=== PATIENT | female | born 1930 | race Caucasian/White ===

== ENCOUNTER 2016-10-15 10:20 | Inpatient (IN) | payer MEDICARE, OTHER ==
[~2016-10-15] VITALS: Ht 160 cm; Wt 55.7 kg
[~2016-10-15 10:20] MED LIST: LEVO25TA4 PO
--- OUTSIDE RECORDS SUMMARY | 2016-10-15 10:25 | XMS REPORT | Referral Summary ---
Author Author [facility] Organization [facility] Address Unknown Phone Unavailable Care Team Providers Care Sponge Fisherman Name Role Phone Barry Reyes Primary Care Physician [phone] Encounter VC Date(s): 09/19/15 - 09/19/15 [facility] [address] [place] [address] Discharge Diagnosis: Dependent edema Discharge Diagnosis: Stasis dermatitis Discharge Diagnosis: Adult onset hypothyroidism Discharge Disposition: 01-Home or Self Care Attending Physician: Barry Reyes DO Admitting Physician: Barry Reyes DO Vital Signs Most recent to 1 oldest [Reference Range]: Temperature Tympanic 37 degC [36.6-38.1 degC] (09/19/15 11:08 AM) Peripheral Pulse 76 bpm Rate [60-100 bpm] (09/19/15 11:08 AM) Blood Pressure 120/90 mmHg [90-140/60-90 mmHg] (09/19/15 11:08 AM) SpO2 98 % (09/19/15 11:08 AM) Problem List No data available for this section Allergies, Adverse Reactions, Alerts Substance Reaction Severity Status morphine Active Medications Keflex 500 mg oral capsule 500 mg 1 caps, Oral, BID, X 7 days, # 14 caps, 0 Refill(s), Pharmacy: [id number], 1 caps Oral BID,x7 days Start Date: 09/16/15 Stop Date: 09/23/15 Status: Ordered Lasix 20 mg oral tablet 20 mg 1 tabs, Oral, Daily, # 30 tabs, 0 Refill(s), Pharmacy: [facility] [id number], 1 tabs Oral Daily Start Date: 09/14/15 Status: Ordered levothyroxine 25 mcg (0.025 mg) oral tablet 25 mcg 1 tabs, Oral, Daily, # 30 tabs, 2 Refill(s), Pharmacy: [id number], 1 tabs Oral Daily Start Date: 09/15/15 Status: Ordered potassium chloride 10 mEq oral tablet, extended release 10 mEq 1 tabs, Oral, Daily, # 30 tabs, 0 Refill(s), Pharmacy: [facility] [id number], 1 tabs Oral Daily,x30 days Start Date: 09/14/15 Stop Date: 10/14/15 Status: Ordered Results No data available for this section Immunizations No data available for this section Procedures Procedure Date Related Diagnosis Body Site Cataract extraction and insertion of intraocular lens Social History Social History Type Response Smoking Status Never smoker Assessment and Plan Extracted from: Title: Ambulatory Patient Education Author: Barry Reyes DO Date: 09/19/15 Allergy Edema Edema is an abnormal buildup of fluids in your bodytissues. Edema is somewhat dependent on gravity to pull the fluid to the lowest place in your body. That makes the condition more common in the legs and thighs (lower extremities). Painless swelling of the feet and ankles is common and becomes more likely as you get older. It is also common in looser tissues, like around your eyes. When the affected area is squeezed, the fluid may move out of that spot and leave a dent for a few moments. This dent is called pitting. CAUSES There are many possible causes of edema. Eating too much salt and being on your feet or sitting for a long time can cause edema in your legs and ankles. Hot weather may make edema worse. Common medical causes of edema include: Heart failure. Liver disease. Kidney disease. Weak blood vessels in your legs. Cancer. An injury. . Some medications. Obesity. SYMPTOMS Edema is usually painless.Your skin may look swollen or shiny. DIAGNOSIS Your health care provider may be able to diagnose edema by asking about your medical history and doing a physical exam. You may need to have tests such as X- rays, an electrocardiogram, or blood tests to check for medical conditions that may cause edema. TREATMENT Edema treatment depends on the cause. If you have heart, liver, or kidney disease, you need the treatment appropriate for these conditions. General treatment may include: Elevation of the affected body part above the level of your heart. Compression of the affected body part. Pressure from elastic bandages or support stockings squeezes the tissues and forces fluid back into the blood vessels. This keeps fluid from entering the tissues. Restriction of fluid and salt intake. Use of a water pill (diuretic). These medications are appropriate only for some types of edema. They pull fluid out of your body and make you urinate more often. This gets rid of fluid and reduces swelling, but diuretics can have side effects. Only use diuretics as directed by your health care provider. HOME CARE INSTRUCTIONS Keep the affected body part above the level of your heart when you are lying down. Do not sit still or stand for prolonged periods. Do not put anything directly under your knees when lying down. Do not wear constricting clothing or garters on your upper legs. Exercise your legs to work the fluid back into your blood vessels. This may help the swelling go down. Wear elastic bandages or support stockings to reduce ankle swelling as directed by your health care provider. Eat a low-salt diet to reduce fluid if your health care provider recommends it. Only take medicines as directed by your health care provider. SEEK MEDICAL CARE IF: Your edema is not responding to treatment. You have heart, liver, or kidney disease and notice symptoms of edema. You have edema in your legs that does not improve after elevating them. You have sudden and unexplained weight gain. SEEK IMMEDIATE MEDICAL CARE IF: You develop shortness of breath or chest pain. You cannot breathe when you lie down. You develop pain, redness, or warmth in the swollen areas. You have heart, liver, or kidney disease and suddenly get edema. You have a fever and your symptoms suddenly get worse. MAKE SURE YOU: Understand these instructions. Will watch your condition. Will get help right away if you are not doing well or get worse. This information is not intended to replace advice given to you by your health care provider. Make sure you discuss any questions you have with your health care provider. Document Released: 06/24/2006 Document Revised: 11/08/2014 Document Reviewed: [facility] Patient Information 2015 [employer]. Family Medicine Compression Stockings Compression stockings are elastic stockings that "compress" your legs. This helps to increase blood flow, decrease swelling, and reduces the chance of getting blood clots in your lower legs. Compression stockings are used: After surgery. If you have a history of poor circulation. If you are prone to blood clots. If you have varicose veins. If you sit or are bedridden for long periods of time. WEARING COMPRESSION STOCKINGS Your compression stockings should be worn as instructed by your caregiver. Wearing the correct stocking size is important. Your caregiver can help measure and fit you to the correct size. When wearing your stockings, do not allow the stockings to bunch up. This is especially important around your toes or behind your knees. Keep the stockings as smooth as possible. Do not roll the stockings downward and leave them rolled down. This can form a restrictive band around your legs and can decrease blood flow. The stockings should be removed once a day for 1 hour or as instructed by your caregiver. When the stockings are taken off, inspect your legs and feet. Look for: Open sores. Red spots. Puffy areas (swelling). Anything that does not seem normal. IMPORTANT INFORMATION ABOUT COMPRESSION STOCKINGS The compression stockings should be clean, dry, and in good condition before you put them on. Do not put lotion on your legs or feet. This makes it harder to put the stockings on. Change your stockings immediately if they become wet or soiled. Do not wear stockings that are ripped or torn. You may hand-wash or put your stockings in the washing machine. Use cold or warm water with mild detergent. Do not bleach your stockings. They may be air -dried or dried in the dryer on low heat. If you have pain or have a feeling of "pins and needles" in your feet or legs, you may be wearing stockings that are too tight. Call your caregiver right away. SEEK IMMEDIATE MEDICAL CARE IF: You have numbness or tingling in your lower legs that does not get better quickly after the stockings are removed. Your toes or feet become cold and blue. You develop open sores or have red spots on your legs that do not go away. MAKE SURE YOU: Understand these instructions. Will watch your condition. Will get help right away if you are not doing well or get worse. This information is not intended to replace advice given to you by your health care provider. Make sure you discuss any questions you have with your health care provider. Document Released: 04/21/2010 Document Revised: 09/15/2012 Document Reviewed: [facility] Patient Information 2015 [employer] [facility]. Hypothyroidism Hypothyroidism is a disorder of the thyroid. The thyroid is a large gland that is located in the lower front of the neck. The thyroid releases hormones that control how the body works. With hypothyroidism, the thyroid does not make enough of these hormones. CAUSES Causes of hypothyroidism may include: Viral infections. . Your own defense system (immune system) attacking your thyroid. Certain medicines. defects. Past radiation treatments to your head or neck. Past treatment with radioactive iodine. Past surgical removal of part or all of your thyroid. Problems with the gland that is located in the center of your brain ( pituitary). SIGNS AND SYMPTOMS Signs and symptoms of hypothyroidism may include: Feeling as though you have no energy (lethargy). Inability to tolerate cold. Weight gain that is not explained by a change in diet or exercise habits. Dry skin. Coarse hair. Menstrual irregularity. Slowing of thought processes. Constipation. Sadness or depression. DIAGNOSIS Your health care provider may diagnose hypothyroidism with blood tests and ultrasound tests. TREATMENT Hypothyroidism is treated with medicine that replaces the hormones that your body does not make. After you begin treatment, it may take several weeks for symptoms to go away. HOME CARE INSTRUCTIONS Take medicines only as directed by your health care provider. If you start taking any new medicines, tell your health care provider. Keep all follow-up visits as directed by your health care provider. This is important. As your condition improves, your dosage needs may change. You will need to have blood tests regularly so that your health care provider can watch your condition. SEEK MEDICAL CARE IF: Your symptoms do not get better with treatment. You are taking thyroid replacement medicine and: You sweat excessively. You have tremors. You feel anxious. You lose weight rapidly. You cannot tolerate heat. You have emotional swings. You have diarrhea. You feel weak. SEEK IMMEDIATE MEDICAL CARE IF: You develop chest pain. You develop an irregular heartbeat. You develop a rapid heartbeat. This information is not intended to replace advice given to you by your health care provider. Make sure you discuss any questions you have with your health care provider. Document Released: 06/24/2006 Document Revised: 04/12/2015 Document Reviewed: [employer] Patient Information 2015 [employer]. No follow up information was provided. Extracted from: Title: Dependent edema, stasis Author: Barry Reyes DO Date: 09/19/15 dermatitis, hypothyroidism Assessment/Plan Adult onset hypothyroidism, Other specified hypothyroidism 1. Review of her labs demonstrate her TSH being slightly elevated. 2. She was started on levothyroxine at 0.25 mg daily. 3. Recheck TSH in 6 weeks. Ordered: Office Visit Level 4 Est 64116 Dependent edema, Localized edema 1. Her edema does not seem to have improved compared to last week. 2. Increase Lasix to 40 mg daily. 3. Recent potassium 10 milliequivalents to 3 times a day. 4. Elevate legs when resting. 5. Low salt diet recommended. 6. Increase protein in her diet. Ordered: Office Visit Level 4 Est 48552 Stasis dermatitis, Varicose veins of right lower extremity with inflammation 1. I do not find any evidence of cellulitis. Findings are more consistent with stasis dermatitis. 2. I anticipate that once we get the fluid under control the redness and warmth sensation to her lower extremities should resolve. 3. Continue the antibiotics since we already started it. Ordered: Office Visit Level 4 Est 12050
--- OUTSIDE RECORDS SUMMARY | 2016-10-15 10:25 | XMS REPORT | Referral Summary ---
Author Author [facility] Organization [facility] Address Unknown Phone Unavailable Care Team Providers Care Fountain Server Name Role Phone Barry Reyes Primary Care Physician [phone] Encounter VC Date(s): 04/26/16 - 04/26/16 [facility], [address] [place] [address] Discharge Diagnosis: HTN (hypertension) Discharge Disposition: 01-Home or Self Care Attending Physician: Barry Reyes DO Admitting Physician: Barry Reyes DO Vital Signs Most recent to 1 oldest [Reference Range]: Temperature Tympanic 35.2 degC [36.6-38.1 degC] *LOW* (04/26/16 10:34 AM) Peripheral Pulse 65 bpm Rate [60-100 bpm] (04/26/16 10:34 AM) Blood Pressure 192/102 mmHg [90-140/60-90 mmHg] *HI* (04/26/16 10:34 AM) Problem List Condition Effective Dates Status Health Status Informant Wet senile macular Active degeneration(Confirm ed) Adult onset Active hypothyroidism(Confi rmed) Allergies, Adverse Reactions, Alerts Substance Reaction Severity Status morphine Active Medications amLODIPine 5 mg oral tablet 5 mg 1 tabs, Oral, Daily, # 30 tabs, 0 Refill(s), Pharmacy: [facility] [id number], 1 tabs Oral Daily Start Date: 04/26/16 Status: Ordered levothyroxine 25 mcg (0.025 mg) oral tablet See Instructions, TAKE 1 TABLET BY MOUTH DAILY, # 30 tabs, eRx: [facility] [id number], TAKE 1 TABLET BY MOUTH DAILY Start Date: 11/28/15 Status: Ordered levothyroxine 25 mcg (0.025 mg) oral tablet 25 mcg 1 tabs, Oral, Daily, # 90 tabs, 2 Refill(s), Pharmacy: [facility] [id number], 1 tabs Oral Daily Start Date: 01/03/16 Status: Ordered lutein Oral, Daily, 0 Refill(s) Start Date: 04/26/16 Status: Ordered Results No data available for this section Immunizations No data available for this section Procedures Procedure Date Related Diagnosis Body Site Cataract extraction and insertion of intraocular lens Social History Social History Type Response Smoking Status Never smoker Assessment and Plan Extracted from: Title: Office Visit Note Author: Barry Reyes DO Date: 04/26/16 Assessment/Plan HTN (hypertension) 1. Blood pressure is significantly elevated 2. Low salt diet recommended 3. Amlodipine 5 mg daily 4. Follow-up in 2 weeks for reevaluation Ordered: Office Visit Level 4 Est 36576 Continue levothyroxine as previous.
--- OUTSIDE RECORDS SUMMARY | 2016-10-15 10:25 | XMS REPORT | Referral Summary ---
Author Author [facility] Organization [facility] Address Unknown Phone Unavailable Care Team Providers Care Equipment Service Technician Name Role Phone Barry Reyes Primary Care Physician [phone] Encounter VC Date(s): 05/10/16 - 05/10/16 [facility], Family [address] [place] [address] Discharge Diagnosis: HTN (hypertension) Discharge Disposition: 01-Home or Self Care Attending Physician: Barry Reyes DO Admitting Physician: Barry Reyes DO Vital Signs Most recent to 1 oldest [Reference Range]: Temperature Tympanic 36.3 degC [36.6-38.1 degC] *LOW* (05/10/16 1:07 PM) Peripheral Pulse 68 bpm Rate [60-100 bpm] (05/10/16 1:07 PM) Blood Pressure 130/62 mmHg [90-140/60-90 mmHg] (05/10/16 1:07 PM) Problem List Condition Effective Dates Status Health Status Informant Wet senile macular Active degeneration(Confirm ed) Adult onset Active hypothyroidism(Confi rmed) Allergies, Adverse Reactions, Alerts Substance Reaction Severity Status morphine Active Medications amLODIPine 5 mg oral tablet 5 mg 1 tabs, Oral, Daily, # 90 tabs, 3 Refill(s), Pharmacy: [facility] [id number], 1 tabs Oral Daily Start Date: 05/10/16 Status: Ordered levothyroxine 25 mcg (0.025 mg) oral tablet See Instructions, TAKE 1 TABLET BY MOUTH DAILY, # 30 tabs, eRx: [facility] [id number], TAKE 1 TABLET BY MOUTH DAILY Start Date: 11/28/15 Status: Ordered levothyroxine 25 mcg (0.025 mg) oral tablet 25 mcg 1 tabs, Oral, Daily, # 90 tabs, 2 Refill(s), Pharmacy: [facility] [id number], 1 tabs Oral Daily Start Date: 01/03/16 [...] Visit Note Author: Barry Reyes DO Date: 05/10/16 Assessment/Plan 1.HTN (hypertension) 1. Blood pressure is controlled at this time. 2. Continue with low salt diet. 3. Continue with Amlodipine 5mg daily. 4. Followup in 6 months for reevaluation. Ordered: Office Visit Level 3 Est 75598
--- OUTSIDE RECORDS SUMMARY | 2016-10-15 10:26 | XMS REPORT | Referral Summary ---
Author Author [facility] Organization [facility] Address Unknown Phone Unavailable Care Team Providers Care Correctional Corporal Name Role Phone Barry Reyes Primary Care Physician [phone] Encounter VC Date(s): 10/06/15 - 10/06/15 [facility] [address] [place] [address] Discharge Diagnosis: Wet senile macular degeneration Discharge Diagnosis: Adult onset hypothyroidism Discharge Disposition: 01-Home or Self Care Attending Physician: Brary Reyes DO Admitting Physician: Barry Reyes DO Vital Signs Most recent to 1 oldest [Reference Range]: Temperature Tympanic 36.9 degC [36.6-38.1 degC] (10/06/15 9:48 AM) Peripheral Pulse 74 bpm Rate [60-100 bpm] (10/06/15 9:48 AM) Blood Pressure 120/65 mmHg [90-140/60-90 mmHg] (10/06/15 9:48 AM) Problem List Condition Effective Dates Status Health Status Informant Wet senile macular Active degeneration(Confirm ed) Adult onset Active hypothyroidism(Confi rmed) Allergies, Adverse Reactions, Alerts Substance Reaction Severity Status morphine Active Medications levothyroxine 25 mcg (0.025 mg) oral tablet 25 mcg 1 tabs, Oral, Daily, # 30 tabs, 2 Refill(s), Pharmacy: [facility] [address], 1 tabs Oral Daily Start Date: 09/15/15 Status: Ordered Results Chemistry Most recent to 1 oldest [Reference Range]: Sodium Venous 137 mmol/L [136-145 mmol/L] (10/06/15 10:25 AM) Potassium Venous 3.7 mmol/L 1 [3.5-5.1 mmol/L] (10/06/15 10:25 AM) Calcium Ionized 1.17 mmol/L Venous [1.10-1.30 (10/06/15 10:25 AM) mmol/L] Total CO2 Venous 20 mmol/L [24-29 mmol/L] *LOW* (10/06/15 10:25 AM) Glucose Venous 139 mg/dL [70-100 mg/dL] *HI* (10/06/15 10:25 AM) BUN Venous [8-26] 17 (10/06/15 10:25 AM) Creatinine Venous 1.0 mg/dL [0.6-1.2 mg/dL] (10/06/15 10:25 AM) Venous CL [98-109 100 mmol/L mmol/L] (10/06/15 10:25 AM) 1Result Comment: This test was performed on a whole blood specimen. The presence or absence of hemolysis cannot be assessed. Hemolysis can falsely elevate potassium levels. Normals are for venous specimens only. Immunizations No data available for this section Procedures Procedure Date Related Diagnosis Body Site Cataract extraction and insertion of intraocular lens Social History Social History Type Response Smoking Status Never smoker Assessment and Plan Extracted from: Title: Transition of care Author: Barry Reyes DO Date: 10/06/15 [place] [facility]/Plan Adult onset hypothyroidism Continue with levothyroxine at 25 g daily. CKD (chronic kidney disease) stage 3, GFR 30-59 ml/min 1. Labs repeated today for basic metabolic profile and magnesium. We will adjust electrolytes accordingly. 2. Duration recommended. 3. We will avoid using diuretic in the future secondary to increased risk for electrolyte imbalance and dehydration. Ordered: Basic Metabolic Panel Magnesium Level Office Visit Level 4 Est 61917 Electrolyte imbalance As above. Ordered: Basic Metabolic Panel Magnesium Level Office Visit Level 4 Est 44886 Wet senile macular degeneration Recommendations as per shadow graph weight operator.
--- OUTSIDE RECORDS SUMMARY | 2016-10-15 10:26 | XMS REPORT | Referral Summary ---
Author Author [facility] Organization [facility] Address Unknown Phone Unavailable Care Team Providers Care Rag Sorter And Cutter Name Role Phone No PCP, States Primary Care Physician [phone] Encounter VC Date(s): 08/30/15 - 08/30/15 [facility] [address] [place] [id number] Discharge Diagnosis: History of recent fall Discharge Disposition: 01-Home or Self Care Attending Physician: Greg Cody MD Admitting Physician: Greg Cody MD Vital Signs Most recent to 1 oldest [Reference Range]: Temperature Tympanic 37.7 degC [36.6-38.1 degC] (08/30/15 10:32 AM) Peripheral Pulse 83 bpm Rate [60-100 bpm] (08/30/15 10:32 AM) Blood Pressure 120/90 mmHg [90-140/60-90 mmHg] (08/30/15 10:32 AM) SpO2 98 % (08/30/15 10:32 AM) Problem List No data available for this section Allergies, Adverse Reactions, Alerts Substance Reaction Severity Status morphine Active Medications No Known Medications Results Hematology Most recent to 1 oldest [Reference Range]: WBC [5.0-10.0 7.2 10*3/uL 10*3/uL] (08/30/15 12:00 PM) RBC [3.70-5.20] 4.30 (08/30/15 12:00 PM) Hgb [12.0-16.0 12.7 gm/dL gm/dL] (08/30/15 12:00 PM) Hct [37.0-47.0 %] 38.5 % (08/30/15 12:00 PM) MCV [80.0-96.0 fL] 89.5 fL (08/30/15 12:00 PM) MCH [26.0-34.0 pg] 29.5 pg (08/30/15 12:00 PM) MCHC [32.0-36.0 33.0 gm/dL gm/dL] (08/30/15 12:00 PM) RDW [0.0-14.5 %] 13.1 % (08/30/15 12:00 PM) Platelet [150-400 275 10*3/uL 10*3/uL] (08/30/15 12:00 PM) MPV [8.8-14.8 fL] 10.3 fL (08/30/15 12:00 PM) Neutrophils [50-70 76 % %] *HI* (08/30/15:00 PM) Lymphocytes [20-40 11 % %] *LOW* (08/30/15:00 PM) Monocytes [4-8 %] 13 % *HI* (08/30/15 12:00 PM) Eosinophils [0-6 %] 1 % (08/30/15:00 PM) Basophils [0-2 %] 0 % (08/30/15 12:00 PM) Neutro Absolute 5.47 10*3 [2.50-7.00 10*3] (08/30/15 12:00 PM) Lymph Absolute 0.76 10*3 [1.00-4.00 10*3] *LOW* (08/30/15 12:00 PM) [place] Absolute 0.94 10*3 [0.20-0.80 10*3] *HI* (08/30/15 12:00 PM) Eos Absolute 0.04 10*3 [0.00-0.60 10*3] (08/30/15 12:00 PM) Baso Absolute 0.01 [0.00-0.30] (08/30/15 12:00 PM) Urinalysis Most recent to 1 oldest [Reference Range]: UA Color Dk Yellow (08/30/15 12:08 PM) UA Appear Clear (08/30/15 12:08 PM) UA pH [5.0-8.0] 5.5 (08/30/15 12:08 PM) UA Leuk Est Negative [Negative] (08/30/15 12:08 PM) UA Nitrite Negative [Negative] (08/30/15 12:08 PM) UA Protein Trace [Negative] *ABN* (08/30/15 12:08 PM) UA Glucose Negative [Negative] (08/30/15 12:08 PM) UA Ketones Trace [Negative] *ABN* (08/30/15 12:08 PM) UA Urobilinogen 1.0 mg/dL [<=1.0 mg/dL] (08/30/15 12:08 PM) UA Bili [Negative] Negative (08/30/15 12:08 PM) UA Blood [Negative] Pos 1+ *ABN* (08/30/15 12:08 PM) UA Spec Grav 1.025 [1.003-1.030] (08/30/15 12:08 PM) Type Clean Catch (08/30/15 12:08 PM) UA WBC [0-4] 0-2 (08/30/15 12:08 PM) UA RBC [0-2] 0-2 (08/30/15 12:08 PM) Epithelial Cells 10-20 (08/30/15 12:08 PM) UA Bacteria Occasional *ABN* (08/30/15 12:08 PM) Crystals Amorphous 1 (08/30/15 12:08 PM) UA Hyal Cast 4-6 (08/30/15 12:08 PM) UA Mucous Present (08/30/15 12:08 PM) 1Result Comment: Occasional Immunizations No data available for this section Procedures Procedure Date Related Diagnosis Body Site Cataract extraction and insertion of intraocular lens Social History Social History Type Response Smoking Status Never smoker Assessment and Plan Extracted from: Title: DOC, initial visit Author: Greg Cody MD Date: 08/30/15 Assessment/Plan History of recent fall Leg swelling Ordered: Message for Lab Weakness Evaluation included TSH,CMP, CBC, UA, and chest x-ray. Abnormal findings includedmild to moderate cardiomegalywith some possiblesmall right pleural effusion. There was a comment of a compression deformity although clinically this is probably old. Her urinalysis did include someminor proteinuriaand red blood cells. However no acute infection or acute processes identified contributing to her weakness and recent fall. We were joined by her other daughter and son-in-law afterthe labs came back. We discussed the social situation and she is certainly at increased riskof recurrent falls. I suggested that they may want to considerassisted living placement. We will also try to look into home health forphysical therapy/ strengthening. She needs to get established with a primary care physician for ongoing care. We discussed importance of fall prevention totry to prevent further injury. [place] for future follow-upwould include follow-up on theabnormalities on urinalysis, and possible evaluation for dementia. Paola Danielson wascontacted forcase management.
--- OUTSIDE RECORDS SUMMARY | 2016-10-15 10:26 | XMS REPORT | Continuity of Care Document ---
Author Author [facility] Organization [facility] Address Unknown Phone Unavailable Allergies Active Description Code Type Severity Reaction Onset Reported/Identified Relationship to Patient Clinical Status Yes morphine morphine Drug Allergy Moderate FAMILY STATES WILL KNOCK HER OUT 09/26/2016 Yes No Known Drug Allergies No Known Drug Allergies Drug Allergy Unknown NONE 09/26/2016 Medications Problems Date Dx Coded Attending Type Code Diagnosis Diagnosed By 09/10/2016 Kurtis Simpson MD E03.9 HYPOTHYROIDISM, UNSPECIFIED 09/10/2016 Kurtis Simpson MD E78.5 HYPERLIPIDEMIA, UNSPECIFIED 09/10/2016 Kurtis Simpson MD 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, UNSPECIFIED AFFECTING LEFT NONDOMINANT 09/10/2016 Kurtis Simpson MD H35.30 UNSPECIFIED MACULAR DEGENERATION 09/10/2016 Kurtis Simpson MD I10 ESSENTIAL (PRIMARY) HYPERTENSION 09/10/2016 Kurtis Simpson MD 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 09/10/2016 Kurtis Simpson MD I73.9 PERIPHERAL VASCULAR DISEASE, UNSPECIFIED 09/10/2016 Kurtis Simpson MD R13.10 DYSPHAGIA, UNSPECIFIED 09/10/2016 Kurtis Simpson MD R29.707 NIHSS SCORE 7 09/10/2016 Kurtis Simpson MD R29.810 FACIAL WEAKNESS 09/10/2016 Kurtis Simpson MD 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 09/10/2016 Kurtis Simpson MD R47.81 SLURRED SPEECH 09/10/2016 Kurtis Simpson MD R53.1 WEAKNESS 09/10/2016 Kurtis Simpson MD R59.0 LOCALIZED ENLARGED LYMPH NODES 09/10/2016 Kurtis Simpson MD S00.81XA ABRASION OF OTHER PART OF HEAD, INITIAL ENCOUNTER 09/28/2016 KEANU BARONE MD E03.9 HYPOTHYROIDISM, UNSPECIFIED 09/28/2016 KEANU BARONE MD E78.5 HYPERLIPIDEMIA, UNSPECIFIED 09/28/2016 KEANU BARONE MD H35.30 UNSPECIFIED MACULAR DEGENERATION 09/28/2016 KEANU BARONE MD I10 ESSENTIAL (PRIMARY) HYPERTENSION 09/28/2016 KEANU BARONE MD I48.0 PAROXYSMAL ATRIAL FIBRILLATION 09/28/2016 KEANU BARONE MD 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 09/28/2016 KEANU BARONE MD 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 09/28/2016 KEANU BARONE MD 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 ANTICOAGULANTS 09/28/2016 KEANU BARONE MD Z79.02 KEY BED INSTALLER (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 OF ANTITHROMBOTICS/ ANTIPLA 09/28/2016 KEANU BARONE MD Z79.82 KEY BED INSTALLER (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 OF ASPIRIN 09/28/2016 KEANU BARONE MD Z88.5 ALLERGY STATUS TO NARCOTIC AGENT STATUS Procedures Code Description Performed By Performed On 14EV3OM EXTIRPATION OF MATTER FROM R INT CAROTID, OPEN KARISHMA KEANU BARONE MD 09/28/2016 [id number] SUPPLEMENT R INT CAROTID WITH NONAUT SUB, OPEN KARISHMA KEANU BARONE MD 09/28/2016 Results Test Result Range CBC W/DIFF - 09/10/16 15:16 GRANULOCYTE # 2.6 k/cumm 2.0-9.0 GRANULOCYTE % 73 % 50-75 LYMPHOCYTE # 0.4 k/cumm 1.0-4.0 LYMPHOCYTE % 11 % 20-30 MEAN CELL HGB 30.4 pg 27.0-33.0 MEAN CELL HGB CONCENTRATION 33.2 g/dL 32.0-37.0 MEAN CELL VOLUME 91.6 fl 80.0-100.0 MONOCYTE # 0.5 k/cumm 0.1-1.0 MONOCYTE % 15 % 4-6 RED BLOOD CELL 4.77 m/cumm 4.00-6.00 RED CELL DISTRIBUTION WIDTH 14.0 % 11.0- 15.6 WHITE BLOOD CELL 3.9 k/cumm 5.0-10.0 HEMOGLOBIN 14.5 gm/dL 12.0-16.0 HEMATOCRIT 43.7 % 37.0-47.0 PLATELET COUNT 212 k/cumm 150-400 PROTHROMBIN TIME WITH INR - 09/10/16 15:16 INTERNATIONAL NORMAL RATIO 1.0 0.9-1.1 PROTHROMBIN TIME 11.0 sec 10.0-12.9 TROPONIN I - 09/10/16 15:16 TROPONIN I < 0.02 ng/mL < 0.07 CHEM/HEM PROFILE-BEDSIDE - 09/10/16 15:21 POTASSIUM 4.1 mmol/L 3.5-5.3 METHOD Bedside ANION GAP 19 mmol/L 10-20 METHOD Bedside GLUCOSE 123 mg/dL 70-99 BLOOD UREA NITROGEN 25 mg/dL 7-20 CREATININE 1.0 mg/dL 0.6-1.0 HEMOGLOBIN 15.0 gm/dL 12.0-16.0 HEMATOCRIT 44.0 % 37.0-47.0 SODIUM 143 mmol/L 135-148 CHLORIDE 108 mmol/L 98-110 CARBON DIOXIDE 21 mmol/L 21-32 CALCIUM IONIZED 4.6 mg/dL 4.5-5.3 URINALYSIS, ROUTINE - 09/10/16 16:11 UA LEUKOCYTE ESTERASE DIPSTICK NEGATIVE NEGATIVE UA NITRITE DIPSTICK NEGATIVE NEGATIVE UA PROTEIN DIPSTICK NEGATIVE NEGATIVE UA GLUCOSE DIPSTICK NEGATIVE NEGATIVE UA KETONE DIPSTICK 1+ NEGATIVE UA UROBILINOGEN DIPSTICK NORMAL NORMAL UA BILIRUBIN DIPSTICK NEGATIVE NEGATIVE UA BLOOD DIPSTICK NEGATIVE NEGATIVE UA SPECIFIC GRAVITY 1.025 1.015-1.025 UR PH 6.5 5.0-7.0 CBC W/DIFF - 09/11/16 05:37 GRANULOCYTE # 2.7 k/cumm 2.0-9.0 GRANULOCYTE % 66 % 50-75 LYMPHOCYTE # 0.7 k/cumm 1.0-4.0 LYMPHOCYTE % 18 % 20-30 MEAN CELL HGB 29.8 pg 27.0-33.0 MEAN CELL HGB CONCENTRATION 32.6 g/dL 32.0-37.0 MEAN CELL VOLUME 91.5 fl 80.0-100.0 MONOCYTE # 0.6 k/cumm 0.1-1.0 MONOCYTE % 15 % 4-6 RED BLOOD CELL 4.49 m/cumm 4.00-6.00 RED CELL DISTRIBUTION WIDTH 13.9 % 11.0- 15.6 WHITE BLOOD CELL 4.1 k/cumm 5.0-10.0 HEMOGLOBIN 13.4 gm/dL 12.0-16.0 HEMATOCRIT 41.1 % 37.0-47.0 PLATELET COUNT 205 k/cumm 150-400 METABOLIC PANEL, BASIC - 09/11/16 05:37 POTASSIUM 3.9 mmol/L 3.5-5.3 EST GFR (MDRD) 52 mL/min > 59 ANION GAP 9 mmol/L 5-15 EST CrCl (CG) 29 mL/min > 59 GLUCOSE 91 mg/dL 70-99 CALCIUM 8.3 mg/dL 8.5-10.1 BLOOD UREA NITROGEN 21 mg/dL 7-20 CREATININE 1.0 mg/dL 0.6-1.0 SODIUM 144 mmol/L 135-148 CHLORIDE 113 mmol/L 98-110 CARBON DIOXIDE 22 mmol/L 21-32 LIPID PANEL - 09/11/16 05:37 CHOLESTEROL/HDL RATIO 3.6 < 5.0 LDL CHOLESTEROL 145 mg/dL < 100 VLDL CHOLESTEROL 18 mg/dL < 30 TRIGLYCERIDES 89 mg/dL < 150 CHOLESTEROL 225 mg/dL < 200 HDL CHOLESTEROL 62 mg/dL > 39 CREATINE KINASE (CK/CPK) - 09/11/16 05:37 CREATINE KINASE (CK/CPK) 133 Units/L < 193 MAGNESIUM - 09/11/16 05:37 MAGNESIUM 2.4 mg/dL 1.8-2.4 GLUCOSE (POC) - 09/11/16 10:29 GLUCOSE (POC) 114 mg/dL 70-99 GLUCOSE (POC) - 09/11/16 14:05 GLUCOSE (POC) 110 mg/dL 70-99 GLUCOSE (POC) - 09/11/16 20:57 GLUCOSE (POC) 99 mg/dL 70-99 GLUCOSE (POC) - 09/12/16 05:26 GLUCOSE (POC) 103 mg/dL 70-99 GLUCOSE (POC) - 09/12/16 10:13 GLUCOSE (POC) 111 mg/dL 70-99 GLUCOSE (POC) - 09/12/16 16:26 GLUCOSE (POC) 136 mg/dL 70-99 CBC - 09/13/16 06:00 MEAN CELL HGB 30.2 pg 27.0-33.0 MEAN CELL HGB CONCENTRATION 33.2 g/dL 32.0-37.0 MEAN CELL VOLUME 90.9 fl 80.0-100.0 RED BLOOD CELL 4.94 m/cumm 4.00-6.00 RED CELL DISTRIBUTION WIDTH 14.0 % 11.0- 15.6 WHITE BLOOD CELL 3.8 k/cumm 5.0-10.0 HEMOGLOBIN 14.9 gm/dL 12.0-16.0 HEMATOCRIT 44.9 % 37.0-47.0 PLATELET COUNT 235 k/cumm 150-400 [facility] - 09/[facility]/16 06:00 POTASSIUM 3.5 mmol/L 3.5-5.3 EST GFR (MDRD) 30 mL/min > 59 ANION GAP 9 mmol/L 5-15 GLUCOSE 112 mg/dL 70-99 CALCIUM 9.0 mg/dL 8.5-10.1 BLOOD UREA NITROGEN 33 mg/dL 7-20 CREATININE 1.6 mg/dL 0.6-1.0 SODIUM 141 mmol/L 135-148 CHLORIDE 110 mmol/L 98-110 AST/SGOT 37 Units/L 10-37 ALT/SGPT 27 Units/L < 66 CARBON DIOXIDE 22 mmol/L 21-32 TOTAL PROTEIN 7.7 gm/dL 6.4-8.2 ALBUMIN 3.6 gm/dL 3.4-5.0 BILI TOTAL 0.7 mg/dL 0.0-1.0 ALKALINE PHOSPHATASE TOTAL 101 IU/L 45- 117 MAGNESIUM - 09/13/16 06:00 MAGNESIUM 2.5 mg/dL 1.8-2.4 CBC - 09/17/16 06:00 MEAN CELL HGB 30.1 pg 27.0-33.0 MEAN CELL HGB CONCENTRATION 32.9 g/dL 32.0-37.0 MEAN CELL VOLUME 91.4 fl 80.0-100.0 RED BLOOD CELL 4.79 m/cumm 4.00-6.00 RED CELL DISTRIBUTION WIDTH 13.8 % 11.0- 15.6 WHITE BLOOD CELL 3.4 k/cumm 5.0-10.0 HEMOGLOBIN 14.4 gm/dL 12.0-16.0 HEMATOCRIT 43.8 % 37.0-47.0 PLATELET COUNT 211 k/cumm 150-400 METABOLIC PANEL, [facility] - 09/17/16 06:00 POTASSIUM 4.1 mmol/L 3.5-5.3 EST GFR (MDRD) 47 mL/min > 59 ANION GAP 8 mmol/L 5-15 GLUCOSE 91 mg/dL 70-99 CALCIUM 8.5 mg/dL 8.5-10.1 BLOOD UREA NITROGEN 27 mg/dL 7-20 CREATININE 1.1 mg/dL 0.6-1.0 SODIUM 144 mmol/L 135-148 CHLORIDE 115 mmol/L 98-110 AST/SGOT 36 Units/L 10-37 ALT/SGPT 31 Units/L < 66 CARBON DIOXIDE 21 mmol/L 21-32 TOTAL PROTEIN 7.2 gm/dL 6.4-8.2 ALBUMIN 3.4 gm/dL 3.4-5.0 BILI TOTAL 0.6 mg/dL 0.0-1.0 ALKALINE PHOSPHATASE TOTAL 99 IU/L 45- 117 MAGNESIUM - 09/17/16 06:00 MAGNESIUM 2.4 mg/dL 1.8-2.4 CBC - 09/20/16 06:00 MEAN CELL HGB 29.9 pg 27.0-33.0 MEAN CELL HGB CONCENTRATION 33.0 g/dL 32.0-37.0 MEAN CELL VOLUME 90.8 fl 80.0-100.0 RED BLOOD CELL 4.11 m/cumm 4.00-6.00 RED CELL DISTRIBUTION WIDTH 13.5 % 11.0- 15.6 WHITE BLOOD CELL 4.3 k/cumm 5.0-10.0 HEMOGLOBIN 12.3 gm/dL 12.0-16.0 HEMATOCRIT 37.3 % 37.0-47.0 PLATELET COUNT 204 k/cumm 150-400 METABOLIC PANEL, [facility] - 09/20/16 06:00 POTASSIUM 3.7 mmol/L 3.5-5.3 EST GFR (MDRD) 52 mL/min > 59 ANION GAP 8 mmol/L 5-15 GLUCOSE 93 mg/dL 70-99 CALCIUM 8.6 mg/dL 8.5-10.1 BLOOD UREA NITROGEN 26 mg/dL 7-20 CREATININE 1.0 mg/dL 0.6-1.0 SODIUM 145 mmol/L 135-148 CHLORIDE 114 mmol/L 98-110 AST/SGOT 24 Units/L 10-37 ALT/SGPT 27 Units/L < 66 CARBON DIOXIDE 23 mmol/L 21-32 TOTAL PROTEIN 6.5 gm/dL 6.4-8.2 ALBUMIN 3.0 gm/dL 3.4-5.0 BILI TOTAL 0.6 mg/dL 0.0-1.0 ALKALINE PHOSPHATASE TOTAL 90 IU/L 45- 117 MAGNESIUM - 09/20/16 06:00 MAGNESIUM 2.3 mg/dL 1.8-2.4 CBC - 09/24/16 06:00 MEAN CELL HGB 30.3 pg 27.0-33.0 MEAN CELL HGB CONCENTRATION 33.6 g/dL 32.0-37.0 MEAN CELL VOLUME 90.1 fl 80.0-100.0 RED BLOOD CELL 4.26 m/cumm 4.00-6.00 RED CELL DISTRIBUTION WIDTH 13.2 % 11.0- 15.6 WHITE BLOOD CELL 4.7 k/cumm 5.0-10.0 HEMOGLOBIN 12.9 gm/dL 12.0-16.0 HEMATOCRIT 38.4 % 37.0-47.0 PLATELET COUNT 236 k/cumm 150-400 [facility] - 09/[facility] 06:00 POTASSIUM 4.0 mmol/L 3.5-5.3 EST GFR (MDRD) 59 mL/min > 59 ANION GAP 10 mmol/L 5-15 GLUCOSE 99 mg/dL 70-99 CALCIUM 9.0 mg/dL 8.5-10.1 BLOOD UREA NITROGEN 22 mg/dL 7-20 CREATININE 0.9 mg/dL 0.6-1.0 SODIUM 143 mmol/L 135-148 CHLORIDE 111 mmol/L 98-110 AST/SGOT 29 Units/L 10-37 ALT/SGPT 32 Units/L < 66 CARBON DIOXIDE 22 mmol/L 21-32 TOTAL PROTEIN 7.2 gm/dL 6.4-8.2 ALBUMIN 3.1 gm/dL 3.4-5.0 BILI TOTAL 0.8 mg/dL 0.0-1.0 ALKALINE PHOSPHATASE TOTAL 130 IU/L 45- 117 MAGNESIUM - 09/24/16 06:00 MAGNESIUM 2.4 mg/dL 1.8-2.4 [facility] - 09/27/16 06:00 POTASSIUM 3.9 mmol/L 3.5-5.3 EST GFR (MDRD) 59 mL/min > 59 ANION GAP 9 mmol/L 5-15 GLUCOSE 87 mg/dL 70-99 CALCIUM 8.7 mg/dL 8.5-10.1 BLOOD UREA NITROGEN 24 mg/dL 7-20 CREATININE 0.9 mg/dL 0.6-1.0 SODIUM 146 mmol/L 135-148 CHLORIDE 114 mmol/L 98-110 AST/SGOT 23 Units/L 10-37 ALT/SGPT 30 Units/L < 66 CARBON DIOXIDE 23 mmol/L 21-32 TOTAL PROTEIN 6.5 gm/dL 6.4-8.2 ALBUMIN 2.9 gm/dL 3.4-5.0 BILI TOTAL 0.5 mg/dL 0.0-1.0 ALKALINE PHOSPHATASE TOTAL 115 IU/L 45- 117 MAGNESIUM - 09/27/16 06:00 MAGNESIUM 2.4 mg/dL 1.8-2.4 CBC - 09/27/16 06:00 MEAN CELL HGB 29.9 pg 27.0-33.0 MEAN CELL HGB CONCENTRATION 32.8 g/dL 32.0-37.0 MEAN CELL VOLUME 91.3 fl 80.0-100.0 RED BLOOD CELL 3.91 m/cumm 4.00-6.00 RED CELL DISTRIBUTION WIDTH 13.3 % 11.0- 15.6 WHITE BLOOD CELL 4.1 k/cumm 5.0-10.0 HEMOGLOBIN 11.7 gm/dL 12.0-16.0 HEMATOCRIT 35.7 % 37.0-47.0 PLATELET COUNT 229 k/cumm 150-400 ACTIVATED CLOTTING TIME - 09/28/16 11:07 ACTIVATED CLOTTING TIME 235 secs ACTIVATED CLOTTING TIME - 09/28/16 11:26 ACTIVATED CLOTTING TIME 212 secs ACTIVATED CLOTTING TIME - 09/28/16 11:45 ACTIVATED CLOTTING TIME 217 secs CBC - 09/29/16 04:54 MEAN CELL HGB 30.4 pg 27.0-33.0 MEAN CELL HGB CONCENTRATION 32.6 g/dL 32.0-37.0 MEAN CELL VOLUME 93.4 fl 80.0-100.0 RED BLOOD CELL 3.32 m/cumm 4.00-6.00 RED CELL DISTRIBUTION WIDTH 13.0 % 11.0- 15.6 WHITE BLOOD CELL 6.2 k/cumm 5.0-10.0 HEMOGLOBIN 10.1 gm/dL 12.0-16.0 HEMATOCRIT 31.0 % 37.0-47.0 PLATELET COUNT 194 k/cumm 150-400 RENAL FUNCTION PANEL - 09/29/16 04:54 POTASSIUM 4.3 mmol/L 3.5-5.3 EST GFR (MDRD) 52 mL/min > 59 ANION GAP 7 mmol/L 5-15 EST CrCl (CG) 29 mL/min > 59 GLUCOSE 121 mg/dL 70-99 CALCIUM 8.4 mg/dL 8.5-10.1 BLOOD UREA NITROGEN 21 mg/dL 7-20 CREATININE 1.0 mg/dL 0.6-1.0 SODIUM 142 mmol/L 135-148 CHLORIDE 111 mmol/L 98-110 CARBON DIOXIDE 24 mmol/L 21-32 ALBUMIN 2.5 gm/dL 3.4-5.0 PHOSPHORUS 3.8 mg/dL 2.5-4.9 GLUCOSE (POC) - 09/29/16 17:11 GLUCOSE (POC) 105 mg/dL 70-99 GLUCOSE (POC) - 09/29/16 20:19 GLUCOSE (POC) 116 mg/dL 70-99 [facility]16 21:48 POTASSIUM 4.0 mmol/L 3.5-5.3 EST GFR (MDRD) 47 mL/min > 59 ANION GAP 6 mmol/L 5-15 EST CrCl (CG) 27 mL/min > 59 GLUCOSE 132 mg/dL 70-99 CALCIUM 8.3 mg/dL 8.5-10.1 BLOOD UREA NITROGEN 22 mg/dL 7-20 CREATININE 1.1 mg/dL 0.6-1.0 SODIUM 145 mmol/L 135-148 CHLORIDE 113 mmol/L 98-110 AST/SGOT 35 Units/L 10-37 ALT/SGPT 24 Units/L < 66 CARBON DIOXIDE 26 mmol/L 21-32 TOTAL PROTEIN 5.9 gm/dL 6.4-8.2 ALBUMIN 2.9 gm/dL 3.4-5.0 BILI TOTAL 0.4 mg/dL 0.0-1.0 ALKALINE PHOSPHATASE TOTAL 112 IU/L 45- 117 CBC W/DIFF - 09/30/16 09:41 EOSINOPHIL # 0.1 k/cumm 0.1-0.5 EOSINOPHIL % 1 % 2-4 GRANULOCYTE # 4.0 k/cumm 2.0-9.0 GRANULOCYTE % 77 % 50-75 LYMPHOCYTE # 0.6 k/cumm 1.0-4.0 LYMPHOCYTE % 11 % 20-30 MEAN CELL HGB 30.4 pg 27.0-33.0 MEAN CELL HGB CONCENTRATION 32.9 g/dL 32.0-37.0 MEAN CELL VOLUME 92.5 fl 80.0-100.0 MONOCYTE # 0.5 k/cumm 0.1-1.0 MONOCYTE % 10 % 4-6 RED BLOOD CELL 3.35 m/cumm 4.00-6.00 RED CELL DISTRIBUTION WIDTH 13.4 % 11.0- 15.6 WHITE BLOOD CELL 5.3 k/cumm 5.0-10.0 HEMOGLOBIN 10.2 gm/dL 12.0-16.0 HEMATOCRIT 31.0 % 37.0-47.0 PLATELET COUNT 193 k/cumm 150-400 RENAL FUNCTION PANEL - 09/30/16 09:41 POTASSIUM 4.0 mmol/L 3.5-5.3 EST GFR (MDRD) 52 mL/min > 59 ANION GAP 7 mmol/L 5-15 EST CrCl (CG) 29 mL/min > 59 GLUCOSE 140 mg/dL 70-99 CALCIUM 8.3 mg/dL 8.5-10.1 BLOOD UREA NITROGEN 21 mg/dL 7-20 CREATININE 1.0 mg/dL 0.6-1.0 SODIUM 143 mmol/L 135-148 CHLORIDE 113 mmol/L 98-110 CARBON DIOXIDE 23 mmol/L 21-32 ALBUMIN 2.5 gm/dL 3.4-5.0 PHOSPHORUS 2.4 mg/dL 2.5-4.9 GLUCOSE (POC) - 09/30/16 11:48 GLUCOSE (POC) 113 mg/dL 70-99 GLUCOSE (POC) - 09/30/16 17:06 GLUCOSE (POC) 110 mg/dL 70-99 GLUCOSE (POC) - 09/30/16 20:23 GLUCOSE (POC) 147 mg/dL 70-99 GLUCOSE (POC) - 10/01/16 06:12 GLUCOSE (POC) 116 mg/dL 70-99 GLUCOSE (POC) - 10/01/16 11:51 GLUCOSE (POC) 116 mg/dL 70-99 GLUCOSE (POC) - 10/01/16 17:15 GLUCOSE (POC) 97 mg/dL 70-99 CBC - 10/03/16 06:00 MEAN CELL HGB 29.9 pg 27.0-33.0 MEAN CELL HGB CONCENTRATION 33.4 g/dL 32.0-37.0 MEAN CELL VOLUME 89.5 fl 80.0-100.0 RED BLOOD CELL 3.51 m/cumm 4.00-6.00 RED CELL DISTRIBUTION WIDTH 13.0 % 11.0- 15.6 WHITE BLOOD CELL 4.5 k/cumm 5.0-10.0 HEMOGLOBIN 10.5 gm/dL 12.0-16.0 HEMATOCRIT 31.4 % 37.0-47.0 PLATELET COUNT 200 k/cumm 150-400 METABOLIC PANEL, COMPREHN - 10/03/16 06:00 POTASSIUM 3.9 mmol/L 3.5-5.3 EST GFR (MDRD) < 10 mL/min > 59 ANION GAP 9 mmol/L 5-15 GLUCOSE 86 mg/dL 70-99 CALCIUM 9.6 mg/dL 8.5-10.1 BLOOD UREA NITROGEN 56 mg/dL 7-20 CREATININE 5.3 mg/dL 0.6-1.0 SODIUM 147 mmol/L 135-148 CHLORIDE 111 mmol/L 98-110 AST/SGOT 17 Units/L 10-37 ALT/SGPT 16 Units/L < 66 CARBON DIOXIDE 27 mmol/L 21-32 TOTAL PROTEIN 6.0 gm/dL 6.4-8.2 ALBUMIN 2.2 gm/dL 3.4-5.0 BILI TOTAL 0.4 mg/dL 0.0-1.0 ALKALINE PHOSPHATASE TOTAL 55 IU/L 45- 117 MAGNESIUM - 10/03/16 06:00 MAGNESIUM 1.8 mg/dL 1.8-2.4 B-TYPE NATRIURETIC PEPTIDE - 10/03/16 15:20 B-TYPE NATRIURETIC PEPTIDE 1171 pg/mL < 100 RENAL FUNCTION PANEL - 10/03/16 15:20 POTASSIUM 3.7 mmol/L 3.5-5.3 EST GFR (MDRD) 42 mL/min > 59 ANION GAP 8 mmol/L 5-15 GLUCOSE 109 mg/dL 70-99 CALCIUM 8.6 mg/dL 8.5-10.1 BLOOD UREA NITROGEN 18 mg/dL 7-20 CREATININE 1.2 mg/dL 0.6-1.0 SODIUM 138 mmol/L 135-148 CHLORIDE 106 mmol/L 98-110 CARBON DIOXIDE 24 mmol/L 21-32 ALBUMIN 3.0 gm/dL 3.4-5.0 PHOSPHORUS 3.0 mg/dL 2.5-4.9 URIC ACID - 10/03/16 15:20 URIC ACID 4.1 mg/dL 2.6-6.0 CREATINE KINASE (CK/CPK) - 10/03/16 15:20 CREATINE KINASE (CK/CPK) 121 Units/L < 193 URINALYSIS, ROUTINE - 10/03/16 18:12 UA LEUKOCYTE ESTERASE DIPSTICK NEGATIVE NEGATIVE UA NITRITE DIPSTICK NEGATIVE NEGATIVE UA PROTEIN DIPSTICK NEGATIVE NEGATIVE UA GLUCOSE DIPSTICK NEGATIVE NEGATIVE UA KETONE DIPSTICK TRACE NEGATIVE UA UROBILINOGEN DIPSTICK 3+ NORMAL UA BILIRUBIN DIPSTICK POSITIVE NEGATIVE UA BLOOD DIPSTICK NEGATIVE NEGATIVE UA SPECIFIC GRAVITY 1.021 1.015-1.025 UR PH 7.0 5.0-7.0 UR SODIUM - 10/03/16 18:12 UR SODIUM COMMENT RANDOM UR SODIUM LEVEL 103 mmol/L 20-40 UR CREATININE - 10/03/16 18:12 UR CREATININE COMMENT RANDOM UR CREATININE LEVEL 193.0 mg/dL 44-467 CBC - 10/04/16 06:00 MEAN CELL HGB 29.7 pg 27.0-33.0 MEAN CELL HGB CONCENTRATION 33.0 g/dL 32.0-37.0 MEAN CELL VOLUME 89.8 fl 80.0-100.0 RED BLOOD CELL 3.44 m/cumm 4.00-6.00 RED CELL DISTRIBUTION WIDTH 13.3 % 11.0- 15.6 WHITE BLOOD CELL 4.1 k/cumm 5.0-10.0 HEMOGLOBIN 10.2 gm/dL 12.0-16.0 HEMATOCRIT 30.9 % 37.0-47.0 PLATELET COUNT 222 k/cumm 150-400 METABOLIC PANEL, BASIC - 10/04/16 06:00 POTASSIUM 3.7 mmol/L 3.5-5.3 EST GFR (MDRD) 59 mL/min > 59 ANION GAP 9 mmol/L 5-15 GLUCOSE 105 mg/dL 70-99 CALCIUM 8.5 mg/dL 8.5-10.1 BLOOD UREA NITROGEN 18 mg/dL 7-20 CREATININE 0.9 mg/dL 0.6-1.0 SODIUM 145 mmol/L 135-148 CHLORIDE 112 mmol/L 98-110 CARBON DIOXIDE 24 mmol/L 21-32 MAGNESIUM - 10/04/16 06:00 MAGNESIUM 2.0 mg/dL 1.8-2.4 TOTAL T3 - 10/04/16 06:00 TOTAL T3 90 ng/dL 60-181 T4 (THYROXINE) - 10/04/16 06:00 T4 (THYROXINE) 21.4 mcg/dL 4.7-13.3 THYROID STIM HORMONE (TSH) - 10/04/16 06:00 THYROID STIM HORMONE (TSH) 0.01 uIU/mL 0.34-4.82 CBC - 10/08/16 06:00 MEAN CELL HGB 30.4 pg 27.0-33.0 MEAN CELL HGB CONCENTRATION 32.6 g/dL 32.0-37.0 MEAN CELL VOLUME 93.3 fl 80.0-100.0 RED BLOOD CELL 3.42 m/cumm 4.00-6.00 RED CELL DISTRIBUTION WIDTH 13.6 % 11.0- 15.6 WHITE BLOOD CELL 5.4 k/cumm 5.0-10.0 HEMOGLOBIN 10.4 gm/dL 12.0-16.0 HEMATOCRIT 31.9 % 37.0-47.0 PLATELET COUNT 238 k/cumm 150-400 METABOLIC PANEL, BASIC - 10/08/16 06:00 POTASSIUM 3.7 mmol/L 3.5-5.3 EST GFR (MDRD) 59 mL/min > 59 ANION GAP 9 mmol/L 5-15 GLUCOSE 102 mg/dL 70-99 CALCIUM 8.2 mg/dL 8.5-10.1 BLOOD UREA NITROGEN 24 mg/dL 7-20 CREATININE 0.9 mg/dL 0.6-1.0 SODIUM 146 mmol/L 135-148 CHLORIDE 114 mmol/L 98-110 CARBON DIOXIDE 23 mmol/L 21-32 MAGNESIUM - 10/08/16 06:00 MAGNESIUM 2.2 mg/dL 1.8-2.4 CBC - 10/11/16 06:00 MEAN CELL HGB 29.6 pg 27.0-33.0 MEAN CELL HGB CONCENTRATION 32.2 g/dL 32.0-37.0 MEAN CELL VOLUME 92.0 fl 80.0-100.0 RED BLOOD CELL 3.48 m/cumm 4.00-6.00 RED CELL DISTRIBUTION WIDTH 13.9 % 11.0- 15.6 WHITE BLOOD CELL 4.7 k/cumm 5.0-10.0 HEMOGLOBIN 10.3 gm/dL 12.0-16.0 HEMATOCRIT 32.0 % 37.0-47.0 PLATELET COUNT 241 k/cumm 150-400 METABOLIC PANEL, BASIC - 10/11/16 06:00 POTASSIUM 3.9 mmol/L 3.5-5.3 EST GFR (MDRD) 59 mL/min > 59 ANION GAP 8 mmol/L 5-15 GLUCOSE 100 mg/dL 70-99 CALCIUM 8.7 mg/dL 8.5-10.1 BLOOD UREA NITROGEN 22 mg/dL 7-20 CREATININE 0.9 mg/dL 0.6-1.0 SODIUM 145 mmol/L 135-148 CHLORIDE 115 mmol/L 98-110 CARBON DIOXIDE 22 mmol/L 21-32 MAGNESIUM - 10/11/16 06:00 MAGNESIUM 2.2 mg/dL 1.8-2.4 Encounters ACCT No. Visit Date/Time Discharge Status Pt. Type Provider Facility Loc./Unit Complaint [id number] 09/28/2016 08:39:00 2016 10:00:00 DIS Inpatient ABISAI PAYNE, KEANU [facility] W.3TS [id number] 09/10/2016 19:22:00 2016 17:28:00 DIS Inpatient Tatiana PAYNE, Kurtis [facility] W.10TN [id number] 10/03/2016 08:08:00 ACT Outpatient Mirlande JENKINS [facility] [id number] 09/12/2016 15:24:00 ACT Outpatient Tab PAYNE, Ziyad [facility]
--- OUTSIDE RECORDS SUMMARY | 2016-10-15 10:26 | XMS REPORT | Referral Summary ---
Author Author [facility] Organization [facility] Address Unknown Phone Unavailable Care Team Providers Care Intake Counselor Name Role Phone Barry Reyes Primary Care Physician [phone] Encounter VC Date(s): 09/14/15 - 09/14/15 [facility] [address] [place] [id number] Discharge Diagnosis: Impaired mobility and ADLs Discharge Diagnosis: Premature contractions, supraventricular Discharge Disposition: 01-Home or Self Care Attending Physician: Barry Reyes DO Admitting Physician: Barry Reyes DO Vital Signs Most recent to 1 oldest [Reference Range]: Temperature Tympanic 38 degC [36.6-38.1 degC] (09/14/15 2:31 PM) Peripheral Pulse 76 bpm Rate [60-100 bpm] (09/14/15 2:31 PM) Blood Pressure 148/82 mmHg [90-140/60-90 mmHg] *HI* (09/14/15 2:31 PM) Problem List No data available for this section Allergies, Adverse Reactions, Alerts Substance Reaction Severity Status morphine Active Medications Lasix 20 mg oral tablet 20 mg 1 tabs, Oral, Daily, # 30 tabs, 0 Refill(s), Pharmacy: [facility] [id number], 1 tabs Oral Daily Start Date: 09/14/15 Status: Ordered potassium chloride 10 mEq oral tablet, extended release 10 mEq 1 tabs, Oral, Daily, # 30 tabs, 0 Refill(s), Pharmacy: [facility] [id number], 1 tabs Oral Daily,x30 days Start Date: 09/14/15 Stop Date: 10/14/15 Status: Ordered Results Chemistry Most recent to 1 oldest [Reference Range]: Sodium Lvl [135-144 133 mEq/L mEq/L] *LOW* (09/14/15 3:52 PM) Potassium Lvl 4.1 mEq/L [3.5-5.2 mEq/L] (09/14/15 3:52 PM) Chloride [99-111 100 mEq/L mEq/L] (09/14/15 3:52 PM) CO2 [22-31 mEq/L] 24 mEq/L (09/14/15 3:52 PM) AGAP [3-20] 9 (09/14/15 3:52 PM) BUN [10-20 mg/dL] 17 mg/dL (09/14/15 3:52 PM) Glucose Lvl [70-99 106 mg/dL mg/dL] *HI* (09/14/15 3:52 PM) Creatinine Lvl 0.86 mg/dL [0.57-1.11 mg/dL] (09/14/15 3:52 PM) eGFR [>60 mL/min] >60 mL/min 1 (09/14/15 3:52 PM) Calcium Lvl 8.7 mg/dL [8.9-10.5 mg/dL] *LOW* (09/14/15 3:52 PM) Albumin Lvl [3.4-4.8 3.7 gm/dL gm/dL] (09/14/15 3:52 PM) Total Protein 7.0 gm/dL [6.2-8.1 gm/dL] (09/14/15 3:52 PM) Globulin [1.8-4.0 3.3 gm/dL gm/dL] (09/14/15 3:52 PM) ALT [0-55 U/L] 18 U/L (09/14/15 3:52 PM) AST [5-34 U/L] 21 U/L (09/14/15 3:52 PM) Alk Phos [40-150 95 U/L U/L] (09/14/15 3:52 PM) Bili Total [0.2-1.2 0.7 mg/dL mg/dL] (09/14/15 3:52 PM) BNP [0-99 pg/mL] 198 pg/mL *HI* (09/14/15 3:52 PM) T4 Free [0.7-1.5 1.0 ng/dL ng/dL] (3/9/16 3:52 PM) TSH with Reflex Free 5.43 T4 [0.35-4.94] *HI* (09/14/15 3:52 PM) 1Result Comment: Multiply eGFR results by 1.21 for race. Immunizations No data available for this section Procedures Procedure Date Related Diagnosis Body Site Cataract extraction and insertion of intraocular lens Social History Social History Type Response Smoking Status Never smoker Assessment and Plan Extracted from: Title: New patient, dependent Author: Barry Reyes DO Date: 09/14/15 edema, decreased ADLs Assessment/Plan Dependent edema 1. Recommended low-salt diet. 2. Was ordered today to assess her renal function as well as to rule out CHF. 3. Was started on Lasix 20 mg daily in addition to potassium 10 mEq daily. 4. Follow-up in one week for reevaluation, sooner if worsening symptoms. Ordered: B-Type Natriuretic Peptide Comprehensive Metabolic Panel Office Visit Level 5 Est 06813 TSH with Reflex Free T4 Impaired mobility and ADLs 1. Recommended home health evaluation. 2. I had a long discussion with the family members, given that she is disheveled and it appears that her is not able to help her with her ADLs , it may be time to look into whether she qualifies to be in an assisted living or long-term facility. The daughters will discuss this with the son who is the DPOA. 3. Over 50 minutes were spent [id number] with this patient and her family. Greater than 50 percent of the time was spent with counseling regarding the patient's care. Ordered: Office Visit Level 5 Est 42608 Premature contractions, supraventricular 1. EKG consistent with normal sinus rhythm with occasional supraventricular premature contraction. No signs of ischemia or recent cardiac consult. Ordered: Office Visit Level 5 Est 73387 Orders: furosemide, 20 mg 1 tabs, Oral, Daily, # 30 tabs, 0 Refill(s), Pharmacy: [facility] [id number], 1 tabs Oral Daily potassium chloride, 10 mEq 1 tabs, Oral, Daily, # 30 tabs, 0 Refill(s), Pharmacy: [facility] [id number], 1 tabs Oral Daily,x30 days
--- NOTE | 2016-10-15 10:45 | NUR ---
HANDOFF COMMUNICATION Report to Dr Becker and iMchelle who assume care. Reviewed history of present illness, recent past medical hx, injury symptoms today, pain and hypertension per assessment.
[2016-10-15] MEDS ORDERED: LEVO125T11 PO (10:54)
[2016-10-15] MEDS ORDERED: LUTE20TA PO (10:56)
[2016-10-15] MEDS ORDERED: AMIO200T2 PO (10:56)
[2016-10-15] MEDS ORDERED: DOCU-175 PO (10:56)
[2016-10-15] MEDS ORDERED: CLOP75TA33 PO (10:56)
--- NOTE | 2016-10-15 10:57 | ERPDOC ---
Departure Disposition Decision Date: Oct 15, 2016 Disposition Decision Time: 15:11 Disposition: 60 TO [facility] RE[facility] Impression Impression Impression: Primary Impression: Closed fracture of T11 vertebra Encounter type: initial encounter Fracture morphology: wedge compression Qualified Codes: S22.080A - Wedge compression fracture of t11-T12 vertebra, initial encounter for closed fracture Severity: Moderate Condition: Stable Seen By: Physician only Referrals: NIMISHA FLOREZ DO (Family) Problems/Meds/Labs Reviewed?: Yes Medications reviewed and manag: Yes Follow up care ordered?: Yes Mental Status: Alert, Oriented HPI - Fall/Injury General Chief Complaint: Fall Stated Complaint: FALL,BACK PAIN Time Seen by Provider: 10:55 HPI - Fall/Injury Allergies: Coded Allergies: morphine (Verified Adverse Reaction, Mild, VOMITS, 09/26/15) Past History Patient Surgical History Cataract repair Breast biopsybenign ("years ago") Past Medical History Metabolic: hypertension, hypothyroidism Vaccines Hx Influenza Vaccination: No (Refused 09/26/2015) Hx Pneumococcal Vaccination: No (Refused 09/26/2015) Social History Sexuality: male partner Physical Exam General Vitals and Pain First Documented Vital Signs Date Time Temp Pulse Resp B/P Pulse Ox O2 Delivery O2 Flow Rate FiO2 10/15/16 10:35 97.6 70 20 218/103 97 Room Air Weight: Kilograms: 56.900 Height (feet): 5 Height (inches): 3.00 Triage Pain Scale: Progress Results/Orders Orders Procedure Category Date Status Time Ct Head W/O Contrast CT 10/15/16 Resulted 10:55 Ct Lumbar Spine W/O CT 10/15/16 Resulted Contrast 10:55 Ct Thoracic Spine W/O CT 10/15/16 Resulted Contrast 10:55 Ketorolac (Toradol) PHA 10/15/16 Complete 12:00 Inpatient Rehab CONS 10/15/16 Transmitted Screening 12:47 Medications Current ED Medications Ketorolac Tromethamine (Toradol) 30 mg O ONCE IM Last administered on t 12:01; Start 10/15/16 at 12:00; Stop 10/15/16 at 12:01; Status DC DANIELLE BALLESTEROS MD Oct 15, 2016 10:57
[2016-10-15] MEDS ORDERED: METO-275 PO (10:59)
[2016-10-15] MEDS ORDERED: LISI-621 PO (10:59)
--- NOTE | 2016-10-15 11:06 | NUR ---
TO CT VIA CART
--- NOTE | 2016-10-15 11:25 | NUR ---
RETURNED FROM CT
--- OUTSIDE RECORDS SUMMARY | 2016-10-15 11:25 | XMS REPORT | Continuity of Care Document ---
Author Author [facility] Organization [facility] Address Unknown Phone Unavailable Allergies Active Description [...] LEFT N 09/28/2016 KEANU BARONE MD Z79.01 TEACHER DRAMATICS (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 OF ANTICOAGULANTS 09/28/2016 KEANU BARONE MD Z79.02 TEACHER DRAMATICS (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 OF ANTITHROMBOTICS/ ANTIPLA 09/28/2016 KEANU BARONE MD Z79.82 TEACHER DRAMATICS (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 OF ASPIRIN 09/28/2016 KEANU BARONE MD Z88.5 ALLERGY STATUS TO NARCOTIC AGENT STATUS Procedures Code Description Performed By Performed On [id number] EXTIRPATION OF MATTER FROM R INT CAROTID, OPEN KARISHMA KEANU BARONE MD 09/28/2016 [id number] SUPPLEMENT R INT CAROTID WITH NONAUT SUB, OPEN KARISHMA KEANU ABRONE MD 09/28/2016 Results Test Result Range CBC [...] PLATELET COUNT 235 k/cumm 150-400 [facility] - 09/13/16 06:00 POTASSIUM 3.5 mmol/L 3.5-5.3 [...] PLATELET COUNT 211 k/cumm 150-400 METABOLIC PANEL, [facility] - 09/17/16 06:00 POTASSIUM 4.1 mmol/L [...] PLATELET COUNT 236 k/cumm 150-400 [facility]OLIC PANEL, [facility] - 09/24/16 06:00 POTASSIUM 4.0 mmol/L 3.5-5.3 [...] 06:00 MAGNESIUM 2.4 mg/dL 1.8-2.4 METABOLIC PANEL, [facility] - 09/27/16 06:00 POTASSIUM 3.9 mmol/L 3.5-5.3 [...] GLUCOSE (POC) 116 mg/dL 70-99 METABOLIC PANEL, [facility] - 09/29/16 21:48 POTASSIUM 4.0 mmol/L 3.5-5.3 [...] Status Pt. Type Provider Facility Loc./Unit Complaint [id number] 09/28/2016 08:39:00 2016 10:00:00 DIS Inpatient ABISAI PAYNE, KEANU Palacio [facility] W.3TS [id number] 09/10/2016 19:22:00 2016 17:28:00 DIS Inpatient Tatiana PAYNE, Kurtis [facility] W.10TN [id number] 10/03/2016 08:08:00 ACT Outpatient Mirlande JENKINS [facility] [id number] 09/12/2016 15:24:00 ACT Outpatient Tab PAYNE, Ziyad Nina [facility]
--- NOTE | 2016-10-15 11:43 | DI ---
Indication: ITS.REASON: fall, question hit head PROCEDURE: CT HEAD W/O CONTRAST: Encounter: Initial Comparison: September 26, 2015 Technique: Axial CT images through the head were performed without contrast. Iterative Reconstruction dose reducing technique was utilized. FINDINGS: Mild generalized atrophy. The ventricles are unchanged. There is no evidence of acute intracranial hemorrhage, midline displacement, or mass effect. There are numerous areas of low attenuation in the white matter which most likely represent changes of chronic microvascular ischemia. Interval development of a chronic appearing infarct in the right frontal lobe with encephalomalacia. The CT attenuation of the brain parenchyma is otherwise normal within the cerebellum, brain stem, and cerebral hemispheres. The tympanic cavities and mastoid air cells are free of appreciable disease. There are no definite fractures of the skull base, calvarium, or visualized portion of the midface. IMPRESSION: No CT evidence of acute traumatic intracranial injury. .
--- NOTE | 2016-10-15 11:50 | DI ---
Indication: ITS.REASON: fall thoracic spine pain PROCEDURE: CT THORACIC SPINE W/O CONTRAST: Encounter: Initial Comparison: None: Technique: Axial noncontrast CT imaging of the thoracic spine was performed with coronal and sagittal two-dimensional reformats. Automated Exposure Control and Iterative Reconstruction dose reducing techniques were utilized. FINDINGS: Alignment of the thoracic spine is normal for the patient's age. There is chronic appearing mild biconcave wedging of the T9 vertebra with Schmorl's nodes. Additional smaller nodes are seen extending from T6 through T12 and into the lumbar spine. There is subtle irregularity of the superior endplate of T11. There is also some slight bulging of the anterior cortex best seen on sagittal image #30. No additional area concerning for acute fracture. There are age appropriate, degenerative changes within the intervertebral disk and facet joints in the thoracic spine. The vertebral bodies and facet joints are normally aligned. Small pleural effusions. IMPRESSION: Subtle changes at the T11 vertebra superior endplate suspicious for a nondisplaced acute fracture. Nuclear medicine bone scan or MRI could be performed for further evaluation. .
--- NOTE | 2016-10-15 11:52 | DI ---
Indication: ITS.REASON: fall lumbar spine pain PROCEDURE: CT LUMBAR SPINE W/O CONTRAST: Encounter: Initial Comparison: None Technique: Axial noncontrast CT imaging of the lumbar spine was performed with coronal and sagittal two-dimensional reformats. Automated Exposure Control and Iterative Reconstruction dose reducing techniques were utilized. FINDINGS: Bony demineralization. The alignment of the lumbar spine is normal for the patient's age. No fractures or traumatic subluxation of the lumbar spine is evident. The facet joints are well aligned with preservation of the intervertebral disk and facet joints. There are age appropriate degenerative changes within the intervertebral disks and facet joints in the lower lumbar region. There is no evidence of significant spinal stenosis, foraminal compromise, disk herniation, or epidural hematoma. Large calcified right uterine fibroid. IMPRESSION: No evidence for acute traumatic injury of the lumbar spine. .
[2016-10-15] MEDS ORDERED: KETOROLAC 30mg/ml INJECTION IM ONE (12:00)
--- NOTE | 2016-10-15 12:00 | NUR ---
BATHROOM ASSISTED PATIENT TO BEDSIDE COMMODE AT THIS TIME PATIENT TOLERATED WELL. SLIGHT PAIN GETTING OUT OF BED
--- NOTE | 2016-10-15 12:40 | NUR ---
AMBULATION PATIENT AMBULATES IN HALLWAY USING WALKER AND STANDBY ASSIST. TOLERATED WELL. REPORTS SLIGHT BACK PAIN WHEN GETTING OUT OF BED, BUT DENIES PAIN WITH AMBULATION. PATIENT REQUESTED TO SIT IN CHAIR AFTER ACTIVITY. FAMILY IN ROOM.
--- NOTE | 2016-10-15 13:05 | NUR ---
STATUS PATIENT CONTINUES TO SIT IN CHAIR. GIVEN CRACKER AND SPRITE.
--- NOTE | 2016-10-15 14:10 | NUR ---
REHAB NALLELY MICHEL IN ROOM TO SCREEN PATIENT FOR REHAB
--- OUTSIDE RECORDS SUMMARY | 2016-10-15 15:49 | XMS REPORT | Continuity of Care Document ---
Author Author [facility] Organization [facility] Address Unknown Phone Unavailable Allergies Active Description [...] LEFT N 09/28/2016 KEANU BARONE MD Z79.01 SPOOLER OPERATOR AUTOMATIC (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 OF ANTICOAGULANTS 09/28/2016 KEANU BARONE MD Z79.02 SPOOLER OPERATOR AUTOMATIC (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 OF ANTITHROMBOTICS/ ANTIPLA 09/28/2016 KEANU BARONE MD Z79.82 SPOOLER OPERATOR AUTOMATIC (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 OF ASPIRIN 09/28/2016 KEANU BARONE MD Z88.5 ALLERGY STATUS TO NARCOTIC AGENT STATUS Procedures Code Description Performed By Performed On [id number] EXTIRPATION OF MATTER FROM R INT CAROTID, OPEN KARISHMA KEANU BARONE MD 09/28/2016 [id number] SUPPLEMENT R INT CAROTID WITH NONAUT SUB, [...] PLATELET COUNT 235 k/cumm 150-400 [facility] - 09/13/16 06:00 POTASSIUM 3.5 mmol/L 3.5-5.3 [...] PLATELET COUNT 211 k/cumm 150-400 METABOLIC PANEL, [facility] - 09/17/16 06:00 POTASSIUM 4.1 mmol/L [...] PLATELET COUNT 236 k/cumm 150-400 [facility] PANEL, [facility] - 09/24/16 06:00 POTASSIUM 4.0 mmol/L 3.5-5.3 [...] 06:00 MAGNESIUM 2.4 mg/dL 1.8-2.4 [facility]OLIC PANEL, [facility] - 09/27/16 06:00 POTASSIUM 3.9 mmol/L 3.5-5.3 [...] GLUCOSE (POC) 116 mg/dL 70-99 [facility]OLIC PANEL, [facility] - 09/29/16 21:48 POTASSIUM 4.0 mmol/L 3.5-5.3 [...] Status Pt. Type Provider Facility Loc./Unit Complaint [id number] 09/28/2016 08:39:00 2016 10:00:00 DIS Inpatient ABISAI PAYNE, KEANU Palacio [facility] W.3TS [id number] 09/10/2016 19:22:00 2016 17:28:00 DIS Inpatient Tatiana PAYNE, Kurtis [facility] W.10TN [id number] 10/03/2016 08:08:00 ACT Outpatient Mirlande JENKINS [facility] [id number] 09/12/2016 15:24:00 ACT Outpatient Tab PAYNE, Ziyad Nina [facility]
[2016-10-15 16:55] VITALS: BP 157/71; PULSE 60; RESP 18; TEMP 97.6; O2SAT 95; Ht 160 cm; Wt 55.7 kg
--- NOTE | 2016-10-15 16:55 | NUR ---
DISMISS PATIENT TAKEN TO REHAB VIA WHEELCHAIR BY NALLELY NIEVES
--- NOTE | 2016-10-15 16:55 | NUR ---
ADMISSION NOTE PATIENT ALERT, ORIENTED X1, ARRIVED TO IRU FROM ER VIA WHEELCHAIR WITH DISTRICT MANAGER IN TRAINING AND FAMILY. TRANSFERRED TO BED FROM WHEELCHAIR WITH ONE ASSIST. WEIGHT TAKEN, PATIENT BELONGINGS- L HEARING AID, DENTURES, FULL UPPER, PARTIAL LOWER, HAIR BABIN. VITALS TAKEN STABLE, PATIENT DENIES PAIN.
--- NOTE | 2016-10-15 19:15 | NUR ---
DR CARDONA NOTIFIED OF PATIENT MED REC FORM AND ADMISSION.
[2016-10-15] MEDS ORDERED: PRN ORDERS MC (20:00)
[2016-10-15] MEDS ORDERED: ONDANSETRON 4 MG TABLET PO PRN (20:00)
[2016-10-15 20:43] VITALS: PULSE 62; RESP 16; O2SAT 97
[2016-10-15] MEDS: AMIODARONE 200 MG TABLET PO SCH (21:20)
[2016-10-15] MEDS: DOCUSATE SODIUM 100 MG CAPSULE PO SCH (21:20)
[2016-10-15 21:30] VITALS: BP 190/83; PULSE 64; RESP 14; TEMP 98.5; O2SAT 95
[2016-10-15 21:55] VITALS: BP 190/83; PULSE 64; RESP 14; TEMP 98.5; O2SAT 95
[2016-10-15 22:15] VITALS: BP 203/93; PULSE 68
[2016-10-15] MEDS: HYDROCODONE/APAP 5 mg/325 mg TABLET PO PRN (22:49)
--- NOTE | 2016-10-15 22:58 | NUR ---
BLOOD PRESSURE 2130 Pts bp was 190/83 pulse 64. 2215 Pts bp was 203/93 pulse 68. 2228 Current status reported via tiger text to Dr Atkinson. 2244 Dr Atkinson called and gave an order for her to be given one of the prn pain pills that were already ordered. 2248 Pt was given 1 [place] 5/325mg. Will continue to monitor.
[2016-10-15 23:45] VITALS: BP 136/72; PULSE 69
--- NOTE | 2016-10-15 23:45 | NUR ---
BP Blood pressure 136/72 pulse 69. Pt sleeping restfully.
[2016-10-16] MEDS: LEVOTHYROXINE 125 MCG TABLET PO SCH (02:42)
[2016-10-16] MEDS: HYDROCODONE/APAP 5 mg/325 mg TABLET PO PRN ×2 (02:43→20:31)
[2016-10-16 03:35] VITALS: PULSE 69; RESP 16
[2016-10-16 05:28] LABS: BASOPHILS % (AUTO) 0.2 % (0-2); EOSINOPHILS # (AUTO) 0.1 T/MM3 (0-0.5); EOSINOPHILS % (AUTO) 2.2 % (0-4); HCT - HEMATOCRIT 33.8 % (36-46); HGB - HEMOGLOBIN 10.8 GM/DL (12-16); IMMATURE GRANULOCYTE # (AUTO) 0.01 T/MM3 (0.00-0.03); IMMATURE GRANULOCYTE % (AUTO) 0.2 % (0.0-0.5); LYMPHOCYTES # (AUTO) 0.7 T/MM3 (1-4.8); LYMPHOCYTES % (AUTO) 15.9 % (23-45); MEAN CORPUSCULAR VOLUME 93.9 UM3 (80-100); MEAN PLATELET VOLUME 11.5 UM3 (9.4-12.4); MONOCYTES # (AUTO) 0.4 T/MM3 (0-0.8); MONOCYTES % (AUTO) 9.6 % (0-9.0); NEUTROPHILS #(AUTO)-ABSOLUTE 3.3 T/MM3 (1.8-7.7); NEUTROPHILS % (AUTO) 71.9 % (33-66); WBC - WHITE BLOOD COUNT 4.6 T/MM3 (4.5-11.0)
[2016-10-16 05:44] LABS: ANION GAP 8 MEQ/L (5-15); BUN/CREATININE RATIO 17 RATIO (6-26); CALCIUM 8.9 MG/DL (8.4-10.2); CHLORIDE 110 MEQ/L (98-107); CO2 - CARBON DIOXIDE 26 MEQ/L (22-30); CREATININE 1.1 MG/DL (0.7-1.2); GLOMERULAR FILTRATION RATE 47; GLUCOSE 100 MG/DL (65-110); POTASSIUM 3.7 MEQ/L (3.6-5); SODIUM 144 MEQ/L (134-144)
--- NOTE | 2016-10-16 05:50 | NUR ---
Summary Ramona is a pleasant and cooperative patient.She is alert and oriented to self.She has denied pain. She was medicated with norco again to keep pain manageable . Bilateral SCD's to lower extremities.She was incontinent of bladder with moderate assist for hygiene matter. Min assist with clothing management.
[2016-10-16 08:00] VITALS: BP 171/90; PULSE 63; RESP 14; TEMP 98.2; O2SAT 93
[2016-10-16] MEDS: LUTEIN 20 MG PO SCH (08:28)
[2016-10-16] MEDS: DOCUSATE SODIUM 100 MG CAPSULE PO SCH ×2 (08:28→20:30)
[2016-10-16] MEDS: AMIODARONE 200 MG TABLET PO SCH ×2 (08:29→20:30)
[2016-10-16] MEDS ORDERED: CLOPIDOGREL 75 MG TABLET PO SCH (09:00)
[2016-10-16] MEDS ORDERED: METOPROLOL XL 25 MG TABLET PO SCH (09:00)
[2016-10-16] MEDS ORDERED: DOCUSATE SODIUM 100 MG CAPSULE PO SCH (09:00)
[2016-10-16] MEDS ORDERED: LISINOPRIL 20 MG TABLET PO SCH (09:00)
--- NOTE | 2016-10-16 10:04 | NUR ---
Request for records. DIRECTOR OF CONSERVATION requested records from [facility]. Called and faxed request for records to both facilities.
--- NOTE | 2016-10-16 11:50 | CONSPD ---
DWAINE JULIEN V JOB ANALYSIS MANAGER 10/16/16 1132: Consultation Info Date DATE: 10/16/16 TIME: 11:11 Date of Consultation: Oct 16, 2016 Attending Physician: Yunior Reason for Consultation: Recent CVA, Fall with T-spine fracture HPI - Adult Date DATE: 10/16/16 TIME: 11:11 General Chief Complaint: Fall with T11 fracture History of Present Illness Ramona is a 86-year-old female who unfortunately suffered an ischemic stroke on . She was found to have significant carotid stenosis. At that time. From 09/12 until 09/28. She was at [facility] for ongoing strengthening and rehabilitation. 09/28/16 she underwent a scheduled right carotid endarterectomy under the care of Dr. Kendrick Elizabeth. Unfortunately following this procedure, she went into atrial fibrillation. Once stabilized. She returns to [facility] from 10/03 until October 13. She was discharged home with her on October 13 and had adult children residing with them. Morning she got up and fell and complained of significant back pain. She was then brought to [facility] emergency room for further evaluation and treatment. CT scan of the head was obtained showing no acute intracranial abnormalities or hemorrhage. CT of the lumbar spine did not reveal any acute fractures or trauma. CT of the thoracic spine did reveal a T11 vertebral superior endplate fracture. Given her significant pain and need for further therapy. She was accepted to the inpatient habilitation unit for ongoing pain management and improve strength. Ramona is seen this morning while eating breakfast. She is extremely hard of hearing and difficult to with. History is obtained from both and daughter. Documented follow up apt with Dr Reyes- on 11/12/16 [id number] 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 Carotid stenosis Dyslipidemia Hypertension Hypothyroidism Atrial fibrillation Macular degeneration During deficit Surgical History Patient's Surgical History: Right carotid endarterectomy- 09/28/16 (Dr Kendrick Elizabeth) Cataract repair Breast biopsybenign ("years ago") Current Medications Home Meds Reported Medications Metoprolol Succinate (Metoprolol Succinate) 25 Mg Tab.er.24h, 25 MG PO DAILY 10/15/16 Lisinopril (Lisinopril) 20 Mg Tablet, 20 MG PO DAILY 10/15/16 Clopidogrel Bisulfate (Clopidogrel) 75 Mg Tablet, 75 MG PO DAILY 10/15/16 Docusate Sodium (Docusate Sodium) 100 Mg Capsule, 100 MG PO DAILY 10/15/16 Lutein (Lutein) 20 Mg Tablet, 20 MG PO DAILY 10/15/16 Amiodarone HCl (Amiodarone HCl) 200 Mg Tablet, 200 MG PO BID 10/15/16 Levothyroxine Sodium (Levothyroxine Sodium) 125 Mcg Tablet, 125 MCG PO ACB 10/15/16 Allergies: Coded Allergies: morphine (Verified Adverse Reaction, Mild, VOMITS, 09/26/15) Family History Family History: Father- at age 92 of old age. Mother-enlarged heart Siblings with diabetes, pancreatic cancer, breast cancer, Alzheimer's Daughter with diabetes Social History Smoking Status: Never smoker Sexuality: male partner Advance Directives: Yes DPOA for Healthcare Only (copy on chart), Yes Full Code Social History Comments PCP Dr Reyes- Reported apt made for 11/12/16 [id number] Physical Exam General General Nourishment: well nourished, well developed Vital Signs Vital Signs Date Time Temp Pulse Resp B/P Pulse Ox O2 Delivery O2 Flow Rate FiO2 10/16/16 08:00 63 14 10/16/16 08:00 98.2 171/90 93 Room Air Height (Feet): 5 Height (Inches): 3.00 Eyes Brief: FOUND: EOMI, PERRL Respiratory Brief: FOUND: clear all guzman, equal bilaterally, NOT FOUND: wheezes Cardiovascular (brief) Cardiac Brief: FOUND: regular rate, regular rhythm, NOT FOUND: murmur, pedal edema Abdomen (brief) Abdominal Brief: FOUND: BS normo active x4, soft, NOT FOUND: distended, tender Integumentary (brief) Integumentary Brief: FOUND: dry, pink, warm Neurologic (brief) Neurological Brief: FOUND: cranial 2-12 intact Neurologic RN Documented GCS Eye Opening: Verbal: Motor: Total: Psychiatric (brief) FOUND: alert, attentive, normal affect, oriented Laboratory Laboratory Tests Test 10/16/16 04:26 White Blood Count 4.6T/MM3 Red Blood Count 3.60M/MM3 Hemoglobin 10.8GM/DL Hematocrit 33.8% Mean Corpuscular Volume 93.9UM3 Mean Corpuscular Hemoglobin 30.0UUG Mean Corpuscular Hemoglobin Concent 32.0GM/DL RDW Standard Deviation 45.2FL Platelet Count 219T/MM3 Mean Platelet Volume 11.5UM3 Immature Granulocyte % (Auto) 0.2% Neutrophils (%) (Auto) 71.9% Lymphocytes (%) (Auto) 15.9% Monocytes (%) (Auto) 9.6% Eosinophils (%) (Auto) 2.2% Basophils (%) (Auto) 0.2% Absolute Immature Granulocyte (auto 0.01T/MM3 Absolute Neutrophils (auto) 3.3T/MM3 Absolute Lymphocytes (auto) 0.7T/MM3 Absolute Monocytes (auto) 0.4T/MM3 Absolute Eosinophils (auto) 0.1T/MM3 Absolute Basophils (auto) 0.0T/MM3 Turbidity < 20 Sodium Level 144MEQ/L Potassium Level 3.7MEQ/L Chloride Level 110MEQ/L Carbon Dioxide Level 26MEQ/L Anion Gap 8MEQ/L Blood Urea Nitrogen 19.0MG/DL Creatinine 1.1MG/DL Glomerular Filtration Rate Calc 47 BUN/Creatinine Ratio 17RATIO Glucose Level 100MG/DL Calculated Osmolality 279MOSM/KG Calcium Level 8.9MG/DL Icterus Index < 2 Chemistry Specimen Hemolysis < 15 Impression/Recommendation Problems: (1) Closed fracture of T11 vertebra Status: Acute Qualifiers: Encounter type: initial encounter Fracture morphology: wedge compression Qualified Codes: S22.080A - Wedge compression fracture of t11-T12 vertebra, initial encounter for closed fracture (2) History of CVA (cerebrovascular accident) Status: Chronic Assessment & Plan: On 09/10/16 (3) Status post carotid endarterectomy Status: Chronic Assessment & Plan: 09/28/16- Dr Elizabeth (4) Dyslipidemia Status: Chronic (5) HTN (hypertension) Status: Chronic (6) Hypothyroidism Status: Chronic (7) Macular degeneration Status: Chronic (8) History of cataract Status: Resolved Recommendation Agree with admission to IRU for ongoing therapy and back pain control. Requested medical records from [place] of acute stay including endarterectomy and follow-up care. Will contact 's office today to verify that patient should be on Plavix and aspirin. Current med list only shows Plavix. Also supposed to be on Zocor for dyslipidemia. In regards to recent CVA. Will continue this at 20 milligrams daily. Did a kary switched to Toprol tartrate 25 milligrams twice a day and lisinopril 20 milligrams daily. Blood pressures mildly elevated today. Will continue to monitor carefully. Continue amiodarone 200 milligrams twice a day. Did review advanced directives and patient started does verify that patient would like to be a full code, orders written Hospital services will continue to follow patient medically manage assisting comorbidities Patient is scheduled to follow-up with Dr. Reyes her primary care provider on November 12 at 1330. JOSÉ MIGUEL HINES MD 10/16/16 1846: Past Medical History Current Medications Home Meds Reported Medications Metoprolol Succinate (Metoprolol Succinate) 25 Mg Tab.er.24h, 25 MG PO DAILY 10/15/16 Lisinopril (Lisinopril) 20 Mg Tablet, 20 MG PO DAILY 10/15/16 Clopidogrel Bisulfate (Clopidogrel) 75 Mg Tablet, 75 MG PO DAILY 10/15/16 Docusate Sodium (Docusate Sodium) 100 Mg Capsule, 100 MG PO DAILY 10/15/16 Lutein (Lutein) 20 Mg Tablet, 20 MG PO DAILY 10/15/16 Amiodarone HCl (Amiodarone HCl) 200 Mg Tablet, 200 MG PO BID 10/15/16 Levothyroxine Sodium (Levothyroxine Sodium) 125 Mcg Tablet, 125 MCG PO ACB 10/15/16 Allergies: Coded Allergies: morphine (Verified Adverse Reaction, Mild, VOMITS, 09/26/15) Impression/Recommendation Problems: (1) Closed fracture of T11 vertebra Status: Acute Qualifiers: Encounter type: initial encounter Fracture morphology: wedge compression Qualified Codes: S22.080A - Wedge compression fracture of t11-T12 vertebra, initial encounter for closed fracture (2) History of CVA (cerebrovascular accident) Status: Chronic Assessment & Plan: On 09/10/16 (3) Status post carotid endarterectomy Status: Chronic Assessment & Plan: 09/28/16- Dr Elizabeth (4) Dyslipidemia Status: Chronic (5) HTN (hypertension) Status: Chronic (6) Hypothyroidism Status: Chronic (7) Macular degeneration Status: Chronic (8) History of cataract Status: Resolved Recommendation Have independently interviewed and examined pt. Chart reviewed. Case discussed with my JOB ANALYSIS MANAGER. Above care plan developed with my supervision; agree with above. Doing okay today. Back pain varies. Breathing well. Not feeling SOA or congestion. No chest pressure or pain. No nausea or ab discomfort. Lungs: clear CV: regular AB: soft nt/nd MSE: awake alert Plan: Agree with admission to IRU to maximize functional status. Will add Miacalcin and Ca with Vit D to help fracture pain. Monitor for confusion and constipation with [place]. Encourage therapy. Medically stable for IRU floor activities. DWAINE JULIEN APRN Oct 16, 2016 11:32 JOSÉ MIGUEL HINES MD Oct 16, 2016 18:46
--- NOTE | 2016-10-16 14:10 | HPPDOC ---
HPI Date DATE: 10/16/16 TIME: 14:04 General Chief Complaint: Fall with T11 fracture History of Present Illness 86 yo female with new onset T11 vertebral fracture after a fall at home. Pt has had a month of sig health issues starting in early september with CVA. She was hospitalized from 09/10 to 09/28 in Rehab from the stroke. Then had CEA performed for right carotid occlusion. She then was readmitted with new onset Afib post op and was not discharged until 10/13. She was home less than 48 hours prior to breaking T11 in fall. She is unable to manage pain and cannot provide her own ADL's due to pain. 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 Carotid stenosis Dyslipidemia Hypertension Hypothyroidism Atrial fibrillation Macular degeneration During deficit Surgical History Patient's Surgical History: Right carotid endarterectomy- 09/28/16 (Dr Kendrick Elizabeth) Cataract repair Breast biopsybenign ("years ago") Current Medications Home Meds Reported Medications Metoprolol Succinate (Metoprolol Succinate) 25 Mg Tab.er.24h, 25 MG PO DAILY 10/15/16 Lisinopril (Lisinopril) 20 Mg Tablet, 20 MG PO DAILY 10/15/16 Clopidogrel Bisulfate (Clopidogrel) 75 Mg Tablet, 75 MG PO DAILY 10/15/16 Docusate Sodium (Docusate Sodium) 100 Mg Capsule, 100 MG PO DAILY 10/15/16 Lutein (Lutein) 20 Mg Tablet, 20 MG PO DAILY 10/15/16 Amiodarone HCl (Amiodarone HCl) 200 Mg Tablet, 200 MG PO BID 10/15/16 Levothyroxine Sodium (Levothyroxine Sodium) 125 Mcg Tablet, 125 MCG PO ACB 10/15/16 Allergies: Coded Allergies: morphine (Verified Adverse Reaction, Mild, VOMITS, 09/26/15) Family History Family History: Father- at age 92 of old age. Mother-enlarged heart Siblings with diabetes, pancreatic cancer, breast cancer, Alzheimer's Daughter with diabetes Social History Smoking Status: Never smoker Sexuality: male partner Advance Directives: Yes DPOA for Healthcare Only (copy on chart), Yes Full Code Review of Systems Cardiovascular see HPI Rhythm/Rate: see HPI Musculoskeletal General: atrophy of muscles, cramps, pain, weakness Lumbar: see HPI Neurological General: see HPI All Other Systems All Other Systems: Reviewed Physical Exam General General Nourishment: thin General Body Habitus: well groomed Vital Signs Vital Signs Date Time Temp Pulse Resp B/P Pulse Ox O2 Delivery O2 Flow Rate FiO2 10/16/16 08:00 63 14 10/16/16 08:00 98.2 171/90 93 Room Air Height (Feet): 5 Height (Inches): 3.00 Eyes Brief: FOUND: EOMI, PERRL ENMT Brief: FOUND: TM clear, TM good light reflex, ear canals clear Respiratory Brief: FOUND: clear all guzman, equal bilaterally, NOT FOUND: rales , wheezes Cardiovascular (brief) Cardiac Brief: FOUND: regular rate, regular rhythm Abdomen (brief) Abdominal Brief: FOUND: BS normo active x4, soft, tender Musculoskeletal (brief) Musculoskeletal Brief: FOUND: spasm, tenderness Comments Lower thoracic tender spinal palp. Neurologic (brief) Neurological Brief: FOUND: cranial 2-12 intact Neurologic RN Documented GCS Eye Opening: Verbal: Motor: Total: Laboratory Laboratory Tests Test 10/16/16 04:26 White Blood Count 4.6T/MM3 Red Blood Count 3.60M/MM3 Hemoglobin 10.8GM/DL Hematocrit 33.8% Mean Corpuscular Volume 93.9UM3 Mean Corpuscular Hemoglobin 30.0UUG Mean Corpuscular Hemoglobin Concent 32.0GM/DL RDW Standard Deviation 45.2FL Platelet Count 219T/MM3 Mean Platelet Volume 11.5UM3 Immature Granulocyte % (Auto) 0.2% Neutrophils (%) (Auto) 71.9% Lymphocytes (%) (Auto) 15.9% Monocytes (%) (Auto) 9.6% Eosinophils (%) (Auto) 2.2% Basophils (%) (Auto) 0.2% Absolute Immature Granulocyte (auto 0.01T/MM3 Absolute Neutrophils (auto) 3.3T/MM3 Absolute Lymphocytes (auto) 0.7T/MM3 Absolute Monocytes (auto) 0.4T/MM3 Absolute Eosinophils (auto) 0.1T/MM3 Absolute Basophils (auto) 0.0T/MM3 Turbidity < 20 Sodium Level 144MEQ/L Potassium Level 3.7MEQ/L Chloride Level 110MEQ/L Carbon Dioxide Level 26MEQ/L Anion Gap 8MEQ/L Blood Urea Nitrogen 19.0MG/DL Creatinine 1.1MG/DL Glomerular Filtration Rate Calc 47 BUN/Creatinine Ratio 17RATIO Glucose Level 100MG/DL Calculated Osmolality 279MOSM/KG Calcium Level 8.9MG/DL Icterus Index < 2 Chemistry Specimen Hemolysis < 15 Assessment & Plan Problems: (1) Closed fracture of T11 vertebra Status: Acute Qualifiers: Encounter type: initial encounter Fracture morphology: wedge compression Qualified Codes: S22.080A - Wedge compression fracture of t11-T12 vertebra, initial encounter for closed fracture Assessment & Plan: Physical therapy and occupational therapy to evaluate patient to develop plan of care. 3 hour daily minimum of exercise. Will work with patient on pain management as needed. (2) Falls Status: Acute Assessment & Plan: Physical therapy and occupational therapy to work with patient on safety issues. (3) Self-care deficit for hygiene Status: Acute Assessment & Plan: Occupational therapy to work with patient. (4) Orthostatic hypotension Status: Resolved Assessment & Plan: Medical to manage Code Status Full Code Interventions to Obtain Goals PT Treatment Plan: Therapeutic Exercise, Gait Training, Functional Activities , Patient/Family Education, Balance/Proprioception OT Treatment Plan: ADL's (basic care), Ther. Exercise for ADL's, Balance Training, Pt./Family Education, IADL's Hospital Course Summary Disclaimer The hospital course summary below is not to be considered part of the above Progress Note. EKTA CARDONA MD Oct 16, 2016 14:08
--- NOTE | 2016-10-16 14:25 | IRU24PDOC ---
24 Hour Post Admission Eval Relevant Changes Relevant Changes: No I have reviewed the patient's information and concur with the finding and results of the pre-admission screen. Certification I certify the patient for rehabilitation. Patient Condition Prior Medical Conditions: (1) Closed fracture of T11 vertebra Status: Acute Additional Information: Physical therapy and occupational therapy to evaluate patient to develop plan of care. 3 hour daily minimum of exercise. Will work with patient on pain management as needed. (2) Falls Status: Acute Additional Information: Physical therapy and occupational therapy to work with patient on safety issues. (3) Self-care deficit for hygiene Status: Acute Additional Information: Occupational therapy to work with patient. (4) Orthostatic hypotension Status: Resolved Additional Information: Medical to manage Current Medical Conditions: (1) Closed fracture of T11 vertebra Status: Acute Additional Information: Physical therapy and occupational therapy to evaluate patient to develop plan of care. 3 hour daily minimum of exercise. Will work with patient on pain management as needed. (2) Falls Status: Acute Additional Information: Physical therapy and occupational therapy to work with patient on safety issues. (3) Self-care deficit for hygiene Status: Acute Additional Information: Occupational therapy to work with patient. (4) Orthostatic hypotension Status: Resolved Additional Information: Medical to manage Prior Functional Condition Lives With: Spouse Residence Type: Private home/apartment Assistive Devices: Front Wheeled Walker Prior Functional Status: Indep. at home or school Current Functional Status Failed Alternative Therapy Tri: Arrived from acute care Patient Requirements * Patient has been determined to have significant functional limitations requiring at least two therapy disciplines. * Rehabilitation medical practitioner will provide admission approval, assessment and oversight and program coordination at least daily. * Intensive rehabilitative nursing services on site and available 24 hours a day. * The treatment plan will be developed within 24 hours of admission. * Interdisciplinary and goal oriented treatment by professional nursing, school social worker, and rehabilitation therapist. * Interdisciplinary team meeting weekly inclusive of ongoing comprehensive discharge planning. First team meeting by day seven. Weekly meetings to follow. * Rehab Physician is the team meeting leader. * Pharmacy and diagnostic services will be available. * Ongoing comprehensive rehab program with at least 2 disciplines and greater than or equal to 3 hours a day, 5 days a week. Limitations require: limited mobility, ADL impairment Physical Therapy Minutes: 90 Occupational Therapy Minutes: 90 Therapy The patient is to receive therapy at least 5 days a week. Current Functional Status: Using assistive device PT Treatment Plan: Therapeutic Exercise, Gait Training, Functional Activities , Patient/Family Education, Balance/Proprioception Treatment Plan Frequency: five times per week Treatment Plan Duration: two weeks Plan of Care Comment: 6x/week x 1 week, then 5x/week x 2 weeks OT Treatment Plan: ADL's (basic care), Ther. Exercise for ADL's, Balance Training, Pt./Family Education, IADL's OT Treatment Plan Frequency: five times per week OT Treatment Plan Duration: three weeks ROM Comment: B/L LE WNL See OT for UEs. Muscle Weakness Location: Left Lower Extremity, Right Lower Extremity Complication/Comorbidities Patient Complication Risk: (1) Closed fracture of T11 vertebra Status: Acute Comments: Physical therapy and occupational therapy to evaluate patient to develop plan of care. 3 hour daily minimum of exercise. Will work with patient on pain management as needed. (2) Falls Status: Acute Comments: Physical therapy and occupational therapy to work with patient on safety issues. (3) Self-care deficit for hygiene Status: Acute Comments: Occupational therapy to work with patient. (4) Orthostatic hypotension Status: Resolved Comments: Medical to manage Impact on Functional Outcomes [facility] recovery is possible, will require chronic effort due to number of medical insults sufferred recently. Barriers to Discharge: weakness, endurance, pain control Plan to Avoid Complications Plan to Avoid Complications The patient cannot receive this care in a lesser intensive setting such as Residential or Outpatient Therapy due to the patient requiring the following []. The patient requires oversight by a rehabilitation physician to manage their rehabilitation treatment plan and the multidisciplinary approach to care that can only be provided in an IRF and requires a multidisciplinary approach to care , provided by professional PTs, OTs, STs, dieticians, RTs, rehabilitation nurses and is not available in lesser levels of care. The frequency and duration for therapy, as recommended by the professional Rehabilitation therapists, meet the patient's initial rehabilitation treatment plan needs and will be further evaluated on a weekly basis for progress and/or changes needed. Problem Qualifiers (1) Closed fracture of T11 vertebra: Encounter type: initial encounter Fracture morphology: wedge compression Qualified Codes: S22.080A - Wedge compression fracture of t11-T12 vertebra, initial encounter for closed fracture EKTA CARDONA MD Oct 16, 2016 14:25
[2016-10-16 16:22] VITALS: BP 162/80; PULSE 57; RESP 16; TEMP 97.9; O2SAT 98
--- NOTE | 2016-10-16 16:33 | NUR ---
CM THIS WORKER VISITED PT IN ROOM, SPOKE WITH -JOSSY. JOSSY STATED D/C PLAN IS FOR PT TO RETURN HOME IN [place]. JOSSY STATED FAMILY WAS LOOKING AT HOME HEALTH AND TO SPEAK WITH DAUGHTER-AMANDA. JOSSY GAVE PERMISSION FOR THIS WORKER TO CONTACT AMANDA. JOSSY STATED PT HAS A WALKER, WHEELCHAIR, AND SHOWER CHAIR AT HOME. FAMILY WAS GIVEN THIS WORKER'S CONTACT INFORMATION AND ENCOURAGED TO CALL WITH ANY QUESTIONS/NEEDS. Addendum: 10/16/16 at 1641 by VANIA MELÉNDEZ Amended: Links added.
--- NOTE | 2016-10-16 16:43 | NUR ---
LASHANDA MASTERS SCORE IS 8. Addendum: 10/16/16 at 1644 by VANIA MELÉNDEZ Amended: Links added.
--- NOTE | 2016-10-16 16:48 | NUR ---
Call placed to Dr. Elizabeth's office [phone] at 1153 today. Requesting clarification of anticoagulation recommendation for Hospitalist. Call returned recommendation received via [place] with Dr. Elizabeth's office to discontinue Plavix and continue Aspirin 325mg indefinitely. Recommendation relayed to Nayana Gasca APRN. Verbal order given to dc Plavix and start Aspirin 325mg po daily.
--- NOTE | 2016-10-16 18:37 | NUR ---
Shift Summary Patient alert to herself. Unsure of place or date. Patient in room this shift. Patient denies pain. Nauseated at noon with some emesis, but refused Zofran. Ate supper tonight, no further complaints of nausea. Patient continent of bladder. Wears pull ups. Hard of hearing, wears hearing aid. Transfers with min assist. Ambulating with FWW, gait belt, min assist. Patient wanting to go home with before supper, redirected.
[2016-10-16] MEDS: CALCITONIN NASAL SPRAY 200 UNITS NAS SCH (19:22)
[2016-10-16 19:30] VITALS: BP 201/96; PULSE 60
[2016-10-16 20:25] VITALS: BP 201/96; PULSE 60; RESP 20; TEMP 97.8; O2SAT 99
[2016-10-16] MEDS: CALCIUM 600mg + VIT D 400 TABLET PO SCH (20:30)
[2016-10-16] MEDS: SIMVASTATIN 20 MG TABLET PO SCH (20:30)
[2016-10-16 21:25] VITALS: BP 175/98; PULSE 58
[2016-10-17 02:21] VITALS: PULSE 60; RESP 20
[2016-10-17] MEDS: LEVOTHYROXINE 125 MCG TABLET PO SCH (05:05)
--- NOTE | 2016-10-17 06:47 | NUR ---
Summary Ramona is pleasant and cooperative with cares.She is alert and oriented to self.Her spent the night with her in her room.When in her bed side rails are up x two and bedalarms are intact.She was medicated with [place] 5 once due to an elevated blood pressure.See Emar.She denies pain but will grimace if she moves just "right."She has slept well.She ambulates with fww gb and contact guard.Gait is steady.She is continent of bladder and able to do her hygiene and clothing management
[2016-10-17 08:00] VITALS: BP 190/85; PULSE 53; RESP 16; TEMP 98.1; O2SAT 97
[2016-10-17] MEDS: AMIODARONE 200 MG TABLET PO SCH ×2 (08:29→20:16)
[2016-10-17] MEDS: CALCITONIN NASAL SPRAY 200 UNITS NAS SCH (08:29)
[2016-10-17] MEDS: LUTEIN 20 MG PO SCH (08:29)
[2016-10-17] MEDS: ASPIRIN 325 MG TABLET PO SCH (08:29)
[2016-10-17] MEDS: DOCUSATE SODIUM 100 MG CAPSULE PO SCH ×2 (08:29→20:15)
[2016-10-17] MEDS: LISINOPRIL 40 MG TABLET PO SCH (08:29)
[2016-10-17] MEDS: CALCIUM 600mg + VIT D 400 TABLET PO SCH ×2 (08:29→20:15)
--- NOTE | 2016-10-17 10:00 | NUR ---
Status Pt. is present at breakfast and is sitting with pt. Upon administering pt.'s morning meds, reports and asks if pt. is having surgery today. Notified that this RN did not receive any report about any upcoming surgery for the pt. He is resistant to allowing this RN to given pt. morning meds and appears agitated. He reports he wants this RN speaks with the charge nurse and finds out some more information. Notified charge nurse, Jaqui Boone. This RN notified that pt. has already had surgery and is here at the hospital to participate in therapy. Jaqui, RN, also spoke with in attempts to orient him and calm him down. was informed about unit routine and ended up having to be asked to wait in pt.'s room. He did calm down shortly after. Lamont (case monitor) and Elizabet (nurse sales manager [place]) also notified of situation. Lamotn informed this RN that she did talk to pt.'s daughter, Yareli as well. Will continue to monitor.
--- NOTE | 2016-10-17 11:00 | NUR ---
BM It was reported that pt.'s last BM is unknown. Upon assessment, pt. reports she believes her last BM was yesterday. BS are noted to be active x4 and abdomen is noted to be soft and non-tender. Pt. reports she has no trouble with her bowels. Scheduled stool softeners given this morning. Please see eMAR. Pt. denies the need for anything else. Will continue to monitor.
[2016-10-17 11:18] VITALS: PULSE 53; RESP 16
[2016-10-17 11:29] VITALS: BP 145/84
--- NOTE | 2016-10-17 14:27 | NUR ---
CM RECEIVED CALL FROM THE UNIT, WITH THE FOLLOWING CONCERNS RELAYED: PT'S APPEARS TO BE INTERFERING WITH PT'S REHAB TREATMENT (I.E. ENCOURAGING PT TO GET UP ON HER OWN INSTEAD OF WAITING FOR STAFF) AND HE IS SAYING UNKIND STATEMENTS TO STAFF. THIS WORKER STOPPED BY PT'S ROOM, AND HER DAUGHTER IN LAW, ARACELIS, WAS PRESENT, ALONG WITH . THIS WORKER THEN STEPPED OUT OF THE ROOM AND SPOKE AT LENGTH WITH ARACELIS. RELAYED THE UNIT'S CONCERNS OF SPOUSE INTERFERING WITH PT'S TREATMENT AND EXPLAINED HE SHOULD PROBABLY NOT BE HERE ALONE ANYMORE. SHE SAID SHE UNDERSTOOD AND THAT HER WILL TAKE HIM HOME. DISCUSSED DC PLANNING ALSO. SHE SAID PT (AND POSSIBLY SPOUSE) MIGHT NEED PLACEMENT OF SOME SORT. SHE SAID THEY WERE TRYING TO GET IN HOME HELP THROUGH [facility], BUT WERE NOT ABLE TO FOLLOW UP WITH THIS BECAUSE PT WAS HOSPITALIZED. SHE SAID FINANCIALLY, THOUGH, THEY PROBABLY COULD NOT AFFORD THIS OPTION. DISCUSSED OTHER OPTIONS SUCH SNU, ASSISTED LIVING, OR PENITENTIARY CARE. PT DOES NOT HAVE MEDICAID AND DOES NOT HAVE A PENITENTIARY CARE INSURANCE POLICY. SHE AND SPOUSE EARN ABOUT $700 PER MONTH. THEY HAVE ASSETS (LAND, RENTAL HOMES). THIS WORKER DISCUSSED POSSIBILITY OF FINDING PLACEMENT AT A FACILITY THAT ACCEPTS MEDICAID PENDING, AND THEN PT WOULD NEED TO BE APPLIED FOR MEDICAID. THIS WORKER ENCOURAGED HER TO DISCUSS ALL OF THIS WITH THE FAMILY (SHE SAID THERE ARE 2 OTHER CHILDREN, AMANDA AND PEG, WHO NEED TO BE INVOLVED), AND THEN WE CAN HAVE A MEETING (TELECONFERENCE, SINCE PEG IS OUT OF STATE) TO DISCUSS THINGS FURTHER. SHE SAID OK. THIS WORKER PROVIDED HER WITH THIS WORKER'S CONTACT INFO. LATER, THIS WORKER SPOKE WITH FOSTER WITH [facility], WHO WAS IN BUILDING. ARACELIS WAS AGREEABLE TO SPEAKING TO HIM ABOUT POSSIBLE PLACEMENT THERE. THIS WORKER WILL FOLLOW UP WITH DC PLANNING.
[2016-10-17 16:28] VITALS: BP 169/77; PULSE 52; RESP 16; TEMP 96.5; O2SAT 96
--- NOTE | 2016-10-17 16:43 | NUR ---
CM CONFERENCE CALL WITH RODRIGUEZ, HER , AND WITH GOPI VIA SPEAKER PHONE. DISCUSSED DC PLANNING, AND FAMILY AGREED THAT PT WILL PROBABLY NEED [facility] CARE. THEY ASKED THAT THIS WORKER CHECK WITH: REGEANTS IN [place], [facility], AND [facility]. THIS WORKER DISCUSSED THAT MEDICAID WILL BE NEEDED, AND THEY WERE AGREEABLE TO FOLLOWING UP WITH THIS. THIS WORKER ALSO REVIEWED THAT A CARE ASSESSMENT WILL BE REQUESTED, AND THEY WERE AGREEABLE. THIS WORKER ANSWERED THEIR QUESTIONS. THEY THANKED THIS WORKER AND HAD NO FURTHER QUESTIONS/NEEDS. THIS WORKER ALSO REVIEWED WITH THEM THAT THE TEAM PREFERS THAT THE DOES NOT VISIT ALONE SINCE HE HAD BEEN DISRUPTIVE EARLIER, AND THEY STATED THEY UNDERSTOOD AND WILL TRY AND PREVENT THIS FROM HAPPENING AGAIN. CALLED [facility]; SPOKE WITH ZACHERY, REQUESTED CARE ASSESSMENT.
--- NOTE | 2016-10-17 17:54 | NUR ---
Summary Pt. is A/O to person and place. She is GAKONA. VS's stable. Pt. does run hypertensive at times. Pt. is on RA. She has denied pain and nausea. Pt. is a minimal assist x1 with FWW and gait belt. Pt. is noted to have left sided weakness. She takes meds whole w/o difficulty. Pt.'s daughter Yareli is present. Will pass on report to maintenance mechanic 2nd shift.
[2016-10-17 19:49] VITALS: BP 140/73; PULSE 50; RESP 18; TEMP 98; O2SAT 96
[2016-10-17] MEDS: SIMVASTATIN 20 MG TABLET PO SCH (20:16)
[2016-10-17] MEDS: HYDROCODONE/APAP 5 mg/325 mg TABLET PO PRN (23:40)
--- NOTE | 2016-10-18 02:58 | NUR ---
Chart Check 24 hour chart check completed
[2016-10-18 03:41] VITALS: PULSE 50; RESP 18
[2016-10-18] MEDS: LEVOTHYROXINE 125 MCG TABLET PO SCH (06:35)
--- NOTE | 2016-10-18 06:45 | NUR ---
Summary Ramona is a quiet and pleasant patient.She is alert to self only.VSS.Was medicated for back pain x one per request,asleep upon reeval.When in bed her side rails are up x two and bedalarms intact.She has slept well this shift.She is continent of urine ,pericare per pt and min assist with clothing management. She ambulates and transfers with fww gaitbelt and contact guard of one staff.
[2016-10-18 08:00] VITALS: BP 166/80; PULSE 40; RESP 16; TEMP 98.3; O2SAT 94
[2016-10-18] MEDS: AMIODARONE 200 MG TABLET PO SCH ×2 (09:00→20:31)
[2016-10-18] MEDS: LISINOPRIL 40 MG TABLET PO SCH (09:00)
[2016-10-18] MEDS: DOCUSATE SODIUM 100 MG CAPSULE PO SCH ×2 (09:15→20:31)
[2016-10-18] MEDS: LUTEIN 20 MG PO SCH (09:15)
[2016-10-18] MEDS: CALCIUM 600mg + VIT D 400 TABLET PO SCH ×2 (09:15→20:31)
[2016-10-18] MEDS: CALCITONIN NASAL SPRAY 200 UNITS NAS SCH (09:16)
[2016-10-18] MEDS: ASPIRIN 325 MG TABLET PO SCH (09:17)
[2016-10-18] MEDS: HYDROCODONE/APAP 5 mg/325 mg TABLET PO PRN ×2 (10:21→20:33)
--- NOTE | 2016-10-18 15:32 | NUR ---
CM CARE ASSESSMENT COMPLETED.
--- NOTE | 2016-10-18 15:35 | NUR ---
Nutrition Risk R/T poor po intake for 3rd day while in the hospital Diet Order: Regular SHRIMP PEELER notified RD of pt's poor po intake. Pt offered mighty shake which pt consumed. Pt states she is not particular, but is not a big eater. Pt offered mighty shakes with each meal and 1/2 pbj sandwich at 2 pm snack and pbutter and crackers at HS snack. FANS notified to send mighty shakes TID and snacks RD available at ext [phone]
[2016-10-18 16:06] VITALS: BP 146/73; PULSE 52; RESP 18; TEMP 98.3; O2SAT 97
--- NOTE | 2016-10-18 19:32 | PNPDOC ---
IRU Subjective Date DATE: 10/17/16 TIME: 2039 Pt seen 10/17/16 at approx 2040, note entered tonight IRU Objective Vital Signs Vital signs Vital Signs Date Time Temp Pulse Resp B/P Pulse Ox O2 Delivery O2 Flow Rate FiO2 10/18/16 16:06 98.3 52 18 146/73 97 Room Air Height (Feet): 5 Height (Inches): 3.00 Weight (Kilograms): 55.200 General General Appearance: Alert, Orientated x 2 Respiratory (Brief) Respiratory: FOUND: clear all guzman, equal bilaterally, NOT FOUND: rales Cardiovascular (Brief) Cardiac: FOUND: regular rate, regular rhythm, NOT FOUND: pedal edema Capillary Refill: <2 sec Assessment & Plan Problems: (1) Closed fracture of T11 vertebra Status: Acute Qualifiers: Encounter type: initial encounter Fracture morphology: wedge compression Qualified Codes: S22.080A - Wedge compression fracture of t11-T12 vertebra, initial encounter for closed fracture Assessment & Plan: Stable, PT and OT working to strengthen patient and improved stability. Continue with current plan. (2) Falls Status: Acute Assessment & Plan: Nutrition will be discussed with patient, patient continues to work with physical therapy and occupational therapy. Speech is consulted. (3) Self-care deficit for hygiene Status: Acute Assessment & Plan: OT working with patient to increase ability to manage ADL. Continue with current plan. (4) Orthostatic hypotension Status: Resolved Assessment & Plan: Managed by medical Code Status Full Code Interventions to Obtain Goals PT Treatment Plan: Therapeutic Exercise, Gait Training, Functional Activities , Patient/Family Education, Balance/Proprioception OT Treatment Plan: ADL's (basic care), Ther. Exercise for ADL's, Balance Training, Pt./Family Education, IADL's Hospital Course Summary Disclaimer The hospital course summary below is not to be considered part of the above Progress Note. EKTA CARDONA MD Oct 18, 2016 19:32
--- NOTE | 2016-10-18 19:35 | PDIRUOPC ---
Overall Plan of Care Date DATE: 10/18/16 TIME: 19:32 Relevant Changes Relevant Changes: No I have reviewed the patient's information and concur with the finding and results of the pre-admission screen. Certification I certify the patient for rehabilitation. Patient Impairments Prior Medical Conditions: (1) Closed fracture of T11 vertebra Status: Acute Additional Information: Stable, PT and OT working to strengthen patient and improved stability. Continue with current plan. (2) Falls Status: Acute Additional Information: Nutrition will be discussed with patient, patient continues to work with physical therapy and occupational therapy. Speech is consulted. (3) Self-care deficit for hygiene Status: Acute Additional Information: OT working with patient to increase ability to manage ADL. Continue with current plan. (4) Orthostatic hypotension Status: Resolved Additional Information: Managed by medical Current Medical Conditions: (1) Closed fracture of T11 vertebra Status: Acute Additional Information: Stable, PT and OT working to strengthen patient and improved stability. Continue with current plan. (2) Falls Status: Acute Additional Information: Nutrition will be discussed with patient, patient continues to work with physical therapy and occupational therapy. Speech is consulted. (3) Self-care deficit for hygiene Status: Acute Additional Information: OT working with patient to increase ability to manage ADL. Continue with current plan. (4) Orthostatic hypotension Status: Resolved Additional Information: Managed by medical Medical Prognosis Fair IRF Tx That Should Address Dx: (1) Myopathy (2) Falls (3) Self-care deficit for hygiene Dx Requiring Medical FU: (1) Encephalopathy acute (2) Orthostatic hypotension (3) Closed fracture of T11 vertebra Vital Signs Vital Signs Date Time Temp Pulse Resp B/P Pulse Ox O2 Delivery O2 Flow Rate FiO2 10/18/16 16:06 98.3 52 18 146/73 97 Room Air Anticipated Interventions The patient requires inpatient IRF care for PT, OT, and/or ST for residuals remaining from myopathy, falls, self-care deficit for hygiene. Resulting in muscular weakness and strength deficits. ROM Deficit: Left Lower Extremity, Right Lower Extremity Strength Deficits: Left Lower Extremity, Right Lower Extremity FIM Scores Ambulation Distance: 846 Ambulation Ability: 5 Supervision/Setup Ambulation Assistance Needed: 1 Person Walk FIM Score Reason: VC required for safety Stairs: 2 Maximum Assistance Number of Stairs: 4 Reason for Stair FIM: # of stairs. 5/7 household exception FIM Eating Ability-FIM: 5 Supervision/Setup Grooming Ability: 5 Supervision/Setup Bathing Ability: 4 Minimal Assistance Upper Body Dressing Ability: 4 Minimal Assistance Lower Body Dressing Ability: 3 Moderate Assistance Lower Body Dressing Assistance: 1 Person Toileting Ability: 4 Minimal Assistance Toileting Assistance Needed: 1 Person Bed Transfer Ability: 4 Minimal Assistance Bed Transfer Assistance Needed: 1 Person Chair Transfer Ability: 5 Supervision/Setup Chair Transfer Assistance Need: 1 Person Overall Toilet / Commode Trans: 4 Minimal Assistance Toilet / Commode Transfer Assi: 1 Person Tub / Shower Transfer Ability: 4 Minimal Assistance Tub / Shower Transfer Assistan: 1 Person Comprehension Ability: 4 Minimal Assistance Social Interaction: 5 Supervision/Setup Problem Solvin Minimal Assistance Expression Ability: 5 Supervision/Setup Memory: 4 Minimal Assistance Current Functional Status Failed Alternative Therapy: Arrived from acute care Patient Requires * Patient has been determined to have significant functional limitations requiring at least two therapy disciplines. * Rehabilitation medical practitioner will provide admission approval, assessment and oversight and program coordination at least daily. * Intensive rehabilitative nursing services on site and available 24 hours a day. * The treatment plan will be developed within 24 hours of admission. * Interdisciplinary and goal oriented treatment by professional nursing, social service manager, and rehabilitation therapist. * Interdisciplinary team meeting weekly inclusive of ongoing comprehensive discharge planning. First team meeting by day seven. Weekly meetings to follow. * Rehab Physician is the team meeting leader. * Pharmacy and diagnostic services will be available. * Ongoing comprehensive rehab program with at least 2 disciplines and greater than or equal to 3 hours a day, 5 days a week. Limitations require: limited mobility, ADL impairment Physical Therapy Minutes: 90 Occupational Therapy Minutes: 90 Therapy The patient is to receive therapy at least 5 days a week. PT Treatment Plan: Therapeutic Exercise, Gait Training, Functional Activities , Patient/Family Education, Balance/Proprioception Treatment Plan Frequency: five times per week Treatment Plan Duration: two weeks Plan of Care Comment: 6x/week x 1 week, then 5x/week x 2 weeks OT Treatment Plan: ADL's (basic care), Ther. Exercise for ADL's, Balance Training, Pt./Family Education, IADL's OT Treatment Plan Frequency: five times per week OT Treatment Plan Duration: three weeks Anticapted LOS/Outcomes Anticipated Functional Outcome Patient should return to pre-fall/T11 fracture strength and stability. Anticipated DC Destination: Home Health Service Home Safety Plan The patient will be provided with the development of a Home Safety Plan for return to a home or home-like environment and to ensure safety post discharge. Complicating Conditions Complications since IRF admit: (1) Closed fracture of T11 vertebra Status: Acute Comments: Stable, PT and OT working to strengthen patient and improved stability. Continue with current plan. (2) Falls Status: Acute Comments: Nutrition will be discussed with patient, patient continues to work with physical therapy and occupational therapy. Speech is consulted. (3) Self-care deficit for hygiene Status: Acute Comments: OT working with patient to increase ability to manage ADL. Continue with current plan. (4) Orthostatic hypotension Status: Resolved Comments: Managed by medical Other Contributing Factors: Plan to Avoid Complications Barriers to Attaining Goals: weakness, balance, endurance, pain control Plan to Avoid Complications The patient cannot receive this care in a lesser intensive setting such as Senior Living or Outpatient Therapy due to the patient requiring the following orthostatic hypotension, risk of fall. The patient requires oversight by a rehabilitation physician to manage their rehabilitation treatment plan and the multidisciplinary approach to care that can only be provided in an IRF and requires a multidisciplinary approach to care , provided by professional PTs, OTs, STs, dieticians, RTs, rehabilitation nurses and is not available in lesser levels of care. The frequency and duration for therapy, as recommended by the professional Rehabilitation therapists, meet the patient's initial rehabilitation treatment plan needs and will be further evaluated on a weekly basis for progress and/or changes needed. Problem Qualifiers (1) Closed fracture of T11 vertebra: Encounter type: initial encounter Fracture morphology: wedge compression Qualified Codes: S22.080A - Wedge compression fracture of t11-T12 vertebra, initial encounter for closed fracture EKTA CARDONA MD Oct 18, 2016 19:35
[2016-10-18 20:00] VITALS: BP 139/71; PULSE 56; RESP 16; TEMP 97.9; O2SAT 99
[2016-10-18] MEDS: SIMVASTATIN 20 MG TABLET PO SCH (20:32)
--- NOTE | 2016-10-18 20:35 | NUR ---
Shift summary Patient alert to self only. Ambulating with min assist, FWW, gait belt. Transfers with min assist. Continent of bladder this shift, wears pull ups. Patient heart rate in 40's. Hospitalist notified with orders for parameters on medications. Patient has had poor appetite. Dietitcian has visited with patient for snacks between meals. Wears hearing aid in left ear. Working withe PT, OT, ST this shift.
[2016-10-18 23:20] VITALS: PULSE 56; RESP 16
--- NOTE | 2016-10-19 01:14 | NUR ---
Chart Check 24 hour chart check completed
[2016-10-19] MEDS: LEVOTHYROXINE 125 MCG TABLET PO SCH (05:22)
--- NOTE | 2016-10-19 05:30 | NUR ---
SUMMARY. PT HAS BEEN PLEASANT AND COOPERATIVE. PT IS VERY BAD R[place] BAND. VISION IN POOR WITH HX OF MAC DEGENERATION, SOME LEFT SIDE NEGLECT NOTED. PT USING CALL LIGHT WITH COTTON BALL TO HELP PT FIND CALL LIGHT. ASSIST TO BR USING FWW AND GAITBELT WITH 1 MOD ASSIST WITH CUEING. PT GIVEN NORCO 5 1 TAB AT HS FOR BACK DISCOMFORT. PT TAKES MEDS CRUSHED WITH APPLESAUCE. PT HAS SOME INCONT OF BLADDER. ASSIST WITH PULLUP CHANGE.
[2016-10-19 07:22] VITALS: BP 150/82; PULSE 59; RESP 18; TEMP 98.3; O2SAT 96
[2016-10-19 08:00] VITALS: PULSE 59; RESP 18
[2016-10-19] MEDS: AMIODARONE 200 MG TABLET PO SCH ×2 (08:49→20:56)
[2016-10-19] MEDS: DOCUSATE SODIUM 100 MG CAPSULE PO SCH ×2 (08:49→20:56)
[2016-10-19] MEDS: LUTEIN 20 MG PO SCH (08:49)
[2016-10-19] MEDS: CALCITONIN NASAL SPRAY 200 UNITS NAS SCH (08:49)
[2016-10-19] MEDS: LISINOPRIL 40 MG TABLET PO SCH (08:49)
[2016-10-19] MEDS: CALCIUM 600mg + VIT D 400 TABLET PO SCH ×2 (08:49→20:56)
[2016-10-19] MEDS: MILK OF MAGNESIA 30 ML SUSP PO PRN (08:50)
[2016-10-19] MEDS: ASPIRIN 325 MG TABLET PO SCH (08:52)
--- NOTE | 2016-10-19 09:00 | NUR ---
BM No BM is noted to be documented for pt. Spoke with pt. and she reports she does not have trouble with having a BM and believes she had a BM yesterday, but is unsure. Notified pt. that no BM has been documented. Scheduled Colace and PRN MOM given at breakfast. Will continue to monitor.
--- NOTE | 2016-10-19 14:04 | PNPDOC ---
Subjective Date DATE: 10/19/16 TIME: 13:57 Subjective Ramona is seen today sitting in her chair. She reports that she is doing well, she is eating and drinking well. She denies chest pain, shortness of air or discomfort. Pulse continues to be mildly bradycardic high 50s. Blood pressure 136/67. Objective Vital Signs Vital signs Vital Signs Date Time Temp Pulse Resp B/P Pulse Ox O2 Delivery O2 Flow Rate FiO2 10/19/16 08:00 59 18 10/19/16 07:22 98.3 150/82 96 Room Air Height (Feet): 5 Height (Inches): 3.00 Weight (Kilograms): 55.200 General General Appearance: Alert, Orientated x 3, Cooperative, No Acute Distress Respiratory (Brief) Respiratory: FOUND: clear all guzman, equal bilaterally Cardiovascular (Brief) Cardiac: FOUND: regular rate, regular rhythm Abdomen (Brief) Abdominal: FOUND: BS normo active x4, soft Integumentary (Brief) Integumentary: FOUND: dry, pink, warm Neurologic (Brief) Neurological: FOUND: cranial 2-12 intact Psychiatric (Brief) Psychiatric: FOUND: alert, normal affect, oriented Assessment & Plan Problems: (1) Closed fracture of T11 vertebra Status: Acute Qualifiers: Encounter type: initial encounter Fracture morphology: wedge compression Qualified Codes: S22.080A - Wedge compression fracture of t11-T12 vertebra, initial encounter for closed fracture (2) History of CVA (cerebrovascular accident) Status: Chronic Assessment & Plan: On 09/10/16 (3) Status post carotid endarterectomy Status: Chronic Assessment & Plan: 09/28/16- Dr Elizabeth (4) Dyslipidemia Status: Chronic (5) HTN (hypertension) Status: Chronic (6) Hypothyroidism Status: Chronic (7) Macular degeneration Status: Chronic (8) History of cataract Status: Resolved Plan/Intensity of Service 10/19/16 Decrease dose of beta kary to Metoprolol 12.5mg BID to avoid further bradycardia. Given that heart rate was in the 40s consistently. Heart rate this afternoon was 59. Continue to monitor blood pressure closely, continue on Lisinopril Otherwise, medically, patient is doing well. Continue with PT/OT for ongoing strengthening and improve function. . Code Status Full Code Hospital Course Summary Disclaimer The hospital course summary below is not to be considered part of the above Progress Note. Hospital Course Summary 10/19/16 Decrease dose of beta kary to Metoprolol 12.5mg BID to avoid further bradycardia. Given that heart rate was in the 40s consistently. Heart rate this afternoon was 59. Continue to monitor blood pressure closely, continue on Lisinopril Otherwise, medically, patient is doing well. Continue with PT/OT for ongoing strengthening and improve function. . DWAINE JULIEN APRN Oct 19, 2016 14:03
[2016-10-19 16:39] VITALS: BP 136/67; PULSE 58; RESP 16; TEMP 97.8; O2SAT 98
--- NOTE | 2016-10-19 17:40 | NUR ---
Summary VS's stable. Pt. is pleasant and ANDREAFSKI. She is an assist x1 with FWW and gait belt. She does have left sided weakness that is noted. Pt. takes meds whole w/o difficulty. She has denied pain and nausea this shift. Will pass on report to shiftman.
--- NOTE | 2016-10-19 19:55 | PNPDOC ---
IRU Subjective Date DATE: 10/19/16 TIME: 19:54 Subjective Patient cooperating working well with physical therapy and occupational therapy. Eating meals and common area. IRU Objective Vital Signs Vital signs Vital Signs Date Time Temp Pulse Resp B/P Pulse Ox O2 Delivery O2 Flow Rate FiO2 10/19/16 16:39 97.8 58 16 136/67 98 Room Air Telemetry Rhythm: Sinus Rhythm, Bundle Branch Block Height (Feet): 5 Height (Inches): 3.00 Weight (Kilograms): 55.200 General General Appearance: Alert, Orientated x 2 Respiratory (Brief) Respiratory: FOUND: clear all guzman, equal bilaterally Cardiovascular (Brief) Cardiac: FOUND: regular rate, regular rhythm Musculoskeletal (Brief) Comments Continue tenderness over thoracic spine Assessment & Plan Problems: (1) Closed fracture of T11 vertebra Status: Acute Qualifiers: Encounter type: initial encounter Fracture morphology: wedge compression Qualified Codes: S22.080A - Wedge compression fracture of t11-T12 vertebra, initial encounter for closed fracture Assessment & Plan: Mobility increasing, patient working with physical therapy and occupational therapy. Reevaluate Saturday in team meeting. (2) Falls Status: Acute Assessment & Plan: Patient increasing stability working with PT and OT. (3) Self-care deficit for hygiene Status: Acute (4) Orthostatic hypotension Status: Resolved Assessment & Plan: Managed by medical Code Status Full Code Interventions to Obtain Goals PT Treatment Plan: Therapeutic Exercise, Gait Training, Functional Activities , Patient/Family Education, Balance/Proprioception OT Treatment Plan: ADL's (basic care), Ther. Exercise for ADL's, Balance Training, Pt./Family Education, IADL's Hospital Course Summary Disclaimer The hospital course summary below is not to be considered part of the above Progress Note. Hospital Course Summary 10/19/16 Decrease dose of beta kary to Metoprolol 12.5mg BID to avoid further bradycardia. Given that heart rate was in the 40s consistently. Heart rate this afternoon was 59. Continue to monitor blood pressure closely, continue on Lisinopril Otherwise, medically, patient is doing well. Continue with PT/OT for ongoing strengthening and improve function. . EKTA CARDONA MD Oct 19, 2016 19:55
[2016-10-19] MEDS: SIMVASTATIN 20 MG TABLET PO SCH (20:55)
[2016-10-19 22:22] VITALS: BP 154/90; PULSE 57; RESP 18; TEMP 98.2; O2SAT 96
[2016-10-20 00:32] VITALS: PULSE 57; RESP 18
--- NOTE | 2016-10-20 00:51 | NUR ---
Chart Check 24 hour chart check completed
--- NOTE | 2016-10-20 05:34 | NUR ---
Summary Patient in bed with bed alarm on and call light within reach. She has been up a couple of times to the restroom, both times asking for help verbally rather than using the call light. At about 3am she thought it was time to get up. Patient is very hard of hearing without her hearing aids. Hearing aids are in her Mod for protection per request of family. She is able to get in and out of bed with supervision/set up and ambulate to the restroom with FWW and gait belt. She performed her own hygiene, however did need minimal assist with depends. She has been incontinent of urine times one.
[2016-10-20] MEDS: LEVOTHYROXINE 125 MCG TABLET PO SCH (06:25)
[2016-10-20] MEDS: HYDROCODONE/APAP 5 mg/325 mg TABLET PO PRN (07:45)
[2016-10-20 08:00] VITALS: BP 143/73; PULSE 48; RESP 16; TEMP 98.1; O2SAT 97
[2016-10-20] MEDS: LUTEIN 20 MG PO SCH (08:57)
[2016-10-20] MEDS: DOCUSATE SODIUM 100 MG CAPSULE PO SCH ×2 (08:58→20:17)
[2016-10-20] MEDS: AMIODARONE 200 MG TABLET PO SCH ×2 (08:58→20:18)
[2016-10-20] MEDS: CALCITONIN NASAL SPRAY 200 UNITS NAS SCH (08:58)
[2016-10-20] MEDS: LISINOPRIL 40 MG TABLET PO SCH (08:58)
[2016-10-20] MEDS: ASPIRIN 325 MG TABLET PO SCH (09:00)
[2016-10-20] MEDS: CALCIUM 600mg + VIT D 400 TABLET PO SCH ×2 (09:00→20:17)
[2016-10-20 16:00] VITALS: BP 163/80; PULSE 48; RESP 20; TEMP 97.8; O2SAT 97
--- NOTE | 2016-10-20 19:06 | NUR ---
Shift summary Patient alert and oriented to self and family. Wears hearing aids. Poor vision. Patient ambulating with FWW, gait belt, min assist, verbal cues to not abandon walker when transferring. Transfers with min assist, gait belt, FWW. Patient had norco for discomfort this a.m. while working with OT. Patient refused bath or shower this shift. Continent of Bowel and bladder this shift. Wears pull ups.
[2016-10-20] MEDS: SIMVASTATIN 20 MG TABLET PO SCH (20:17)
[2016-10-20 23:08] VITALS: PULSE 58; RESP 20
[2016-10-21 00:57] VITALS: BP 156/71; PULSE 57; RESP 16; TEMP 97.6; O2SAT 97
--- NOTE | 2016-10-21 02:25 | NUR ---
Chart Check 24 hour chart check completed
--- NOTE | 2016-10-21 05:40 | NUR ---
Summary Ramona has been pleasant and cooperative. She is oriented to person and place. She is very [place] and has poor eye site. She has used her call light appropriately tonight, and has required minimal assist sitting up in bed, standing and ambulating to the restroom. She has needed assist getting her depends up and down. She gets herself in and out of bed independently. She has taken her medication without any problem. She has not had a bowel movement while here. I asked her about using a suppository or MOM but she refused, saying she never has any problems with bowels. I am hoping she will be easier to talk into it when she has her hearing aids in. She is in bed now with SCDs on, bed alarm on, side rails up times two and call light within reach.
[2016-10-21] MEDS: LEVOTHYROXINE 125 MCG TABLET PO SCH (06:30)
[2016-10-21 07:17] VITALS: BP 172/78; PULSE 47; RESP 16; TEMP 98.2; O2SAT 93
[2016-10-21 08:00] VITALS: PULSE 47
[2016-10-21] MEDS: DOCUSATE SODIUM 100 MG CAPSULE PO SCH ×2 (08:22→21:55)
[2016-10-21] MEDS: AMIODARONE 200 MG TABLET PO SCH ×2 (08:23→21:55)
[2016-10-21] MEDS: ASPIRIN 325 MG TABLET PO SCH (08:23)
[2016-10-21] MEDS: CALCIUM 600mg + VIT D 400 TABLET PO SCH ×2 (08:23→21:54)
[2016-10-21] MEDS: LISINOPRIL 40 MG TABLET PO SCH (08:23)
[2016-10-21] MEDS: LUTEIN 20 MG PO SCH (08:24)
[2016-10-21] MEDS: CALCITONIN NASAL SPRAY 200 UNITS NAS SCH (08:24)
[2016-10-21] MEDS: MILK OF MAGNESIA 30 ML SUSP PO PRN (12:32)
[2016-10-21 16:00] VITALS: BP 135/71; PULSE 52; RESP 20; TEMP 98.1; O2SAT 97
--- NOTE | 2016-10-21 19:06 | NUR ---
SHIFT SUMMARY PATIENT ALERT, ORIENTED X 1. C/O MILD PAIN IN BACK, REFUSES PAIN MEDS. NO BM REPORTED SINCE 10/16. MOM GIVEN, NO BM YET TODAY. WILL CONT TO MONITOR. PATIENT UP WITH ONE WITH GAIT BELT AND WALKER. DIET ADEQUATE TODAY. WILL CONT TO MONITOR.
[2016-10-21 19:50] VITALS: BP 130/78; PULSE 57; TEMP 98.4; O2SAT 98
--- NOTE | 2016-10-21 21:08 | PNPDOC ---
IRU Subjective Date DATE: 10/21/16 TIME: 21:06 Subjective Tolerating exercises despite pain, working with PT and OT. IRU Objective Vital Signs Vital signs Vital Signs Date Time Temp Pulse Resp B/P Pulse Ox O2 Delivery O2 Flow Rate FiO2 10/21/16 16:00 98.1 52 20 135/71 97 Room Air Telemetry Rhythm: Sinus Rhythm, Bundle Branch Block Height (Feet): 5 Height (Inches): 3.00 Weight (Kilograms): 55.200 Respiratory (Brief) Respiratory: FOUND: clear all guzman, equal bilaterally Cardiovascular (Brief) Cardiac: FOUND: regular rate, regular rhythm Capillary Refill: <2 sec Assessment & Plan Problems: (1) Closed fracture of T11 vertebra Status: Acute Qualifiers: Encounter type: initial encounter Fracture morphology: wedge compression Qualified Codes: S22.080A - Wedge compression fracture of t11-T12 vertebra, initial encounter for closed fracture Assessment & Plan: PT and OT working to increase strength and stamina. Reeval plan of care in team meeting in am. (2) Falls Status: Acute Assessment & Plan: improving stability with PT and OT (3) Self-care deficit for hygiene Status: Acute Assessment & Plan: OT working to increase abilities. (4) Orthostatic hypotension Status: Resolved Assessment & Plan: medical to manage DVT Prophylaxis: SCD'S Code Status Full Code Interventions to Obtain Goals PT Treatment Plan: Therapeutic Exercise, Gait Training, Functional Activities , Patient/Family Education, Balance/Proprioception OT Treatment Plan: ADL's (basic care), Cognitive Skills Develop., Ther. Exercise for ADL's, UE Functional Training, Balance Training, Pt./Family Education, IADL's Hospital Course Summary Disclaimer The hospital course summary below is not to be considered part of the above Progress Note. Hospital Course Summary 10/19/16 Decrease dose of beta kary to Metoprolol 12.5mg BID to avoid further bradycardia. Given that heart rate was in the 40s consistently. Heart rate this afternoon was 59. Continue to monitor blood pressure closely, continue on Lisinopril Otherwise, medically, patient is doing well. Continue with PT/OT for ongoing strengthening and improve function. . EKTA CARDONA MD Oct 21, 2016 21:08
[2016-10-21] MEDS: SIMVASTATIN 20 MG TABLET PO SCH (21:55)
[2016-10-21 22:49] VITALS: PULSE 57; RESP 20
--- NOTE | 2016-10-22 04:08 | NUR ---
Chart Check 24 hour chart check completed
[2016-10-22] MEDS: LEVOTHYROXINE 125 MCG TABLET PO SCH (05:01)
--- NOTE | 2016-10-22 06:10 | NUR ---
Summary Pt is alert to self, pleasant and cooperative. She uses her call light appropriately. When up to restroom she requires minimal assist sitting up in bed and managing her own clothing. She ambulates and gets back in bed independently with gait belt, FWW and supervision. She became unsteady in the restroom once during the night and staff had to steady her to prevent her from falling. She is currently in bed with SCDs on, bed alarm on, side rails up times two and call light within reach.
[2016-10-22 08:00] VITALS: BP 171/92; PULSE 64; RESP 18; TEMP 98.3; O2SAT 97
[2016-10-22] MEDS: DOCUSATE SODIUM 100 MG CAPSULE PO SCH ×2 (08:59→21:11)
[2016-10-22] MEDS: LUTEIN 20 MG PO SCH (08:59)
[2016-10-22] MEDS: LISINOPRIL 40 MG TABLET PO SCH (08:59)
[2016-10-22] MEDS: CALCIUM 600mg + VIT D 400 TABLET PO SCH ×2 (08:59→21:11)
[2016-10-22] MEDS: MILK OF MAGNESIA 30 ML SUSP PO PRN (09:00)
[2016-10-22] MEDS: AMIODARONE 200 MG TABLET PO SCH ×2 (09:00→21:12)
[2016-10-22] MEDS: ASPIRIN 325 MG TABLET PO SCH (09:02)
[2016-10-22] MEDS: CALCITONIN NASAL SPRAY 200 UNITS NAS SCH (09:02)
--- NOTE | 2016-10-22 12:59 | PDIRUTEAM ---
Multidisciplinary Team Meeting Nursing Hx Incontinence: Yes (at times) Bladder Goal: 6 Modified Petroleum Self Y/N: No Bladder Continent or Incontine: Continent Incontinent Product Used: Pull-up Number of Times Incontinent of: 0 Cleaning Ability-Bladder: 5 Supervision/Setup Bladder Incontinence Managemen: 3 Moderate Assistance Bowel Goal: 6 Modified Petroleum Colostomy Y/N: No Bowel Incontinent/Continent: Continent Bowel Number of Accidents: 0 Number of times Incontinent of: 0 Toileting Ability: 5 Supervision/Setup Vital Signs Vital Signs Date Time Temp Pulse Resp B/P Pulse Ox O2 Delivery O2 Flow Rate FiO2 10/22/16 08:00 98.3 64 18 171/92 97 Room Air Current Medications Current Medications Medications (Trade) Dose Ordered Sig/Cara Route PRN Reason Start Time Stop Time Status Last Admin Dose Admin Docusate Sodium (Colace) 100 mg BID PO 10/15/16 21:00 10/22/16 08:59 Amiodarone HCl (Pacerone) 200 mg BID PO 10/15/16 21:00 10/22/16 09:00 Clopidogrel Bisulfate (Plavix) 75 mg DAILY PO 10/16/16 09:00 10/16/16 16:59 DC 10/16/16 08:29 Levothyroxine Sodium (Synthroid) 125 mcg ACB PO 10/16/16 06:30 10/22/16 05:01 Lisinopril (Prinivil) 20 mg DAILY PO 10/16/16 09:00 10/17/16 08:03 DC 10/16/16 08:29 Lutein (Lutein) 20 mg DAILY PO 10/16/16 09:00 10/22/16 08:59 Metoprolol Succinate (Toprol Xl) 25 mg DAILY PO 10/16/16 09:00 10/16/16 11:32 DC 10/16/16 08:29 Acetaminophen/ Hydrocodone Bitart (Osage 5/325) 1-2 Q4H PRN PO PAIN 10/15/16 20:00 10/20/16 07:45 Simvastatin (Zocor) 20 mg HS PO 10/16/16 22:00 10/21/16 21:55 Metoprolol Tartrate (Lopressor) 25 mg BIDWM PO 10/16/16 17:30 10/19/16 07:52 DC 10/17/16 17:35 Aspirin (ASA) 325 mg DAILY PO 10/17/16 09:00 10/22/16 09:02 Calcitonin (Miacalcin) 1 spray DAILY BENJAMIN 10/16/16 18:45 10/22/16 09:02 Calcium/Vitamin D (Caltrate + D) 1 tab BID PO 10/16/16 21:00 10/22/16 08:59 Lisinopril (Prinivil) 40 mg DAILY PO 10/17/16 09:00 10/22/16 08:59 Metoprolol Tartrate (Lopressor) 12.5 mg BIDWM PO 10/19/16 08:00 10/22/16 08:59 Magnesium Hydroxide (Mom) 30 ml DAILY PRN PO CONSTIPATION 10/19/16 08:45 10/22/16 09:00 Comments Issues with elevated blood pressure. Incontinence of urine. Physical Therapy Bed Transfer Ability: 5 Supervision/Setup Bed Transfer Assistance Needed: 1 Person Bed FIM Score Reason: Needs steadying assist for Side lying to Sit d/t back pain. Chair Transfer Ability: 5 Supervision/Setup Chair Transfer Assistance Need: 1 Person Chair FIM Score Reason: Needs set up for FWW Overall Toilet / Commode Trans: 5 Supervision/Setup Ambulation Ability: 5 Supervision/Setup Ambulation Assistance Needed: 1 Person Walk FIM Score Reason: poor safety awareness Ambulation Distance: 260 Comments FIMS fives.Needs supervision for safety as does not remember to follow safety protocol. Occupational Therapy Grooming Ability: 4 Minimal Assistance Grooming FIM Score Reason: Standing at the sink w/ FWW,pt completed cleaning dentures and putting them in, combed hair but needed assist w/ completing combing hair in the middle/back Bathing Ability: 4 Minimal Assistance Upper Body Dressing Ability: 5 Supervision/Setup Dressing-Upper FIM Score Reaso: OT gathered clothes and pt needed cuing to find L UE sleeve, as well as cuing to pull L sleeve all the way up to the shld before pulling shirt over head Lower Body Dressing Ability: 4 Minimal Assistance Lower Body Dressing Assistance: 1 Person Dressing-Lower FIM Score Reaso: Needed assist to don L LE pant leg on Toileting Assistance Needed: 1 Person Comments FIMS 4-5. Decreased vision and left side neglect cause issues. Care Plan Condition at time of discharge: Fair IRU Discharge Disposition: Home Health Service Interventions/Goals D/C plan is for placement to assisted living. Intake is improving. ?Dementia. CARMELA ordered. EKTA CARDONA MD Oct 22, 2016 12:57
--- NOTE | 2016-10-22 13:03 | PNPDOC ---
Subjective Date DATE: 10/22/16 TIME: 12:53 Subjective Ramona is seen today in follow up while eating breakfast. She is alert and pleasant and without any complains. She denies having any pain or shortness of breath. Appetite fair. Bp this mornign was elevated at171/92. Beta kary was held last night due to bradycardia. Objective Vital Signs Vital signs Vital Signs Date Time Temp Pulse Resp B/P Pulse Ox O2 Delivery O2 Flow Rate FiO2 10/22/16 08:00 98.3 64 18 171/92 97 Room Air Telemetry Rhythm: Sinus Rhythm, Bundle Branch Block Height (Feet): 5 Height (Inches): 3.00 Weight (Kilograms): 55.200 General General Appearance: Alert, Orientated x 2, Cooperative, No Acute Distress Eyes (Brief) Eyes: FOUND: EOMI ENMT (Brief) ENMT: FOUND: mucosa moist, normal dentition, NOT FOUND: pharnyx erythema Neck (Brief) Neck: FOUND: midline, NOT FOUND: adenopathy, carotid bruits, tracheal deviation Respiratory (Brief) Respiratory: FOUND: clear all guzman, equal bilaterally, NOT FOUND: wheezes Cardiovascular (Brief) Cardiac: FOUND: regular rate, regular rhythm, NOT FOUND: murmur, pedal edema Capillary Refill: <2 sec Abdomen (Brief) Abdominal: FOUND: BS normo active x4, soft, NOT FOUND: distended, tender Lymphatic (Brief) Lymphatic: NOT FOUND: adenopathy Musculoskeletal (Brief) Musculoskeletal: NOT FOUND: tenderness Integumentary (Brief) Integumentary: FOUND: dry, pink, warm Neurologic (Brief) Neurological: FOUND: cranial 2-12 intact Psychiatric (Brief) Psychiatric: FOUND: alert, attentive, normal affect, oriented Assessment & Plan Problems: (1) Closed fracture of T11 vertebra Status: Acute Qualifiers: Encounter type: initial encounter Fracture morphology: wedge compression Qualified Codes: S22.080A - Wedge compression fracture of t11-T12 vertebra, initial encounter for closed fracture (2) History of CVA (cerebrovascular accident) Status: Chronic Assessment & Plan: On 09/10/16 (3) Status post carotid endarterectomy Status: Chronic Assessment & Plan: 09/28/16- Dr Elizabeth (4) Dyslipidemia Status: Chronic (5) HTN (hypertension) Status: Chronic (6) Hypothyroidism Status: Chronic (7) Macular degeneration Status: Chronic (8) History of cataract Status: Resolved Plan/Intensity of Service 10/22/16 BP continues to be elevated. Will keep Metoprolol at 12.5 BID due to intermittent bradycardia. Will add Norvasc 5 mg daily. Continue to monitor in light of recent CVA. Otherwise, medically, patient is doing well. Questionable ?dementia. CARMELA diaz ordered Continue with PT/OT for ongoing strengthening and improve function. Code Status Full Code Hospital Course Summary Disclaimer The hospital course summary below is not to be considered part of the above Progress Note. Hospital Course Summary 10/19/16 Decrease dose of beta kary to Metoprolol 12.5mg BID to avoid further bradycardia. Given that heart rate was in the 40s consistently. Heart rate this afternoon was 59. Continue to monitor blood pressure closely, continue on Lisinopril Otherwise, medically, patient is doing well. Continue with PT/OT for ongoing strengthening and improve function. . 10/22/16 BP continues to be elevated. Will keep Metoprolol at 12.5 BID due to intermittent bradycardia. Will add Norvasc 5 mg daily. Continue to monitor in light of recent CVA. Otherwise, medically, patient is doing well. Questionable ?dementia. CARMELA diaz ordered Continue with PT/OT for ongoing strengthening and improve function. DWAINE JULIEN APRN Oct 22, 2016 12:56
[2016-10-22] MEDS: AMLODIPINE 5 MG TABLET PO SCH (15:53)
--- NOTE | 2016-10-22 16:23 | NUR ---
Nutrition Risk R/T poor po intake >3 days while in the hospital Pt states she likes the mighty shakes and would like to continue getting them. Pt recalls getting the pbj sandwich for afternoon snack 1x but doesn't remember any other times. Pt does not recall getting the pbutter and crackers at HS. RD notified [facility] to continue sending mighty shakes and snacks. Nursing notified to pass snacks to pt. RD available at ext [phone]
[2016-10-22 16:25] VITALS: BP 142/73; PULSE 62; RESP 16; TEMP 97.8; O2SAT 97
--- NOTE | 2016-10-22 19:19 | NUR ---
Shift summary Patient alert to self. Ambulating with FWW, gait belt, min assist. Alarms used. Abandons walker and needs verbal cues. Refused bath this shift. Min assist with upper and lower body dressing. Contnent of bowel and bladder. Wears pull ups. Wears dentures, can put in by self. Poor vision, wears hearing aids.
[2016-10-22 19:59] VITALS: BP 142/65; PULSE 45; RESP 16; TEMP 98.1; O2SAT 94
[2016-10-22] MEDS: SIMVASTATIN 20 MG TABLET PO SCH (21:13)
[2016-10-22 23:40] VITALS: PULSE 64; RESP 16
--- NOTE | 2016-10-22 23:49 | NUR ---
STATUS. PT SITS IN RECLINER UNTIL 2099. 1 ASSIST USING FWW AND GAITBELT TO BR. MIN ASSIST WITH CLOTHING. PT MANAGING HYGIENE. PT PLACING DENTURES IN CUP. HEARINGS IN BOXES AND LOCKED IN MOD. PT GIVEN SCHEDULED MEDS CRUSHED WITH APPLESAUCE.PT DENIED NEED FOR PAIN MED FOR BACK PAIN. PT HAS CALLED FOR BR ASSIST. SCDS ON WHILE IN BED.
--- NOTE | 2016-10-22 23:57 | NUR ---
Chart Check 24 hour chart check completed
[2016-10-23 01:47] VITALS: RESP 16
[2016-10-23] MEDS: LEVOTHYROXINE 125 MCG TABLET PO SCH (06:19)
[2016-10-23 07:27] VITALS: BP 142/76; PULSE 52; RESP 16; TEMP 98.1; O2SAT 95
--- NOTE | 2016-10-23 07:32 | NUR ---
Summary VSS. No new orders. Continent of bladder and bowel. She has reported some pain but has denied need for pain meds.She has slept well.She ambulates with fww gb and contact guard.Her gait is unsteady and becomes worse when she stands still. Left facial drop noted along with weakness on her left side.
[2016-10-23 08:00] VITALS: PULSE 52; RESP 16
[2016-10-23] MEDS: CALCITONIN NASAL SPRAY 200 UNITS NAS SCH (08:35)
[2016-10-23] MEDS: AMIODARONE 200 MG TABLET PO SCH ×2 (08:36→20:08)
[2016-10-23] MEDS: CALCIUM 600mg + VIT D 400 TABLET PO SCH ×2 (08:36→20:07)
[2016-10-23] MEDS: LUTEIN 20 MG PO SCH (08:36)
[2016-10-23] MEDS: DOCUSATE SODIUM 100 MG CAPSULE PO SCH ×2 (08:36→20:06)
[2016-10-23] MEDS: LISINOPRIL 40 MG TABLET PO SCH (08:36)
[2016-10-23] MEDS: AMLODIPINE 5 MG TABLET PO SCH (08:37)
[2016-10-23] MEDS: ASPIRIN 325 MG TABLET PO SCH (08:39)
[2016-10-23 16:00] VITALS: BP 141/70; PULSE 46; RESP 16; TEMP 97.7; O2SAT 98
--- NOTE | 2016-10-23 17:05 | NUR ---
CM SPOKE WITH PT AND SPOUSE. REVIEWED IRU POC; PT'S SIGNED AT PT'S REQUEST. DISCUSSED POSSIBLE SNU WITH THEM. LEFT MESSAGES WITH PT'S CHILDREN; RODRIGUEZ, AMANDA, AND LORNA. LORNA (QUETA) RETURNED CALL. DISCUSSED THAT PT IS READY TO TRANSFER AND NEEDS SUPERVISION STILL. UPDATED HIM THAT THE CHOICES THEY HAD CHOSEN ALL REQUIRE MONEY UPFRONT AND DO NOT WORK WITH MEDICAID PENDING STATUS. DISCUSSED OPTION OF RETURN HOME WITH INHOME SERVICES WHILE THE FAMILY LOOKS FOR [facility] AND FOLLOWS UP WITH MEDICAID. THIS WORKER ENCOURAGED HIM TO TALK WITH THE SISTERS AND THIS WORKER WILL FOLLOW UP WITH ONE OF THEM TOMORROW.
[2016-10-23 20:00] VITALS: PULSE 52; RESP 20
--- NOTE | 2016-10-23 20:00 | NUR ---
Shift summary Patient ambulating with FWW, gait belt, min assist. Weakness to left upper and lower extremities. Hearing aids to both ears, poor vision, wears dentures. Chair and bed alarm used. Patient impulsive, poor safety awareness. Worked with PT and OT. Toileting with min to stand by assist. Deborah care with stand by assist. Feeds self. Poor appetite.
[2016-10-23 20:05] VITALS: BP 152/69; PULSE 52; RESP 20; TEMP 98.2; O2SAT 97
[2016-10-23] MEDS: SIMVASTATIN 20 MG TABLET PO SCH (20:06)
--- NOTE | 2016-10-24 00:17 | NUR ---
Chart Check 24 hour chart check completed
--- NOTE | 2016-10-24 07:00 | NUR ---
SUMMARY NIMESH IS PLEASANT AND COOPERATIVE WITH ALL CARES. SHE DENIES SOB.SHE IS ON ROOM AIR.VS STABLE . PULSE IS 52 BPM.SHE AMBULATES AND TRANSFERS WITH FWW AND CONTACT GUARD OF ONE STAFF. HER GAIT IS NOT STEADY.SHE HAS BEEN CONTINENT OF BLADDER WITH HERSELF PREFORMING GA CARES AND CLOTHING MANAGEMENT. SHE REPORTS MILD DISCOMFORT BUT DENIES NEED FOR PAIN MEDS.
[2016-10-24 07:20] VITALS: BP 143/80; PULSE 70; RESP 20; TEMP 98; O2SAT 96
[2016-10-24] MEDS: LEVOTHYROXINE 125 MCG TABLET PO SCH (07:24)
[2016-10-24 07:45] VITALS: PULSE 70; RESP 20
[2016-10-24] MEDS: CALCIUM 600mg + VIT D 400 TABLET PO SCH ×2 (08:37→20:03)
[2016-10-24] MEDS: LUTEIN 20 MG PO SCH (08:37)
[2016-10-24] MEDS: AMLODIPINE 5 MG TABLET PO SCH (08:37)
[2016-10-24] MEDS: AMIODARONE 200 MG TABLET PO SCH ×2 (08:38→20:03)
[2016-10-24] MEDS: CALCITONIN NASAL SPRAY 200 UNITS NAS SCH (08:38)
[2016-10-24] MEDS: LISINOPRIL 40 MG TABLET PO SCH (08:38)
[2016-10-24] MEDS: DOCUSATE SODIUM 100 MG CAPSULE PO SCH ×2 (08:38→20:03)
[2016-10-24] MEDS: ASPIRIN 325 MG TABLET PO SCH (08:40)
--- NOTE | 2016-10-24 10:19 | NUR ---
CM CALLED AND SPOKE WITH BOTH SISTERS VIA CONFERENCE PHONE. THIS WORKER EXPLAINED PT IS READY TO DC FROM IRU, AND TEAM IS RECOMMENDING SUPERVISED ENVIRONMENT SUCH PLACEMENT OR HOME WITH INHOME SERVICES. THEY SAID THEY WANT TO USE PT'S SKILLED BENEFIT. THEY WANT: 1. [facility], 2. [facility], 3. [facility]. CALLED [facility] ([facility]), SPOKE WITH GUERDA. FAXED RECORDS. SHE WILL FOLLOW UP WITH THIS WORKER AFTER REVIEWAL. CALLED AIDEN AT ; THEY ARE FULL AND SHE DOES NOT EXPECT ANY OPENINGS THIS WEEK. CALLED ANITA AT [facility]; OPENED PORTAL AND SHE WILL FOLLOW UP WITH THIS WORKER AFTER REVIEWAL.
--- NOTE | 2016-10-24 13:56 | NUR ---
CM CALL FROM GUERDA WITH [facility], SHE SAID THEY CAN ACCEPT PT FOR SNU. THEY CAN COSTUME DRAPER PT TOMORROW AT 1 PM. CALLED PT'S DAUGHTERS (AMANDA AND ARACELIS) VIA CONFERENCE CALL; UPDATED THEM. THEY WERE PLEASED AND AGREEABLE TO THIS. THEY ALSO AGREED TO HAVE [facility] HOME [facility]SPORT SINCE THEY SAID THEY WERE NOT ABLE TO. REVIEWED IM LETTER WITH THEM AND VERBALLY SIGNED THEIR NAMES SINCE PT AND SPOUSE HAVE COGNITION ISSUES; THEY HAD NO QUESTIONS/CONCERNS ABOUT THIS. SPOKE WITH PT AND SPOUSE ABOUT DC TO SNU AT [facility] TOMORROW. PT STATED SHE LIVES RIGHT ACROSS THERE ([place] TO [address]) AND COULD GET ADDITIONAL THERAPY JUST BY CLEANING HER HOME. THIS WORKER EXPLAINED THE TEAM IS RECOMMENDING A SKILLED FACILITY FOR FURTHER PT/OT/NURSING. SHE AND SPOUSE DID NOT VOICE CONCERNS OR DISSENT.
[2016-10-24 16:19] VITALS: BP 146/68; PULSE 44; RESP 16; TEMP 98.1; O2SAT 99
--- NOTE | 2016-10-24 18:03 | NUR ---
Shift Summary Pt is in the dining room with her . Ambulates well with assist of 1, FWW, and gait belt. She does need cues at times. Has been continent this shift, able to manage her own clothing and cares. Ate well for meals, did not need assist with her tray, ambulates to the dining room. She does have some delays in her responses at times. Refused to have a bath this shift. Worked well with therapy this shift. When in bed or the chair the alarm is in and call light is within reach. Addendum: 10/24/16 at 1807 by YESICA VALERIO RN She is hard of hearing, wears hearing aides to bilateral ears.
[2016-10-24] MEDS: SIMVASTATIN 20 MG TABLET PO SCH (20:03)
[2016-10-24 20:19] VITALS: BP 160/95; PULSE 49; RESP 16; TEMP 97.6
--- NOTE | 2016-10-24 20:39 | PNPDOC ---
IRU Subjective Date DATE: 10/24/16 TIME: 20:38 Subjective Pt working with staff, some confusion with safety plan. IRU Objective Vital Signs Vital signs Vital Signs Date Time Temp Pulse Resp B/P Pulse Ox O2 Delivery O2 Flow Rate FiO2 10/24/16 16:19 98.1 44 16 146/68 99 Room Air Telemetry Rhythm: Sinus Rhythm, Bundle Branch Block Height (Feet): 5 Height (Inches): 3.00 Weight (Kilograms): 55.700 General General Appearance: Alert Respiratory (Brief) Respiratory: FOUND: clear all guzman, equal bilaterally Cardiovascular (Brief) Cardiac: FOUND: regular rate, regular rhythm Capillary Refill: <2 sec Assessment & Plan Problems: (1) Closed fracture of T11 vertebra Status: Acute Qualifiers: Encounter type: initial encounter Fracture morphology: wedge compression Qualified Codes: S22.080A - Wedge compression fracture of t11-T12 vertebra, initial encounter for closed fracture Assessment & Plan: PT and OT working with pt to increase stamina and strength. (2) Falls Status: Acute Assessment & Plan: Safety discussed and pt reminded frequently. (3) Self-care deficit for hygiene Status: Acute Assessment & Plan: OT working with pt to improve. (4) Orthostatic hypotension Status: Resolved Assessment & Plan: medical management Code Status Full Code Interventions to Obtain Goals PT Treatment Plan: Therapeutic Exercise, Gait Training, Functional Activities , Patient/Family Education, Balance/Proprioception OT Treatment Plan: ADL's (basic care), Cognitive Skills Develop., Ther. Exercise for ADL's, UE Functional Training, Balance Training, Pt./Family Education, IADL's Hospital Course Summary Disclaimer The hospital course summary below is not to be considered part of the above Progress Note. Hospital Course Summary 10/19/16 Decrease dose of beta kary to Metoprolol 12.5mg BID to avoid further bradycardia. Given that heart rate was in the 40s consistently. Heart rate this afternoon was 59. Continue to monitor blood pressure closely, continue on Lisinopril Otherwise, medically, patient is doing well. Continue with PT/OT for ongoing strengthening and improve function. . 10/22/16 BP continues to be elevated. Will keep Metoprolol at 12.5 BID due to intermittent bradycardia. Will add Norvasc 5 mg daily. Continue to monitor in light of recent CVA. Otherwise, medically, patient is doing well. Questionable ?dementia. CARMELA diaz ordered Continue with PT/OT for ongoing strengthening and improve function. EKTA CARDONA MD Oct 24, 2016 20:39
--- NOTE | 2016-10-24 21:53 | PNPDOC ---
Subjective Date DATE: 10/24/16 TIME: 21:48 Subjective Mrs. Nguyen denied any concerns this evening other than some minor back pain. She denied dyspnea, nausea, or palpitations. Her appetite is good and she reports ambulating with a walker. Objective Vital Signs Vital signs Vital Signs Date Time Temp Pulse Resp B/P Pulse Ox O2 Delivery O2 Flow Rate FiO2 10/24/16 16:19 98.1 44 16 146/68 99 Room Air NAD, alert, vague responses but seems hard of hearing Respirations nonlabored, breath sounds clear Regular rhythm Abdomen soft and nontender Without peripheral edema Telemetry Rhythm: Sinus Rhythm, Bundle Branch Block Height (Feet): 5 Height (Inches): 3.00 Weight (Kilograms): 55.700 Assessment & Plan Problems: (1) Closed fracture of T11 vertebra Status: Acute Qualifiers: Encounter type: initial encounter Fracture morphology: wedge compression Qualified Codes: S22.080A - Wedge compression fracture of t11-T12 vertebra, initial encounter for closed fracture (2) History of CVA (cerebrovascular accident) Status: Chronic Assessment & Plan: On 09/10/16 (3) Status post carotid endarterectomy Status: Chronic Assessment & Plan: 09/28/16- Dr Elizabeth (4) Dyslipidemia Status: Chronic (5) HTN (hypertension) Status: Chronic (6) Hypothyroidism Status: Chronic (7) Macular degeneration Status: Chronic (8) History of cataract Status: Resolved Assessment Blood pressure is acceptable, amlodipine added 2 days ago. Discharge anticipated tomorrow-will need outpatient follow-up with Dr. Reyes for reassessment of blood pressure and anemia. Plan/Intensity of Service Code Status Full Code Hospital Course Summary Disclaimer The hospital course summary below is not to be considered part of the above Progress Note. Hospital Course Summary 10/19/16 Decrease dose of beta kary to Metoprolol 12.5mg BID to avoid further bradycardia. Given that heart rate was in the 40s consistently. Heart rate this afternoon was 59. Continue to monitor blood pressure closely, continue on Lisinopril Otherwise, medically, patient is doing well. Continue with PT/OT for ongoing strengthening and improve function. . 10/22/16 BP continues to be elevated. Will keep Metoprolol at 12.5 BID due to intermittent bradycardia. Will add Norvasc 5 mg daily. Continue to monitor in light of recent CVA. Otherwise, medically, patient is doing well. Questionable ?dementia. CARMELA diaz ordered Continue with PT/OT for ongoing strengthening and improve function. EVANGELINA CAPELLAN MD Oct 24, 2016 21:51
--- NOTE | 2016-10-24 23:54 | NUR ---
Chart Check 24 hour chart check completed
[2016-10-25] MEDS: LEVOTHYROXINE 125 MCG TABLET PO SCH (06:31)
--- NOTE | 2016-10-25 07:16 | NUR ---
Summary arrived on shift patient patient was sitting up in recliner, patient was cooperative with assessment and scheduled medications. Patient denied pain or discomfort. Transferred with 1 assist with FWW. impulsive at times. Patient does not use call light. Continent of bladder. no bowel movement this shift. no prns given. patient was cooperative with bilat SCDs. Patient is currently awake in recliner with chair alarm in place
[2016-10-25 08:00] VITALS: PULSE 49; RESP 16
[2016-10-25 09:03] VITALS: BP 105/60; PULSE 48; RESP 14; TEMP 96.4; O2SAT 95
[2016-10-25] MEDS: LUTEIN 20 MG PO SCH (09:05)
[2016-10-25] MEDS: DOCUSATE SODIUM 100 MG CAPSULE PO SCH (09:05)
[2016-10-25] MEDS: CALCIUM 600mg + VIT D 400 TABLET PO SCH (09:05)
[2016-10-25] MEDS: CALCITONIN NASAL SPRAY 200 UNITS NAS SCH (09:06)
[2016-10-25] MEDS: LISINOPRIL 40 MG TABLET PO SCH (09:17)
[2016-10-25] MEDS: ASPIRIN 325 MG TABLET PO SCH (09:17)
[2016-10-25] MEDS: AMLODIPINE 5 MG TABLET PO SCH (09:18)
[2016-10-25] MEDS: AMIODARONE 200 MG TABLET PO SCH (09:27)
--- NOTE | 2016-10-25 09:37 | NUR ---
PROVIDER NOTIFICATION BRADYCARDIA NOTIFIED DWAINE JULIEN OF BLOOD PRESSURE AND HR IS 47-48. ORDERS TO HOLD METOPROLOL THIS AM AND TO GIVE OTHER CARDIAC MEDS ORDERED. ORDERS IMPLEMENTED.
[2016-10-25] MEDS ORDERED: HYDR-4246 PO (09:56)
[2016-10-25] MEDS ORDERED: AMLO5TAB2 PO (09:56)
[2016-10-25] MEDS ORDERED: CALC3.7S NAS (09:56)
[2016-10-25] MEDS ORDERED: SIMV20TA2 PO (09:56)
[2016-10-25] MEDS ORDERED: ASPI325T PO (09:56)
[2016-10-25] MEDS ORDERED: METO25TA6 PO (09:56)
--- NOTE | 2016-10-25 10:03 | PDOCECFAO ---
Admission Orders Admission Orders Admit to: Alf Allergies: Coded Allergies: morphine (Verified Adverse Reaction, Mild, VOMITS, 09/26/15) Admitting Diagnosis T-11 Non Displaced Acute Inplate Fracture Admitting Physician Fidencio Flores MD Code Status Full Code Anticipated LOS: 30 days or less Rehab Potential: Fair Rehab Prognosis: Fair Wound/Incision Care: N/A Evaluations/Treat: PT, OT Alf Certification I certify that SNF services are required to be given on an Inpatient basis because of the patients need for jail care on a continuing basis for the condition(s) for which he/she received inpatient hospital services prior to his/her transfer to the SNF. SNF inpatient care is necessary for the following reasons Other (PT,OT) DWAINE JULIEN APRN Oct 25, 2016 10:03
--- NOTE | 2016-10-25 13:30 | NUR ---
CM TIME OUT COMPLETED PRIOR TO DC. CALLED GUERDA AT [facility]; ASKED IF SHE RECEIVED THE ORDERS AND IF THERE WAS ANYTHING FURTHER SHE NEEDED FROM THIS WORKER. SHE SAID SHE WILL CALL BACK IF THERE IS SOMETHING ELSE SHE NEEDS.
--- NOTE | 2016-10-25 15:22 | NUR ---
Shift summary/discharge Patient ambulating with FWW, gait belt, min assist. Patient will abandon walker at times and need verbal cues to use walker. Continent of bowel and bladder this shift, wears pull ups. Min assist for upper and lower extremity dressing. Wears dentures, hearing aids. Poor vision. Alert to self. Patient discharged to [facility] in [place]. Discussed patient discharge instructions with patient and daughters. Patient discharged at 1313 in good condition and transported to recieving facility in their facility vehicle with her belongings. Daughters were present upon discharge. Report called to Ayaka.
--- NOTE | 2016-10-26 16:39 | NUR ---
CM FOLLOW UP CALL LEFT MESSAGE WITH [facility].
--- NOTE | 2016-10-29 15:03 | DSPDOC ---
General Date Date DATE: 10/29/16 TIME: 15:01 Attending Physician Fidencio Cardona MD Admitting Physician Fidencio Cardona MD Consulting Physician Don Mojica MD Admitting Diagnosis T11 vertebral fracture Discharge Diagnosis Ischemic CVA-09/10/16 Carotid stenosis Dyslipidemia Hypertension Hypothyroidism Atrial fibrillation Macular degeneration Myopathy of chronic disease. History of Present Illness 86 yo female with new onset T11 vertebral fracture after a fall at home. Pt has had a month of sig health issues starting in early september with CVA. She was hospitalized from 09/10 to 09/28 in Rehab from the stroke. Then had CEA performed for right carotid occlusion. She then was readmitted with new onset Afib post op and was not discharged until 10/13. She was home less than 48 hours prior to breaking T11 in fall. She is unable to manage pain and cannot provide her own ADL's due to pain. Hospital Course 10/19/16 Decrease dose of beta kary to Metoprolol 12.5mg BID to avoid further bradycardia. Given that heart rate was in the 40s consistently. Heart rate this afternoon was 59. Continue to monitor blood pressure closely, continue on Lisinopril Otherwise, medically, patient is doing well. Continue with PT/OT for ongoing strengthening and improve function. . 10/22/16 BP continues to be elevated. Will keep Metoprolol at 12.5 BID due to intermittent bradycardia. Will add Norvasc 5 mg daily. Continue to monitor in light of recent CVA. Otherwise, medically, patient is doing well. Questionable ?dementia. CARMELA diaz ordered Continue with PT/OT for ongoing strengthening and improve function. 10/25/16 Patient not stable for discharge home, is appropriate for skilled facility, therefore being discharged to SNU. Improvement in strength and stamina, having difficulty with safety issues. Recommend continuing physical therapy. Problems: (1) Closed fracture of T11 vertebra Status: Acute (2) History of CVA (cerebrovascular accident) Status: Chronic Assessment & Plan: On 09/10/16 (3) Status post carotid endarterectomy Status: Chronic Assessment & Plan: 09/28/16- Dr Elizabeth (4) Dyslipidemia Status: Chronic (5) HTN (hypertension) Status: Chronic (6) Hypothyroidism Status: Chronic (7) Macular degeneration Status: Chronic (8) History of cataract Status: Resolved Code Status Full Code Home Meds Active Scripts Calcitonin,[place],Synthetic (Miacalcin) 30 [place]/3.7 Ml [place], 1 SPRAY BENJAMIN DAILY for 30 Days, ML Prov:DWAINE JULIEN APRN 10/25/16 Hydrocodone/Acetaminophen ([place] 5-325 Tablet) 5-325 Tablet, 1-2 TAB PO Q4H Y for PAIN, #30 TAB Prov:DWAINE JULIEN APRN 10/25/16 Aspirin (Aspirin) 325 Mg Tablet, 325 MG PO DAILY for 30 Days, #30 TAB Prov:DWAINE JULIEN APRN 10/25/16 Simvastatin (Zocor) 20 Mg Tablet, 20 MG PO HS for 30 Days, #30 TAB Prov:DWAINE JULIEN APRN 10/25/16 Metoprolol Tartrate (Metoprolol Tartrate) 25 Mg Tablet, 12.5 MG PO BIDWM for 30 Days, #30 TAB Hold if pulse is less than 50 Prov:DWAINE JULIEN APRN 10/25/16 Amlodipine Besylate (Amlodipine Besylate) 5 Mg Tablet, 5 MG PO DAILY, #30 TAB Prov:DWAINE JULIEN APRN 10/25/16 Reported Medications Lisinopril (Lisinopril) 20 Mg Tablet, 20 MG PO DAILY 10/15/16 Clopidogrel Bisulfate (Clopidogrel) 75 Mg Tablet, 75 MG PO DAILY 10/15/16 Docusate Sodium (Docusate Sodium) 100 Mg Capsule, 100 MG PO DAILY 10/15/16 Lutein (Lutein) 20 Mg Tablet, 20 MG PO DAILY 10/15/16 Amiodarone HCl (Amiodarone HCl) 200 Mg Tablet, 200 MG PO BID 10/15/16 Levothyroxine Sodium (Levothyroxine Sodium) 125 Mcg Tablet, 125 MCG PO ACB 10/15/16 Discontinued Reported Medications Metoprolol Succinate (Metoprolol Succinate) 25 Mg Tab.er.24h, 25 MG PO DAILY 10/15/16 Face to Face Encounter I met with patient on the day of dismissal and discussed follow up appointments , medications, and safety plan. Discharge Disposition [facility] facility FIDENCIO CARDONA MD Oct 29, 2016 15:03
== END 2016-10-25 13:13 | DRG 561 ==
LOC: ED 10:20 → EDHOLD 15:13
PROVIDERS: ADMIT Family Medicine; ATTEND Family Medicine
PROC: F07Z9FZ Gait Training/Functional Ambulation Treatment using Assistive, Adaptive, Supportive or Protective Equipment (ICD-10-PCS; principal; 2016-10-15)
PROC: F07M6ZZ Therapeutic Exercise Treatment of Musculoskeletal System - Whole Body (ICD-10-PCS; 2016-10-15)
PROC: F08Z4ZZ Home Management Treatment (ICD-10-PCS; 2016-10-15)
DX: S22.080D Wedge compression fracture of T11-T12 vertebra, subsequent encounter for fracture with routine healing (principal); G72.9 Myopathy, unspecified; I95.1 Orthostatic hypotension; I10 Essential (primary) hypertension; E78.5 Hyperlipidemia, unspecified; I48.91 Unspecified atrial fibrillation; I65.21 Occlusion and stenosis of right carotid artery; E03.9 Hypothyroidism, unspecified; H35.30 Unspecified macular degeneration; Z86.73 Personal history of transient ischemic attack (TIA), and cerebral infarction without residual deficits; W19.XXXD Unspecified fall, subsequent encounter
CPT/HCPCS: 36415; 80048; 85025; 96372

== ENCOUNTER 2017-07-25 11:27 | Inpatient (IN) ==
[2017-07-25] MEDS ORDERED: FentaNYL 100 MCG/2 ML INJECTION IVP ONE ×3 (11:40→17:10)
--- NOTE | 2017-07-25 11:40 | Emergency Department Report ---
General Adult HPI - General Stated complaint: fall Time Seen by Provider: 07/25/17 11:37 Source: patient, EMS Mode of arrival: EMS Limitations: other (Dementia) - History of Present Illness HPI narrative: 87-year-old female presents to the emergency department with a chief complaint of a mechanical fall resulting in a left hip injury. Patient was at home earlier today when her walker took off and she fell landing on her left hip. She has moderate dull aching pain in the left hip which improves with fentanyl from EMS and increases with movement. No other complaints or associated symptoms. She was at home when her symptoms began. Symptoms have been persistent in nature since onset. Patient has dementia and is at baseline mental status. History is limited secondary to dementia. - Related Data Home Medications Medication Instructions Recorded Confirmed Clopidogrel Bisulfate [Clopidogrel] 75 mg PO DAILY #0 10/15/16 07/25/17 Lutein 20 mg PO DAILY #0 10/15/16 07/25/17 Amiodarone [Pacerone] 200 mg PO BID 07/25/17 07/25/17 Lisinopril [Prinivil] 20 mg PO DAILY 07/25/17 07/25/17 Mirtazapine [Remeron] 15 mg PO HS 07/25/17 07/25/17 Previous Rx's Medication Instructions Recorded Simvastatin [Zocor] 20 mg PO HS 30 Days #30 tab 10/25/16 Allergies Allergy/AdvReac Type Severity Reaction Status Date / Time morphine AdvReac Mild VOMITS Verified 09/26/15 08:04 Review of Systems Limitations: ROS unobtainable due to patient's medical condition PFS Patient Stated Medical History Cerebrovascular Accident Yes Macular Degeneration Yes Cardiac Arrhythmia Yes: AFib Hypertension Yes Other Cardiology Yes: Carotid Stenosis Surgical History: R CEA, Cataract, Breast Biopsy Family History: Reviewed and Non-contributory. - Social History Smoking status: Never smoker Substance use type: does not use Alcohol intake frequency: does not drink Physical Exam - Limitations Limitations: no limitations - General General appearance: alert, in no apparent distress - Normal Exams: Head:: Normocephalic without trauma Eyes:: Pupils are PERRLA w/ EOMI, No scleral icterus, irritation, or foreign bodies noted ENMT:: No facial trauma, nasal exudates, pharyngeal erythema, or exudates are noted Dental: No fractured, loose, or missing teeth noted Neck:: Full range of motion, without adenopathy, JVD, bruits or thyromegaly Chest/Respirations:: Clear all guzman, with good airflow, and symmetry bilaterally Cardiovascular:: Regular rate and rhythm, without murmur or gallop, Pulses 2+ all extremities, capillary refill, <2 seconds all extremities Abdomen:: Bowel sounds positive, soft, non-tender, non-distended, no hepatosplenomegaly, masses or bruits noted Lymphatic:: No lymphadenopathy, or lymphedema noted Musculoskeletal:: No tenderness (L HIP - Decreased ROM secondary to pain. Pulses intact. sensation intact. cap refill < 2. Generalized tenderness to palpation. No other tenderness to palpation in LLE. No erythema or edema. All other extremities are unremarkable. ), or deformity noted (No midline tenderness or deformity to the cervical/thoracic/lumbar spine. ), good range of motion, all extremities Integumentary:: No rashes, hives, or bruising noted, hair and nails, without abnormality Neurological:: Patient is alert, and oriented, cranial nerves, motor/sensory/ cerebellar, exams w/o gross deficits, to observation Psychiatric:: Patient exhibits, appropriate attention, emotion and affect Course Vital Signs Temperature 98.3 F 07/25/17 11:42 Pulse Rate 52 L 07/25/17 11:42 Respiratory Rate 20 07/25/17 11:42 Blood Pressure 206/89 H 07/25/17 11:42 Pulse Oximetry 97 07/25/17 11:42 Temperature 97.0 F 07/26/17 04:00 Pulse Rate 47 L 07/26/17 04:00 Respiratory Rate 16 07/26/17 04:00 Blood Pressure 130/69 07/26/17 04:00 Pulse Oximetry 96 07/26/17 04:00 Medical Decision Making - [facility] Narrative Medical decision making narrative: Patient was ordered analgesic pain medication at 1140 immediately after arrival to the emergency department. Patient's initial x-ray suggested potential femoral neck fracture but this cannot be confirmed and CT is recommended. CT is nondiagnostic an MRI is recommended. The next available MRI slot isn't until 4 PM today. We will be forced to wait until this time to obtain the MRI. Patient will be kept comfortable with analgesic pain medication in the interim. Patient and family are in agreement with the current plan of management. Patient is discussed with Dr. Hathaway of orthopedic surgery and recommendations are followed. Patient is admitted to the service of the hospitalist Dr. Ellis after discussion with her. Patient is admitted to the hospital in improved condition. No further orders. UA is pending at time of admission and will be followed by the hospitalist. Delay in admission to the hospitalist service was due to the fact that MRI was not available until 4 PM in the afternoon. - Differential Diagnosis Sprain, strain, fracture, dislocation - Lab Data Result diagrams: 07/26/17 04:23 07/26/17 04:23 - Radiology Data MRI L HIP: Impression: Nondisplaced intertrochanteric left femoral fracture. CT L HIP: Cannot exclude fracture. Recommend MRI. X-ray L HIP: Impression: Possible left femoral neck fracture. Recommend CT or MRI for further evaluation. CXR: No acute processes. CT HEAD / C-spine: Negative. - EKG Data EKG #1 EKG results narrative: Sinus bradycardia with first-degree AV block. Nonspecific ST changes. No STEMI. 51 bpm. Disposition Clinical Impression: Hip fracture requiring operative repair Qualifiers: Encounter type: initial encounter Fracture type: closed Laterality: left Qualified Code(s): S72.002A - Fracture of unspecified part of neck of left femur , initial encounter for closed fracture Disposition: 02 To [facility] Acute Care Condition: Stable Time of Disposition: 17:14 (Admit. Dr. Ellis. ) - Seen By: physician
--- OUTSIDE RECORDS SUMMARY | 2017-07-25 12:16 | External Medical Summary | Referral Summary ---
:1930 [facility] Address [address] [place] [address] [place] [address] Care Team Providers Name Role Phone No PCP, States Primary Care Physician Encounter VC Date(s): 08/30/15 - 08/30/15 [facility] [place] [phone] Discharge Diagnosis: History of recent fall Discharge Disposition: 01-Home or Self Care Attending Physician: Greg Cody MD Admitting Physician: Greg Cody MD Vital Signs Most recent to oldest [Reference Range]: 1 Temperature Tympanic [36.6-38.1 degC] 37.7 degC (08/30/15 10:32 AM) Peripheral Pulse Rate [60-100 bpm] 83 bpm (08/30/15 10:32 AM) Blood Pressure [90-140/60-90 mmHg] 120/90 mmHg (08/30/15 10:32 AM) SpO2 98 % (08/30/15 10:32 AM) Problem List No data available for this section Allergies, Adverse Reactions, Alerts Substance Reaction Severity Status morphine Active Medications No Known Medications Results Hematology Most recent to oldest [Reference Range]: 1 WBC [5.0-10.0 10*3/uL] 7.2 10*3/uL (08/30/15 12:00 PM) RBC [3.70-5.20] 4.30 (08/30/15 12:00 PM) Hgb [12.0-16.0 gm/dL] 12.7 gm/dL (08/30/15 12:00 PM) Hct [37.0-47.0 %] 38.5 % (08/30/15 12:00 PM) MCV [80.0-96.0 fL] 89.5 fL (08/30/15 12:00 PM) MCH [26.0-34.0 pg] 29.5 pg (08/30/15 12:00 PM) MCHC [32.0-36.0 gm/dL] 33.0 gm/dL (08/30/15 12:00 PM) RDW [0.0-14.5 %] 13.1 % (08/30/15 12:00 PM) Platelet [150-400 10*3/uL] 275 10*3/uL (08/30/15 12:00 PM) MPV [8.8-14.8 fL] 10.3 fL (08/30/15:00 PM) Neutrophils [50-70 %] 76 % *HI* (08/30/15:00 PM) Lymphocytes [20-40 %] 11 % *LOW* (08/30/15:00 PM) Monocytes [4-8 %] 13 % *HI* (08/30/15 12:00 PM) Eosinophils [0-6 %] 1 % (08/30/15 12:00 PM) Basophils [0-2 %] 0 % (08/30/15 12:00 PM) Neutro Absolute [2.50-7.00 10*3] 5.47 10*3 (08/30/15 12:00 PM) Lymph Absolute [1.00-4.00 10*3] 0.76 10*3 *LOW* (08/30/15 12:00 PM) Bandera Absolute [0.20-0.80 10*3] 0.94 10*3 *HI* (08/30/15 12:00 PM) Eos Absolute [0.00-0.60 10*3] 0.04 10*3 (08/30/15 12:00 PM) Baso Absolute [0.00-0.30] 0.01 (08/30/15 12:00 PM) Urinalysis Most recent to oldest [Reference Range]: 1 UA Color Dk Yellow (08/30/15 12:08 PM) UA Appear Clear (08/30/15 12:08 PM) UA pH [5.0-8.0] 5.5 (08/30/15 12:08 PM) UA Leuk Est [Negative] Negative (08/30/15 12:08 PM) UA Nitrite [Negative] Negative (08/30/15 12:08 PM) UA Protein [Negative] Trace *ABN* (08/30/15 12:08 PM) UA Glucose [Negative] Negative (08/30/15 12:08 PM) UA Ketones [Negative] Trace *ABN* (08/30/15 12:08 PM) UA Urobilinogen [<=1.0 mg/dL] 1.0 mg/dL (08/30/15 12:08 PM) UA Bili [Negative] Negative (08/30/15 12:08 PM) UA Blood [Negative] Pos 1+ *ABN* (08/30/15 12:08 PM) UA Spec Grav [1.003-1.030] 1.025 (08/30/15 12:08 PM) Type Clean Catch (08/30/15 [...] effusion. There was a comment of a compr ession deformity althoughclinically this is probably old. Her urinalysis did include someminor proteinuriaand red blood cells. However no acute infection or acute processes identified contributing to her weakness and recent fall. We were joined by her other daughter and son-in-law afterthe labs came back. We discussed the social situation and she is certainly at increased riskof recurrent falls. I suggested that they ma y want to considerassisted living placement. We will also try to look into home health forphysical therapy/strengthening. She needs to get established with a primary care physician for ongoing c are. We discussed importance of fall prevention totry to prevent further injury. Alvaton for future follow-upwould include follow-up on theabnormalities on urinalysis, and possible evaluation for dementia. Paola Danielson wascontacted forcase management.
--- OUTSIDE RECORDS SUMMARY | 2017-07-25 12:16 | External Medical Summary | Referral Summary ---
:1930 Author Organization [facility] [place] [address] Care Team Providers Name Role Phone Barry Reyes Primary Care Physician Encounter VC Date(s): 09/14/15 - 09/14/15 [facility] [place] [phone] [place] Discharge Diagnosis: Impaired mobility and ADLs Discharge Diagnosis: Premature contractions, supraventricular Discharge Disposition: 01-Home or Self Care Attending Physician: Barry Reyes DO Admitting Physician: Barry Reyes DO Vital Signs Most recent to oldest [Reference Range]: 1 Temperature Tympanic [36.6-38.1 degC] 38 degC (09/14/15 2:31 PM) Peripheral Pulse Rate [60-100 bpm] 76 bpm (09/14/15 2:31 PM) Blood Pressure [90-140/60-90 mmHg] 148/82 mmHg *HI* (09/14/15 2:31 PM) Problem List No data available for this section Allergies, Adverse Reactions, Alerts Substance Reaction Severity Status morphine Active Medications Lasix 20 mg oral tablet 20 mg 1 tabs, Oral, Daily, # 30 tabs, 0 Refill(s), Pharmacy: [facility] [id number], 1 tabs OralDaily Start Date: 09/14/15 Status: Orderedpotassium chloride 10 mEq oral tablet, extended release 10 mEq 1 tabs, Oral, Daily, # 30 tabs, 0 Refill(s), Pharmacy: [facility] [id number], 1 tabs Oral Daily,x30 days Start Date: 09/14/15 Stop Date: 10/14/15 Status: Ordered Results Chemistry Most recent to oldest [Reference Range]: 1 Sodium Lvl [135-144 mEq/L] 133 mEq/L *LOW* (09/14/15 3:52 PM) Potassium Lvl [3.5-5.2 mEq/L] 4.1 mEq/L (09/14/15 3:52 PM) Chloride [99-111 mEq/L] 100 mEq/L (09/14/15 3:52 PM) CO2 [22-31 mEq/L] 24 mEq/L (09/14/15 3:52 PM) AGAP [3-20] 9 (09/14/15 3:52 PM) BUN [10-20 mg/dL] 17 mg/dL (09/14/15 3:52 PM) Glucose Lvl [70-99 mg/dL] 106 mg/dL *HI* (09/14/15 3:52 PM) Creatinine Lvl [0.57-1.11 mg/dL] 0.86 mg/dL (09/14/15 3:52 PM) eGFR [>60 mL/min] >60 mL/min 1 (09/14/15 3:52 PM) Calcium Lvl [8.9-10.5 mg/dL] 8.7 mg/dL *LOW* (09/14/15 3:52 PM) Albumin Lvl [3.4-4.8 gm/dL] 3.7 gm/dL (09/14/15 3:52 PM) Total Protein [6.2-8.1 gm/dL] 7.0 gm/dL (09/14/15 3:52 PM) Globulin [1.8-4.0 gm/dL] 3.3 gm/dL (09/14/15 3:52 PM) ALT [0-55 U/L] 18 U/L (09/14/15 3:52 PM) AST [5-34 U/L] 21 U/L (09/14/15 3:52 PM) Alk Phos [40-150 U/L] 95 U/L (09/14/15 3:52 PM) Bili Total [0.2-1.2 mg/dL] 0.7 mg/dL (09/14/15 3:52 PM) BNP [0-99 pg/mL] 198 pg/mL *HI* (09/14/15 3:52 PM) T4 Free [0.7-1.5 ng/dL] 1.0 ng/dL (3/9/16 3:52 PM) TSH with Reflex Free T4 [0.35-4.94] 5.43 *HI* (09/14/15 3:52 PM) 1Result Comment: Multiply eGFR results by 1.21 for race. Immunizations No data available for this section Procedures Procedure Date Related Diagnosis Body Site Cataract extraction and insertion of intraocular lens Social History Social History Type Response Smoking Status Never smoker Assessment and Plan Extracted from: Title: New patient, dependent edema, decreased Author: Barry Reyes DO Date: ADLs Assessment/Plan Dependent edema 1. Recommended low-salt diet. 2. Was ordered today to assess her renal function as well as to rule out CHF. 3. Was started on Lasix 20 mg daily in addition to potassium 10 mEq daily. 4. Follow-up in one week for reevaluation, sooner if worsening symptoms. Ordered: B-Type Natriuretic Peptide Comprehensive Metabolic Panel Office Visit Level 5 Est 17904 TSH with Reflex Free T4 Impaired mobility and ADLs 1. Recommended home health evaluation. 2. I had a long discussion with the family members, given that she is disheveled and it appears that her is not able to help her with her ADLs , it may be time to look into whether she qualif ies to be in an assisted living or jail facility. The daughters will discuss this with the son who is the DPOA. 3. Over 50 minutes were spent [id number] with this patient and her family. Greater than 50 percent of the time was spent with counseling regarding the patient's care. Ordered: Office Visit Level 5 Est 43940 Premature contractions, supraventricular 1. EKG consistent with normal sinus rhythm with occasional supraventricular premature contraction. No signs of ischemia or recent cardiac consult. Ordered: Office Visit Level 5 Est 33680 Orders: furosemide, 20 mg 1 tabs, Oral, Daily, # 30 tabs, 0 Refill(s), Pharmacy: [facility] [id number], 1 tabs Oral Daily potassium chloride, 10 mEq 1 tabs, Oral, Daily, # 30 tabs, 0 Refill(s), Pharmacy: [facility] [id number], 1 tabs Oral Daily,x30 days
--- OUTSIDE RECORDS SUMMARY | 2017-07-25 12:16 | External Medical Summary | Referral Summary ---
:1930 Author Organization [facility] [place] [address] Care Team Providers Name Role Phone Barry Reyes Primary Care Physician Encounter VC Date(s): 05/10/16 - 05/10/16 [facility] [place] [place] [address]- Discharge Diagnosis: HTN (hypertension) Discharge Disposition: 01-Home or Self Care Attending Physician: Barry Reyes DO Admitting Physician: Barry Reyes DO Vital Signs Most recent to oldest [Reference Range]: 1 Temperature Tympanic [36.6-38.1 degC] 36.3 degC *LOW* (05/10/16 1:07 PM) Peripheral Pulse Rate [60-100 bpm] 68 bpm (05/10/16 1:07 PM) Blood Pressure [90-140/60-90 mmHg] 130/62 mmHg (05/10/16 1:07 PM) Problem List Condition Effective Dates Status Health Status Informant Wet senile macular Active degeneration(Confirmed) Adult onset hypothyroidism(Confirmed) Active Allergies, Adverse Reactions, Alerts Substance Reaction Severity Status morphine Active Medications amLODIPine 5 mg oral tablet 5 mg 1 tabs, Oral, Daily, # 90 tabs, 3 Refill(s), Pharmacy: [facility] [id number], 1 tabs Oral Daily Start Date: 05/10/16 Status: Orderedlevothyroxine 25 mcg (0.025 mg) oral tablet See Instructions, TAKE 1 TABLET BY MOUTH DAILY, # 30 tabs, eRx: [facility] [id number], TAKE 1 TABLET BY MOUTH DAILY Start Date: 11/28/15 Status: Orderedlevothyroxine 25 mcg (0.025 mg) oral tablet 25 mcg 1 tabs, Oral, Daily, # 90 tabs, 2 Refill(s), Pharmacy: [facility] [id number], 1 tabs Oral Daily Start Date: 01/03/16 Status: Orderedlutein Oral, Daily, 0 Refill(s) Start Date: 04/26/16 [...] reevaluation. Ordered: Office Visit Level 3 Est 27312
--- OUTSIDE RECORDS SUMMARY | 2017-07-25 12:16 | External Medical Summary | Referral Summary ---
:1930 Author Organization [facility] [place] [place] [address] Care Team Providers Name Role Phone Barry Reyes Primary Care Physician Encounter VC Date(s): 09/19/15 - 09/19/15 [facility] [place] [phone] [place] Discharge Diagnosis: Dependent edema Discharge Diagnosis: Stasis dermatitis Discharge Diagnosis: Adult onset hypothyroidism Discharge Disposition: 01-Home or Self Care Attending Physician: Barry Reyes DO Admitting Physician: Barry Reyes DO Vital Signs Most recent to oldest [Reference Range]: 1 Temperature Tympanic [36.6-38.1 degC] 37 degC (09/19/15 11:08 AM) Peripheral Pulse Rate [60-100 bpm] 76 bpm (09/19/15 11:08 AM) Blood Pressure [90-140/60-90 mmHg] 120/90 mmHg (09/19/15 11:08 AM) SpO2 98 % (09/19/15 11:08 AM) Problem List No data available for this section Allergies, Adverse Reactions, Alerts Substance Reaction Severity Status morphine Active Medications Keflex 500 mg oral capsule 500 mg 1 caps, Oral, BID, X 7 days, # 14 caps, 0 Refill(s), Pharmacy: [facility] [id number], 1 caps Oral BID,x7 days Start Date: 09/16/15 Stop Date: 09/23/15 Status: OrderedLasix 20 mg oral tablet 20 mg 1 tabs, Oral, Daily, # 30 tabs, 0 Refill(s), Pharmacy: [facility] [id number], 1 tabs OralDaily Start Date: 09/14/15 Status: Orderedlevothyroxine 25 mcg (0.025 mg) oral tablet 25 mcg 1 tabs, Oral, Daily, # 30 tabs, 2 Refill(s), Pharmacy: [facility] [id number], 1 tabs Oral Daily Start Date: 09/15/15 Status: Orderedpotassium chloride 10 mEq oral tablet, extended release 10 mEq 1 tabs, Oral, Daily, # 30 tabs, 0 Refill(s), Pharmacy: [facility] [id number], 1 tabs Oral Daily,x30 days Start Date: [...] of fluids in your bodytissues. Edema is somewhatdependent on gravity to pull the fluid to [...] often. This gets rid of fluid and reduce s swelling, but diuretics can have side effects. [...] Released: 06/24/2006 Document Revised: 11/08/2014 Document Reviewed: 04/16/2014 [facility] Patient Information 2015 [facility], [facility]. Family Medicine Compression Stockings Compression stockings are [...] not bleach your stockings. They may be air-dried or dried in the dryer on low [...] Released: 04/21/2010 Document Revised: 09/15/2012 Document Reviewed: 04/21/2010 [facility] Patient Information 2015 [employer]. Hypothyroidism Hypothyroidism is a disorder of the thyroid. The thyroid is a large gland that is located in the lower front of the neck. The thyroid releases hormones that control how the body works. With hypothyroidi sm, the thyroid does not make enough of [...] need to have blood tests regularly so roslyn t your health care provider can watch your [...] Released: 06/24/2006 Document Revised: 04/12/2015 Document Reviewed: 11/09/2014 [facility] Patient Information 2014 [employer]. No follow up information was provided. Extracted from: Title: Dependent edema, stasis dermatitis, Author: Barry Reyes DO Date: hypothyroidism Assessment/Plan Adult onset hypothyroidism, Other specified hypothyroidism 1. Review of her labs demonstrate her TSH being slightly elevated. 2. She was started on levothyroxine at 0.25 mg daily. 3. Recheck TSH in 6 weeks. Ordered: Office Visit Level 4 Est 15576 Dependent edema, Localized edema 1. Her edema does not seem to have improved compared to last week. 2. Increase Lasix to 40 mg daily. 3. Recent potassium 10 milliequivalents to 3 times a day. 4. Elevate legs when resting. 5. Low salt diet recommended. 6. Increase protein in her diet. Ordered: Office Visit Level 4 Est 49298 Stasis dermatitis, Varicose veins of right lower extremity with inflammation 1. I do not find any evidence of cellulitis. Findings are more consistent with stasis dermatitis. 2. I anticipate that once we get the fluid under control the redness and warmth sensation to her lower extremities should resolve. 3. Continue the antibiotics since we already started it. Ordered: Office Visit Level 4 Est 56561
--- OUTSIDE RECORDS SUMMARY | 2017-07-25 12:16 | External Medical Summary | Referral Summary ---
:1930 Author Organization [facility] [address] [place] [address] Care Team Providers Name Role Phone Barry Reyes Primary Care Physician Encounter VC Date(s): 04/26/16 - 04/26/16 [facility] [address] [place] [phone] [place] Discharge Diagnosis: HTN (hypertension) Discharge Disposition: 01-Home or Self Care Attending Physician: Barry Reyes DO Admitting Physician: Barry Reyes DO Vital Signs Most recent to oldest [Reference Range]: 1 Temperature Tympanic [36.6-38.1 degC] 35.2 degC *LOW* (04/26/16 10:34 AM) Peripheral Pulse Rate [60-100 bpm] 65 bpm (04/26/16 10:34 AM) Blood Pressure [90-140/60-90 mmHg] 192/102 mmHg *HI* (04/26/16 10:34 AM) Problem List Condition Effective Dates Status Health Status Informant Wet senile macular Active degeneration(Confirmed) Adult onset hypothyroidism(Confirmed) Active Allergies, Adverse Reactions, Alerts Substance Reaction Severity Status morphine Active Medications amLODIPine 5 mg oral tablet 5 mg 1 tabs, Oral, Daily, # 30 tabs, 0 Refill(s), Pharmacy: [facility] [id number], 1 tabs Oral Daily Start Date: 04/26/16 Status: Orderedlevothyroxine 25 mcg (0.025 mg) oral tablet See Instructions, TAKE 1 TABLET BY MOUTH DAILY, # 30 tabs, eRx: [facility] [id number], TAKE 1 TABLET BY MOUTH DAILY Start Date: 11/28/15 Status: Orderedlevothyroxine 25 mcg (0.025 mg) oral tablet 25 mcg 1 tabs, Oral, Daily, # 90 tabs, 2 Refill(s), Pharmacy: [facility] [id number], 1 tabs Oral Daily Start Date: 01/03/16 [...] reevaluation Ordered: Office Visit Level 4 Est 26493 Continue levothyroxine as previous.
--- OUTSIDE RECORDS SUMMARY | 2017-07-25 12:16 | External Medical Summary | Referral Summary ---
:1930 Author Organization [facility] [place] [place] [address] Care Team Providers Name Role Phone Barry Reyes Primary Care Physician Encounter VC Date(s): 10/06/15 - 10/06/15 [facility] [address] [place] [phone] [place] Discharge Diagnosis: Wet senile macular degeneration Discharge Diagnosis: Adult onset hypothyroidism Discharge Disposition: 01-Home or Self Care Attending Physician: Barry Reyes DO Admitting Physician: Barry Reyes DO Vital Signs Most recent to oldest [Reference Range]: 1 Temperature Tympanic [36.6-38.1 degC] 36.9 degC (10/06/15 9:48 AM) Peripheral Pulse Rate [60-100 bpm] 74 bpm (10/06/15 9:48 AM) Blood Pressure [90-140/60-90 mmHg] 120/65 mmHg (10/06/15 9:48 AM) Problem List Condition Effective Dates Status Health Status Informant Wet senile macular Active degeneration(Confirmed) Adult onset hypothyroidism(Confirmed) Active Allergies, Adverse Reactions, Alerts Substance Reaction Severity Status morphine Active Medications levothyroxine 25 mcg (0.025 mg) oral tablet 25 mcg 1 tabs, Oral, Daily, # 30 tabs, 2 Refill(s), Pharmacy: [facility] [id number], 1 tabs Oral Daily Start Date: 09/15/15 Status: Ordered Results Chemistry Most recent to oldest [Reference Range]: 1 Sodium Venous [136-145 mmol/L] 137 mmol/L (10/06/15 10:25 AM) Potassium Venous [3.5-5.1 mmol/L] 3.7 mmol/L 1 (10/06/15 10:25 AM) Calcium Ionized Venous [1.10-1.30 mmol/L] 1.17 mmol/L (10/06/15 10:25 AM) Total CO2 Venous [24-29 mmol/L] 20 mmol/L *LOW* (10/06/15 10:25 AM) Glucose Venous [70-100 mg/dL] 139 mg/dL *HI* (10/06/15 10:25 AM) BUN Venous [8-26] 17 (10/06/15 10:25 AM) Creatinine Venous [0.6-1.2 mg/dL] 1.0 mg/dL (10/06/15 10:25 AM) Venous CL [98-109 mmol/L] 100 mmol/L (10/06/15 10:25 AM) 1Result Comment: This test [...] Plan Extracted from: Title: [place] [facility] [place] Author: Barry Reyes DO Date: Assessment/Plan Adult onset hypothyroidism Continue with levothyroxine [...] Magnesium Level Office Visit Level 4 Est 48080 Electrolyte imbalance As above. Ordered: Basic Metabolic Panel Magnesium Level Office Visit Level 4 Est 50868 Wet senile macular degeneration Recommendations as per clean up worker.
--- OUTSIDE RECORDS SUMMARY | 2017-07-25 12:17 | External Medical Summary | Continuity of Care Document ---
:[address] [facility] Allergies Active Description Code Type Severity Reaction Onset Reported/ Identified Relationship Clinical to Patient Status Yes morphine morph Drug Moderate FAMILY 09/26/2016 ine Aller STATES gy WILL KNOCK HER OUT Yes No Known No Drug Unknown NONE 09/26/2016 Drug Known Aller Allergies Drug gy Aller gies Medications There is no data. 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, UNSPECIFIED 09/10/2016 Tatiaan PAYNE, F R13.10 DYSPHAGIA, Kurtis L UNSPECIFIED 09/10/2016 Tatiana PAYNE, F R29.707 NIHSS SCORE 7 Kurtis L 09/10/2016 Tatiana PAYNE, F R29.810 FACIAL WEAKNESS Kurtis L 09/10/2016 Tatiana PAYNE, F R47.1 DYSARTHRIA AND Kurtis L ANARTHRIA 09/10/2016 Tatiana PAYNE, F R47.81 SLURRED SPEECH Kurtis L 09/10/2016 Tatiana PAYNE, A R53.1 WEAKNESS Kurtis L 09/10/2016 Tatiana PAYNE, F R59.0 LOCALIZED ENLARGED Kurtis L LYMPH NODES 09/10/2016 Tatiana PAYNE, F S00.81XA ABRASION OF OTHER Kurtis L PART OF HEAD, INITIAL ENCOUNTER 09/28/2016 KEANU [...] LEFT N 09/28/2016 KEANU BARONE MD Z79.01 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 HELPER (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 OF ANTICOAGULANTS 09/28/2016 KEANU BARONE MD Z79.02 GLASS ETCHER HELPER (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 OF ANTITHROMBOTICS/ANTI SERGIO 09/28/2016 KEANU BARONE MD Z79.82 GLASS ETCHER HELPER (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 OF ASPIRIN 09/28/2016 KEANU BARONE MD Z88.5 ALLERGY STATUS TO NARCOTIC AGENT STATUS Procedures Code Description Performed By Performed On EXTIRPATION KEANU BARONE MD 09/28/2016 [id number] OF MATTER FROM R INT CAROTID, OPEN KARISHMA SUPPLEMENT R KEANU BARONE MD 09/28/2016 [id number] INT CAROTID WITH NONAUT SUB, OPEN KARISHMA Results Test Result Range CBC W/DIFF - [...] 4.00-6.00 RED CELL DISTRIBUTION WIDTH 14.0 % 11.0-15.6 WHITE BLOOD CELL 3.9 k/cumm 5.0-10.0 HEMOGLOBIN [...] 4.00-6.00 RED CELL DISTRIBUTION WIDTH 13.9 % 11.0-15.6 WHITE BLOOD CELL 4.1 k/cumm 5.0-10.0 HEMOGLOBIN [...] 4.00-6.00 RED CELL DISTRIBUTION WIDTH 14.0 % 11.0-15.6 WHITE BLOOD CELL 3.8 k/cumm 5.0-10.0 HEMOGLOBIN 14.9 gm/dL 12.0-16.0 HEMATOCRIT 44.9 % 37.0-47.0 PLATELET COUNT 235 k/cumm 150-400 METABOLIC PANEL, COMPREHN - 09/13/16 06:00 POTASSIUM 3.5 mmol/L 3.5-5.3 [...] mg/dL 0.0-1.0 ALKALINE PHOSPHATASE TOTAL 101 IU/L 45-117 MAGNESIUM - 09/13/16 06:00 MAGNESIUM 2.5 mg/dL 1.8-2.4 CBC - 09/17/16 06:00 MEAN CELL HGB 30.1 pg 27.0-33.0 MEAN CELL HGB CONCENTRATION 32.9 g/dL 32.0-37.0 MEAN CELL VOLUME 91.4 fl 80.0-100.0 RED BLOOD CELL 4.79 m/cumm 4.00-6.00 RED CELL DISTRIBUTION WIDTH 13.8 % 11.0-15.6 WHITE BLOOD CELL 3.4 k/cumm 5.0-10.0 HEMOGLOBIN 14.4 gm/dL 12.0-16.0 HEMATOCRIT 43.8 % 37.0-47.0 PLATELET COUNT 211 k/cumm 150-400 METABOLIC PANEL, COMPREHN - 09/17/16 06:00 POTASSIUM 4.1 mmol/L 3.5-5.3 [...] mg/dL 0.0-1.0 ALKALINE PHOSPHATASE TOTAL 99 IU/L 45-117 MAGNESIUM - 09/17/16 06:00 MAGNESIUM 2.4 mg/dL 1.8-2.4 CBC - 09/20/16 06:00 MEAN CELL HGB 29.9 pg 27.0-33.0 MEAN CELL HGB CONCENTRATION 33.0 g/dL 32.0-37.0 MEAN CELL VOLUME 90.8 fl 80.0-100.0 RED BLOOD CELL 4.11 m/cumm 4.00-6.00 RED CELL DISTRIBUTION WIDTH 13.5 % 11.0-15.6 WHITE BLOOD CELL 4.3 k/cumm 5.0-10.0 HEMOGLOBIN [...] mg/dL 0.0-1.0 ALKALINE PHOSPHATASE TOTAL 90 IU/L 45-117 MAGNESIUM - 09/20/16 06:00 MAGNESIUM 2.3 mg/dL 1.8-2.4 CBC - 09/24/16 06:00 MEAN CELL HGB 30.3 pg 27.0-33.0 MEAN CELL HGB CONCENTRATION 33.6 g/dL 32.0-37.0 MEAN CELL VOLUME 90.1 fl 80.0-100.0 RED BLOOD CELL 4.26 m/cumm 4.00-6.00 RED CELL DISTRIBUTION WIDTH 13.2 % 11.0-15.6 WHITE BLOOD CELL 4.7 k/cumm 5.0-10.0 HEMOGLOBIN 12.9 gm/dL 12.0-16.0 HEMATOCRIT 38.4 % 37.0-47.0 PLATELET COUNT 236 k/cumm 150-400 METABOLIC PANEL, COMPREHN - 09/24/16 06:00 POTASSIUM 4.0 mmol/L 3.5-5.3 [...] mg/dL 0.0-1.0 ALKALINE PHOSPHATASE TOTAL 130 IU/L 45-117 MAGNESIUM - 09/24/16 06:00 MAGNESIUM 2.4 mg/dL 1.8-2.4 METABOLIC PANEL, COMPREHN - 09/27/16 06:00 POTASSIUM 3.9 mmol/L 3.5-5.3 [...] mg/dL 0.0-1.0 ALKALINE PHOSPHATASE TOTAL 115 IU/L 45-117 MAGNESIUM - 09/27/16 06:00 MAGNESIUM 2.4 mg/dL 1.8-2.4 CBC - 09/27/16 06:00 MEAN CELL HGB 29.9 pg 27.0-33.0 MEAN CELL HGB CONCENTRATION 32.8 g/dL 32.0-37.0 MEAN CELL VOLUME 91.3 fl 80.0-100.0 RED BLOOD CELL 3.91 m/cumm 4.00-6.00 RED CELL DISTRIBUTION WIDTH 13.3 % 11.0-15.6 WHITE BLOOD CELL 4.1 k/cumm 5.0-10.0 HEMOGLOBIN [...] 4.00-6.00 RED CELL DISTRIBUTION WIDTH 13.0 % 11.0-15.6 WHITE BLOOD CELL 6.2 k/cumm 5.0-10.0 HEMOGLOBIN [...] GLUCOSE (POC) 116 mg/dL 70-99 METABOLIC PANEL, COMPREHN - 09/29/16 21:48 POTASSIUM 4.0 mmol/L 3.5-5.3 [...] mg/dL 0.0-1.0 ALKALINE PHOSPHATASE TOTAL 112 IU/L 45-117 CBC W/DIFF - 03/26/17 09:41 EOSINOPHIL # 0.1 k/cumm 0.1-0.5 EOSINOPHIL [...] 4.00-6.00 RED CELL DISTRIBUTION WIDTH 13.4 % 11.0-15.6 WHITE BLOOD CELL 5.3 k/cumm 5.0-10.0 HEMOGLOBIN [...] 4.00-6.00 RED CELL DISTRIBUTION WIDTH 13.0 % 11.0-15.6 WHITE BLOOD CELL 4.5 k/cumm 5.0-10.0 HEMOGLOBIN [...] mg/dL 0.0-1.0 ALKALINE PHOSPHATASE TOTAL 55 IU/L 45-117 MAGNESIUM - 10/03/16 06:00 MAGNESIUM 1.8 mg/dL [...] 4.00-6.00 RED CELL DISTRIBUTION WIDTH 13.3 % 11.0-15.6 WHITE BLOOD CELL 4.1 k/cumm 5.0-10.0 HEMOGLOBIN [...] 4.00-6.00 RED CELL DISTRIBUTION WIDTH 13.6 % 11.0-15.6 WHITE BLOOD CELL 5.4 k/cumm 5.0-10.0 HEMOGLOBIN [...] 4.00-6.00 RED CELL DISTRIBUTION WIDTH 13.9 % 11.0-15.6 WHITE BLOOD CELL 4.7 k/cumm 5.0-10.0 HEMOGLOBIN [...] 06:00 MAGNESIUM 2.2 mg/dL 1.8-2.4 Encounters ACCT Visit Discharge Status Pt. Type Provider Facility Loc./Unit Complaint No. Date/Time [id number] 10/03/2016 11/02/2016 [facility] [id number] 08:08:00 00:00:00 [facility] [id number] 09/12/2016 10/12/2016 [facility] [id number] 15:24:00 00:00:00 [id number] 09/28/2016 10/02/2016 DIS Inpatient Ildefonso BARONE [id number] [id number] 08:39:00 10:00:00 [facility] [id number] 09/10/2016 09/12/2016 DIS Inpatient Tatiana Yoon10TN [id number] 19:22:00 17:28:00 Kurtis PAYNE [facility]
--- NOTE | 2017-07-25 12:44 | CT Scan Report ---
Indication: Pain, Injury, fall, dementia PROCEDURE: CT head/brain wo con: Encounter: Initial Comparison: October 15, 2016 Technique: Axial CT images through the head were performed without contrast. Iterative Reconstruction dose reducing technique was utilized. FINDINGS: The ventricles are of normal size, shape, and configuration for the patient's age. Old right frontal lobe infarct and bilateral basal ganglia lacunar infarcts. There is no evidence of acute intracranial hemorrhage, midline displacement, or mass effect. There are scattered areas of low attenuation in the white matter which most likely represent changes of chronic microvascular ischemia. The CT attenuation of the brain parenchyma is otherwise normal within the cerebellum, brain stem, and cerebral hemispheres. The tympanic cavities and mastoid air cells are free of appreciable disease. There are no definite fractures of the skull base, calvarium, or visualized portion of the midface. IMPRESSION: No CT evidence of acute traumatic intracranial injury. .
--- NOTE | 2017-07-25 12:50 | CT Scan Report ---
Indication: fall, dementia PROCEDURE: CT cervical spine wo con: Encounter: Initial Comparison: None Technique: Axial CT images through the cervical spine were performed without contrast. Coronal and sagittal reformatted images were also obtained. Automated Exposure Control and Iterative Reconstruction dose reducing techniques were utilized. FINDINGS: The alignment of the cervical spine is normal. Multilevel degenerative changes are present. There is no evidence of acute fracture or subluxation of the cervical spine. The atlantoaxial articulation, dens, and upper cervical spine demonstrate no subluxation. The paraspinal soft tissues and spinal canal appear unremarkable. IMPRESSION: No acute traumatic abnormality of the cervical spine. .
--- NOTE | 2017-07-25 12:52 | XRay Report ---
Indication: Fall. L hip Pain PROCEDURE: XR pelvis w/ 2 view LT hip: Encounter: Initial Comparison: None Findings: Irregularity of the lateral cortex of the left femoral neck which is partially obscured by overlapping greater trochanter. No additional area concerning for acute fracture. No dislocation. Diffuse bony demineralization limiting detection of nondisplaced fractures. Large calcified fibroid in the pelvis. Impression: Possible left femoral neck fracture. Recommend CT or MRI for further evaluation. .
--- NOTE | 2017-07-25 13:51 | CT Scan Report ---
Indication: L Hip Injury PROCEDURE: CT hip LT wo con: Encounter: Initial Comparison: Pelvis and left hip radiographs from today Technique: Axial CT images were performed through the left hip without intravenous contrast. Coronal and sagittal two-dimensional reformats. Automated Exposure Control and Iterative Reconstruction dose reducing techniques were utilized. Findings: Bony demineralization limiting detection of nondisplaced fractures. Although there is an area of cortical irregularity on the lateral basal cervical portion of the left femoral neck, there is no discrete fracture line appreciated. No dislocation. Hip joint spaces obtained. Self catheter within the bladder. Soft tissues of the pelvis are otherwise unremarkable. There is soft tissue contusion in the left hip area subcutaneous fat. Muscular attenuation is grossly normal. Impression: No definite fracture of the left hip. If there is continued pain or clinical concern, further evaluation with MRI would be recommended given the patient's age and bony demineralization. .
--- NOTE | 2017-07-25 17:18 | Magnetic Resonance Report ---
Indication: Pain, Injury, ABNL CT/X-ray. PROCEDURE: MR hip LT wo con: Encounter: Initial Comparison: Left hip radiographs and CT from earlier today Technique: Multiplanar multisequence MR imaging of the left hip was performed without contrast. Findings: Vertically oriented linear edema in the intertrochanteric area of the left femur consistent with a nondisplaced fracture. This exits the lateral cortex of the neck at the area of cortical irregularity seen by CT and x-ray. This extends inferiorly and posteriorly into the greater trochanter and intertrochanteric region. No additional acute fractures seen. 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 Mild overlying subcutaneous edema. There is also edema within the obturator musculature probably due to partial tearing or strain. The remaining muscular signal intensity is normal. Impression: Nondisplaced intertrochanteric left femoral fracture. .
[2017-07-25] MEDS ORDERED: SALINE FLUSH 10ml SYRINGE IVF PRN (17:32)
[2017-07-25] MEDS ORDERED: NS 1,000 ML IV ONE (18:04)
[2017-07-25 18:44] VITALS: BMI 20.5
--- NOTE | 2017-07-25 18:44 | History & Physical Report ---
History of Present Illness Date: 07/25/17 Chief complaint: fall, left hip pain HPI: Ramona Nguyen is an 87-year-old who was standing out from her breakfast table and states her left foot got caught on the table leg, causing her to fall onto her left hip. She cannot recall if she hit her head. She has a history suspicious for dementia, according to her daughter. Her daughter was also present for interview, and provided collateral history. Stable state Ramona has been in good health recently without illnesses, fevers, cardiac complaints, Neurologic changes, or GI/urinary concerns. She has chronic visual loss and can only see people out of the corner of her eyes. She also is hard of hearing. She does not tend to fall frequently, but does use a walker for ambulation. She had a stroke in spring which also affected the left side. She takes Plavix due to stroke. She was transported to [facility] emergency department, where an initial hip x-ray and CT scans were inconclusive for hip fracture. However, on hip MRI. An intertrochanteric fracture was identified. Cervical spine CT was also obtained showing multilevel degenerative changes without acute abnormality. Head CT likewise was negative for acute findings, but did demonstrate old right frontal lobe infarct in bilateral basal ganglia lacunar infarcts. Labs were overwhelmingly stable with a normal white count, normal hemoglobin of 12.9, and normal chemistry panel. Chest x-ray did not show any acute findings. Dr. Hathaway and Dr. Ellis were notified, and Ramona was admitted to inpatient status for surgical fixation of her hip fracture. Review of Systems All systems PM: 10-point ROS was reviewed, no additional remarkable complaints except - Constitutional Constitutional: Absent: chills, fever(s), headache(s), weight loss - EENMT Eyes: Present: loss of vision Nose: Absent: obstruction Mouth/Throat: Absent: sore throat, painful swallowing - Cardiovascular Cardiovascular: Absent: chest pain, palpitations Vascular: Absent: pedal edema - Respiratory Respiratory: Absent: cough, dyspnea - Gastrointestinal Gastrointestinal: Absent: abdominal pain, constipation, diarrhea, nausea, vomiting - Genitourinary Genitourinary: Absent: difficulty urinating, hematuria - Musculoskeletal Musculoskeletal: Present: abnormal gait (uses walker), muscle cramps - Integumentary/Breasts Integumentary: Absent: rash, wounds - Neurological Neurological: Present: abnormal gait, confusion (tends to occur in the evenings) , loss of vision (chronic). Absent: abnormal speech, focal weakness, frequent falls, numbness, paresthesias, weakness - Psychiatric Psychiatric: Present: behavioral changes (in the evenings) - Endocrine Endocrine: Absent: palpitations - Hematologic/Lymphatic Hematologic/Lymphatic: Present: easy bruising - Allergic/Immunologic Allergic/Immunologic: Absent: seasonal rhinorrhea Past Medical History Ischemic stroke. 09/10/16. Carotid stenosis. Dyslipidemia. Hypertension Hypothyroidism A. fib - occurred during CEA Macular degeneration. Surgical History: Right CEA 09/24/[address] Kendrick Elizabeth. Cataracts. Breast biopsy, benign Family History Updates: Father of old age at age 92, mother had an enlarged heart. Her siblings had diabetes, Alzheimer's, pancreatic cancer and breast cancer. - Social History Smoking status: Never smoker Substance use type: does not use Alcohol intake frequency: does not drink Social history: Primary care physician is Dr. Reyes. Senior Tax Analyst is Dr. De Luna. Medications Home Medications Medication Instructions Recorded Confirmed Type Clopidogrel Bisulfate [Clopidogrel] 75 mg PO DAILY #0 10/15/16 07/25/17 History Lutein 20 mg PO DAILY #0 10/15/16 07/25/17 History Amiodarone [Pacerone] 200 mg PO BID 07/25/17 07/25/17 History Lisinopril [Prinivil] 20 mg PO DAILY 07/25/17 07/25/17 History Mirtazapine [Remeron] 15 mg PO HS 07/25/17 07/25/17 History Allergies Allergy/AdvReac Type Severity Reaction Status Date / Time morphine AdvReac Mild VOMITS Verified 09/26/15 08:04 Exam Vital Signs: Temperature 98.3 F 07/25/17 11:42 Pulse Rate 55 L 07/25/17 16:16 Respiratory Rate 20 07/25/17 11:42 Blood Pressure 143/84 H 07/25/17 16:16 Pulse Oximetry 98 07/25/17 16:16 - Constitutional Present: no acute distress, well nourished, well developed, thin - Routine HEENT Exam Head: Present: normocephalic Eye: Present: PERRL ENT: Present: mucous membranes moist, oropharynx clear, external ear normal ( heart of hearing). Absent: dentition normal (edentulous) Comments: Patient often look straight ahead during communication. Her daughter explained that she can only see out of the corners of her eyes because of her macular degeneration. - Routine Neck Exam Present: supple. Absent: lymphadenopathy Comments: Right CEA incision well-healed - Routine Respiratory Exam Present: CTA bilaterally - Routine Cardiovascular Exam Present: RRR, murmur (3/6 systolic murmur) - Routine Abdominal Exam Present: soft, normoactive bowel sounds, non distended, non tender - Routine Extremities Exam Present: no edema, pulses intact, normal capillary refill Comments: tenderness and muscle spasm to left popliteal area - Routine Skin Exam Present: intact, dry, warm - Routine Neurological Exam Present: alert, oriented X3 (baseline per daughter), moving all extremities, hearing grossly intact (at baseline per daughter), normal speech - Routine Psychiatric Exam Present: normal affect, normal thought process, cooperative Results - Labs CBC & Chem 7: 07/25/17 17:42 07/25/17 17:42 - Imaging and Cardiology MRI left hip Additional comments: Left IT hip fracture Assessment and Plan (1) Intertrochanteric fracture of left hip Current visit: Yes Status: Acute Assessment and Plan: Impression Left IT hip fracture s/p mechanical fall. Ischemic stroke. 09/10/16. On Plavix. A. fib - occurred during CEA - not on anticoagulation Dyslipidemia. Hypertension CKD-stage III--RLL 07/25/17 Hypothyroidism Macular degeneration. 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 Plan Admit, inpatient status under the hospitalist service with consultation placed to Dr. Hathaway. NPO at midnight. Consult PT/OT after surgery. History of A. fib and stroke - monitor heart rate/rhythm on telemetry and check EKG. She is not anticoagulated but does take Plavix and amiodarone. Will check platelet function test and hold Plavix. Preop labs were stable. Chest x-ray shows no acute abnormality on my read. UA pending. We'll start senna plus, and MiraLAX for bowel motivation. Anticipate possibility of acute delirium/encephalopathy and provide safe environment. Could consider low-dose Haldol if needed. For pain control, [place] 5 or Fentanyl 50 mcg, PRN. She vomited once after a pain med was given in the ED - will have Zofran available PRN. Resume home meds including Lisinopril, Remeron, Zocor. CODE STATUS was discussed. Ramona's daughter, Yareli is her healthcare DPOA. While at the facility. She has a DO NOT RESUSCITATE order, at this time Ramona would like to retract that and requests full resuscitation. Yareli states that she is mentally clear at this time and would like to honor her wish. Discussed with Dr. Ellis. DVT Prophylaxis: SCD's Resuscitation Status: Full Code - Physician Narrative Physician: Kalli Ellis MD Narrative: Date: 07/25/17 Time: 2029 I have independently evaluated and examined this patient. I reviewed the chart, the patient's history, and the [employer]/PA's documented findings as above. We discussed and formulated the assessment and plan as above with additions as below: Mrs. Nguyen was seen after arriving on the surgical unit. She is resting comfortable and reports adequate pain control and denies dyspnea. She c/o need to void and was reminded she has a devlin catheter in. NAD, soft spoken Respirations nonlabored, good airflow, breath sounds clear Regular rhythm, S1-S2, 2-3/6 systolic murmur with possible very soft early diastolic murmur Abdomen benign Labs reviewed-unremarkable except GFR of 47 and BUN 30. Chest x-ray reviewed by myself demonstrating borderline cardiomegaly and linear atelectasis at the bases; x-ray of the hip/pelvis also reviewed with calcified uterine fibroid evident-I cannot identify a fracture. MRI of the hip reviewed, radiology identifies a left intertrochanteric fracture. EKG reviewed by myself demonstrating sinus bradycardia with rate of 50, first- degree block, and diffuse T-wave flattening. Stable for surgical intervention, on Plavix so will need platelets on standby if proceed in the next 24-48 hours. Medications will need to be dose adjusted for chronic renal failure. Discussed with Dr. Goldstein, old records reviewed. Hospital Course Summary Disclaimer: The visit summary below is not to be considered part of the above Progress Note. Hospital Course: 07/25/17 Admit, inpatient status under the hospitalist service with consultation placed to Dr. Hathaway. NPO at midnight. Consult PT/OT after surgery. History of A. fib and stroke - monitor heart rate/rhythm on telemetry and check EKG. She is not anticoagulated but does take Plavix and amiodarone. Will check platelet function test and hold Plavix. Preop labs were stable. Chest x-ray shows no acute abnormality on my read. We'll start senna plus, and MiraLAX for bowel motivation. Anticipate possibility of acute delirium/encephalopathy and provide safe environment. Could consider low-dose Haldol if needed. For pain control, [place] 5 or Fentanyl 50 mcg, PRN. She vomited once after a pain med was given in the ED - will have Zofran available PRN. Resume home meds including Lisinopril, Remeron, Zocor. CODE STATUS was discussed. Ramona's daughter, Yareli is her healthcare DPOA. While at the facility. She has a DO NOT RESUSCITATE order, at this time Ramona would like to retract that and requests full resuscitation. Yareli states that she is mentally clear at this time and would like to honor her wish.
[2017-07-25] MEDS ORDERED: FentaNYL 100 MCG/2 ML INJECTION IVP PRN (18:58)
[2017-07-25] MEDS ORDERED: ONDANSETRON 4 MG/2 ML INJECTION IVP PRN (18:59)
[2017-07-25] MEDS ORDERED: FALL RISK - PHARMACY CONSULT XX ONE (19:09)
[2017-07-25] MEDS: HYDROCODONE/APAP 5mg/325mg TABLET PO PRN (22:24)
[2017-07-25] MEDS: SENNA + DOCUSATE TABLET PO SCH (22:24)
[2017-07-25] MEDS: AMIODARONE 200 MG TABLET PO SCH (22:24)
[2017-07-25] MEDS: SIMVASTATIN 20 MG TABLET PO SCH (22:25)
[2017-07-25] MEDS: MIRTAZAPINE 15 MG TABLET PO SCH (22:25)
--- NOTE | 2017-07-26 08:14 | XRay Report ---
Indication: hip fx - surgical clearance PROCEDURE: XR chest 1V: Encounter: Initial Comparison: September 26, 2015 Findings: The lungs are stable in appearance without new focal airspace consolidation. There is no pleural effusion or pneumothorax. The heart size, pulmonary vascularity and mediastinal contours are unchanged. T11 compression fracture. IMPRESSION: No acute cardiopulmonary disease. .
--- NOTE | 2017-07-26 08:25 | Orthopedic Consult Note ---
Orthopedic Consultation HPI - Consultation Info Consult Date: 07/26/17 Attending Physician: Kalli Ellis MD Consult Reason: fracture - History of Present Illness Ramona Nguyen is an 87-year-old who was standing beside her breakfast table when her left foot got caught on the table leg, causing her to fall onto her left hip. She was seen in [facility] where xrays and CT were inconclusive for a hip fx. MRI was done and showed a non-displaced intertrochanteric fracture of the left hip. She was admitted by the hospitalist service and ortho consulted for treatment of the left hip. The daughter feels Ramona is developing some dementia. She had a CVA in the Spring 2016 and has visual limitations. She uses a walker but has been stable without frequent falls. She has generally been in her normal state of health until this fall. Review of Systems - Cardiovascular Cardiovascular: Absent: chest pain - Respiratory Respiratory: Absent: cough, dyspnea - Gastrointestinal Gastrointestinal: Absent: abdominal pain - Genitourinary Genitourinary General: Absent: fever(s) - Musculoskeletal Musculoskeletal: Present: as per HPI - Neurological Neurological: Absent: numbness, paresthesias, tingling - Psychiatric Psychiatric: Present: other (Daughter questions early dementia.) [facility] Patient Stated Medical History Cerebrovascular Accident Yes Macular Degeneration Yes Cardiac Arrhythmia Yes: AFib Hypertension Yes Other Cardiology Yes: Carotid Stenosis Surgical History: R CEA, Cataract, Breast Biopsy - Social History Smoking status: Never smoker Medications Home Medications Medication Instructions Recorded Confirmed Type Clopidogrel Bisulfate [Clopidogrel] 75 mg PO DAILY #0 10/15/16 07/25/17 History Lutein 20 mg PO DAILY #0 10/15/16 07/25/17 History Amiodarone [Pacerone] 200 mg PO BID 07/25/17 07/25/17 History Lisinopril [Prinivil] 20 mg PO DAILY 07/25/17 07/25/17 History Mirtazapine [Remeron] 15 mg PO HS 07/25/17 07/25/17 History Allergies Allergy/AdvReac Type Severity Reaction Status Date / Time morphine AdvReac Mild VOMITS Verified 09/26/15 08:04 Orthopedic Exam Vital signs: Temperature 97.0 F 07/26/17 04:00 Pulse Rate 47 L 07/26/17 04:00 Respiratory Rate 16 07/26/17 04:00 Blood Pressure 130/69 07/26/17 04:00 Pulse Oximetry 96 07/26/17 04:00 - Constitutional General Appearance: Present: alert, other (Very hard of hearing and doesn't interact much this AM.) - Respiratory Exam Present: non-labored - Cardiovascular Exam Present: pedal pulses intact - Extremities Exam Present: no edema, pulses intact, normal capillary refill - Hip Exam left Hip Exam: Present: tender over trochanter, alignment normal, painful PROM. Absent: unequal leg length - Integumentary Exam Present: pink, warm, dry - Neurological Exam Present: no deficits - Psychiatric Exam Present: alert - Labs Result Diagrams: 07/26/17 04:23 07/26/17 04:23 Abnormal lab results 07/25/17 07/25/17 07/25/17 Range/Units 17:38 17:42 17:42 RBC (4.00-5.20) M/MM3 Neut % (Auto) (33-66) % Lymph % (Auto) (23-45) % Lymph # (Auto) (1-4.8) T/MM3 Neutrophils % (Manual) 94.0 H (33-66) % Lymphocytes % (Manual) 2.0 L (23-45) % Neutrophils # (Manual) 8.1 H (1.8-7.7) T/MM3 Lymphocytes # (Manual) 0.2 L (1-4.8) T/MM3 Chloride 110 H (98-107) MEQ/L BUN 30.0 H (7-17) MG/DL Creatinine (0.7-1.2) MG/DL BUN/Creatinine Ratio 27 H (6-26) RATIO Glucose 142 H (65-110) MG/DL Calculated Osmolality 285 H (261-280) MOSM/KG Phosphorus (2.5-4.5) MG/DL Ur Specific [place] 1.010 L (1.015-1.025) Ur Leukocyte Esterase Trace A (NEGATIVE) 07/26/17 07/26/17 Range/Units 04:23 04:23 RBC 3.95 L (4.00-5.20) M/MM3 Neut % (Auto) 80.3 H (33-66) % Lymph % (Auto) 10.4 L (23-45) % Lymph # (Auto) 0.7 L (1-4.8) T/MM3 Neutrophils % (Manual) (33-66) % Lymphocytes % (Manual) (23-45) % Neutrophils # (Manual) (1.8-7.7) T/MM3 Lymphocytes # (Manual) (1-4.8) T/MM3 Chloride 111 H (98-107) MEQ/L BUN 34.0 H (7-17) MG/DL Creatinine 1.4 H D (0.7-1.2) MG/DL BUN/Creatinine Ratio (6-26) RATIO Glucose (65-110) MG/DL Calculated Osmolality 283 H (261-280) MOSM/KG Phosphorus 5.2 H (2.5-4.5) MG/DL Ur Specific [place] (1.015-1.025) Ur Leukocyte Esterase (NEGATIVE) H & H 07/25/17 07/26/17 Range/Units 17:42 04:23 Hgb 12.9 12.0 (12-16) GM/DL Hct 39.8 37.4 (36-46) % Impression and Recommendation (1) Intertrochanteric fracture of left hip Current visit: Yes Qualifiers: Encounter type: initial encounter Fracture type: closed Fracture alignment: nondisplaced Qualified Code(s): S72.145A - Nondisplaced intertrochanteric fracture of left femur, initial encounter for closed fracture Status: Acute Dr Hathaway has met with the pt and family to discussed the nature of the injury. Options of treating her surgically today vs getting her up and repeating xrays tomorrow were offered. The pt and family have elected to proceed with surgical fixation of the left hip today. Will plan a gamma nailing to the left hip. Dr Hathaway discussed the surgical procedure, risk vs benefits, alternative treatment options and possible complications. Questions have been answered to the patient and families satisfaction. Hospital Course Summary Disclaimer: The visit summary below is not to be considered part of the above Progress Note. Hospital Course: 07/25/17 Admit, inpatient status under the hospitalist service with consultation placed to Dr. Hathaway. NPO at midnight. Consult PT/OT after surgery. History of A. fib and stroke - monitor heart rate/rhythm on telemetry and check EKG. She is not anticoagulated but does take Plavix and amiodarone. Will check platelet function test and hold Plavix. Preop labs were stable. Chest x-ray shows no acute abnormality on my read. We'll start senna plus, and MiraLAX for bowel motivation. Anticipate possibility of acute delirium/encephalopathy and provide safe environment. Could consider low-dose Haldol if needed. For pain control, [place] 5 or Fentanyl 50 mcg, PRN. She vomited once after a pain med was given in the ED - will have Zofran available PRN. Resume home meds including Lisinopril, Remeron, Zocor. CODE STATUS was discussed. Ramona's daughter, Yareli is her healthcare DPOA. While at the facility. She has a DO NOT RESUSCITATE order, at this time Ramona would like to retract that and requests full resuscitation. Yareli states that she is mentally clear at this time and would like to honor her wish.
[2017-07-26] MEDS ORDERED: LISINOPRIL 20 MG TABLET PO SCH (09:00)
--- NOTE | 2017-07-26 10:17 | Progress Note ---
- Date 07/26/17 Subjective: Patient is seen lying in bed today prior to her surgery. She reports her night went well. She is having pain in the hip. She has no other complaints at this time. No chest pain, shortness of breath, nausea vomiting. She did have some GI upset after her third pain pill yesterday, per family. She answers questions appropriately. Of note, patient lost her a few days ago and his is today. Objective Vital signs: Temperature 97.8 F 07/26/17 08:00 Pulse Rate 54 L 07/26/17 08:00 Respiratory Rate 16 07/26/17 08:00 Blood Pressure 179/79 H 07/26/17 08:00 Pulse Oximetry 98 07/26/17 08:00 Height/Weight/BMI: Height 1.6 m Weight 53.5 kg Body Mass Index 20.5 - Constitutional Present: no acute distress, well developed, thin - Routine HEENT Exam Head: Present: normocephalic, atraumatic Comments: Does not make eye contact due to her macular degeneration - Routine Respiratory Exam Present: CTA bilaterally. Absent: wheezes - Routine Cardiovascular Exam Present: RRR. Absent: murmur - Routine Abdominal Exam Present: soft, normoactive bowel sounds, non distended. Absent: tenderness - Routine Extremities Exam Present: no edema, normal capillary refill - Routine Skin Exam Present: dry, warm - Routine Neurological Exam Present: alert. Absent: tremors - Routine Lymphatic Exam Lymphatic: Absent: adenopathy - Routine Psychiatric Exam Present: cooperative, depressed Results - Labs CBC & Chem 7: 07/26/17 04:23 07/26/17 04:23 Assessment and Plan (1) Intertrochanteric fracture of left hip Current visit: Yes Status: Acute Assessment and Plan: Impression Left IT hip fracture s/p mechanical fall. Ischemic stroke. 09/10/16. On Plavix. A. fib - occurred during CEA - not on anticoagulation Dyslipidemia. Hypertension CKD-stage III Hypothyroidism Macular degeneration. 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 Plan Surgery planned for later this morning. Her Plavix has been on hold since admission. Her platelet function test was consistent with antiplatelet effect. Dr. Ellis will see patient postop. Resuscitation Status: Full Code - Physician Narrative Physician: Kalli Ellis MD Narrative: Date: 07/26/17 Time: 1700 I have independently evaluated and examined this patient. I reviewed the chart, the patient's history, and the MINE PROMOTOR/PA's documented findings as above. We discussed and formulated the assessment and plan as above with additions as below: Mrs. Nguyen was seen postoperatively with family members at bedside. She complained of hip pain but denied nausea/vomiting. Lisinopril was held this morning and blood pressures have been elevated postoperatively. The patient is alert and in no distress at the time of evaluation Air flow is diminished but anterior breath sounds are clear Regular cardiac rhythm Resume lisinopril today at 10 mg daily, anticipate that she will need to have dose increased to 20 mg (home dose) over the next 1-2 days provided she's not orthostatic. Hospital Course Summary Disclaimer: The visit summary below is not to be considered part of the above Progress Note. Hospital Course: 07/25/17-hospital admission Admit, inpatient status under the hospitalist service with consultation placed to Dr. Hathaway. NPO at midnight. Consult PT/OT after surgery. History of A. fib and stroke - monitor heart rate/rhythm on telemetry and check EKG. She is not anticoagulated but does take Plavix and amiodarone. Will check platelet function test and hold Plavix. Preop labs were stable. Chest x-ray shows no acute abnormality on my read. We'll start senna plus, and MiraLAX for bowel motivation. Anticipate possibility of acute delirium/encephalopathy and provide safe environment. Could consider low-dose Haldol if needed. For pain control, [place] 5 or Fentanyl 50 mcg, PRN. She vomited once after a pain med was given in the ED - will have Zofran available PRN. Resume home meds including Lisinopril, Remeron, Zocor. CODE STATUS was discussed. Ramona's daughter, Yareli is her healthcare DPOA. While at the facility. She has a DO NOT RESUSCITATE order, at this time Ramona would like to retract that and requests full resuscitation. Yareli states that she is mentally clear at this time and would like to honor her wish. 07/26/17-day of surgery-ORIF left IT fx.
[2017-07-26] MEDS ORDERED: LR 1,000 ML IV SCH (10:30)
[2017-07-26] MEDS: AMIODARONE 200 MG TABLET PO SCH ×2 (10:34→20:30)
[2017-07-26] MEDS: LUTEIN 20 MG CAPSULE PO SCH (10:34)
[2017-07-26] MEDS: POLYETHYL GLYCOL 3350 17gm PACKET PO SCH (10:34)
[2017-07-26] MEDS: SENNA + DOCUSATE TABLET PO SCH ×2 (10:35→20:30)
[2017-07-26] MEDS ORDERED: CEFAZOLIN 1 G INJECTION IVP ONE (10:45)
[2017-07-26] MEDS ORDERED: LIDOCAINE 1% (10mg/ml) 30ml SDV INJ ONE (11:02)
[2017-07-26] MEDS ORDERED: BUPIVACAINE 0.25% (2.5mg/ml) PF 30ml INJECTION ONE (11:02)
[2017-07-26] MEDS ORDERED: BUPIV 0.25% 30ml/LIDO 1% 30ml MIXTURE ID ONE (11:08)
[2017-07-26] MEDS ORDERED: FentaNYL 100 MCG/2 ML INJECTION ONE (11:32)
[2017-07-26] MEDS ORDERED: PROPOFOL 20 ML ONE (11:34)
--- NOTE | 2017-07-26 11:40 | Anesthesia Preoperative Report ---
Anesthesia Preoperative Record - Date and Time Date: 07/26/17 Preoperative Diagnosis: Left IT fracture Proposed Procedure: hip IM nail NPO Since Date: 07/25/17 NPO Since Time: 23:00 Allergies/Adverse Reactions: Allergies Allergy/AdvReac Type Severity Reaction Status Date / Time morphine AdvReac Mild VOMITS Verified 09/26/15 08:04 - Vital Signs Vital Signs: Temperature 98.3 F 07/26/17 10:21 Pulse Rate 56 L 07/26/17 10:21 Respiratory Rate 14 07/26/17 10:21 Blood Pressure 193/84 H 07/26/17 10:21 Pulse Oximetry 94 07/26/17 10:21 Height and Weight: Height 5 ft 3 in Weight 53.5 kg Body Mass Index 20.5 - Medications Inpatient Medications: Current Medications Acetaminophen (Tylenol) 650 mg PO Q5H PRN PRN Reason: Discomfort Hydrocodone Bitart/Acetaminophen ([place] 5/325) 1 - 2 tab PO Q6H PRN PRN Reason: Pain Last Admin: 07/25/17 22:24 Dose: 1 tab Amiodarone HCl (Pacerone) 200 mg PO BID [facility] Last Admin: 07/26/17 10:34 Dose: Not Given Fentanyl (Fentanyl) 25 - 50 mcg IVP Q2H PRN Lactated Ringer's (Lactated Ringers) 1,000 mls @ 30 mls/hr IV .Q24H [facility] Last Admin: 07/26/17 10:19 Dose: 30 mls/hr Lisinopril (Prinivil) 20 mg PO DAILY [facility] Last Admin: 07/26/17 10:34 Dose: Not Given Lutein () 20 mg PO DAILY [facility] Last Admin: 07/26/17 10:34 Dose: Not Given Mirtazapine (Remeron) 15 mg PO HS [facility] Last Admin: 07/25/17 22:25 Dose: 15 mg Ondansetron HCl (Zofran) 4 mg IVP Q6H PRN PRN Reason: Nausea &/or vomiting Polyethylene Glycol (Miralax) 17 gm PO DAILY [facility] Last Admin: 07/26/17 10:34 Dose: Not Given Senna/Docusate Sodium (Senna Plus Tablet) 1 tab PO BID [facility] Last Admin: 07/26/17 10:35 Dose: Not Given Simvastatin (Zocor) 20 mg PO HS [facility] Last Admin: 07/25/17 22:25 Dose: 20 mg Sodium Chloride (Iv Flush) 10 - 80 ml IVF PRN PRN PRN Reason: [place] Home Medications: Home Medications Medication Instructions Recorded Confirmed Type Clopidogrel Bisulfate [Clopidogrel] 75 mg PO DAILY #0 10/15/16 07/25/17 History Lutein 20 mg PO DAILY #0 10/15/16 07/25/17 History Amiodarone [Pacerone] 200 mg PO BID 07/25/17 07/25/17 History Lisinopril [Prinivil] 20 mg PO DAILY 07/25/17 07/25/17 History Mirtazapine [Remeron] 15 mg PO HS 07/25/17 07/25/17 History Is Patient on Beta Juancarlos?: No - Medical History Cardiovascular: Reports: Arrhythmia (AFib), Hypertension, High Cholesterol, Other (Carotid Stenosis) Gastrointestional: DENIES: Gastroesophageal Reflux Disease Neuro/Musculoskeletal: Reports: Cerebrovascular Accident Renal/Endocrine: Reports: Thyroid Disease (Hypo) Other History: DENIES: Anesthesia Reactions - Surgical History HEENT Surgeries: Reports: Eye Surgery (Cataract) Cardiac Surgeries/Treatments: Reports: Other (Right Carotid Endarterectomy) Anesthesia Reactions: None Hx Family Anesthesia Reaction: No History of Motion Sickness: No - Social History Smoking Status: Never smoker Substance Use Type: does not use Alcohol Intake Frequency: does not drink - Pertinent Findings Laboratory: CBC and BMP 07/26/17 04:23 07/26/17 04:23 BMP 07/25/17 07/26/17 17:42 04:23 Sodium 144 143 Potassium 4.5 4.2 Chloride 110 H 111 H Carbon Dioxide 22 22 BUN 30.0 H 34.0 H Creatinine 1.1 1.4 H D Glucose 142 H 99 Calcium 8.9 8.7 Cardiac Enzymes 07/25/17 Range/Units 17:42 Troponin I 0.013 (0-0.12) ng/ml Liver Function 07/25/17 07/26/17 Range/Units 17:42 04:23 Total Bilirubin 0.80 (0.20-1.30) MG/DL AST 24 (14-36) U/L ALT 33 (9-52) U/L Alkaline Phosphatase 109 (38-126) U/L Albumin 4.2 3.6 (3.5-5.0) G/DL Urine 07/25/17 Range/Units 17:38 Urine Color Yellow (YELLOW) Urine Clarity Sl cloudy Urine pH 7.0 (5.0-8.0) Ur Specific [place] 1.010 L (1.015-1.025) Urine Protein Negative (NEGATIVE) Urine Glucose (UA) Negative (NEGATIVE) EKG: Sinus Bradycardia - Physical Exam Respiratory Exam: Present: lungs clear, bilateral breath sounds equal Cardiovascular Exam: Present: regular rate and rhythm - Airway Assessment Mallampati Score: II TMD: 3 Fingerbreadths Neck Extension: fair Teeth: upper dentures, partial lower dentures Overall Assessment: no airway concerns - ASA ASA Score: 3 - Plan Anesthesia: General TIVA - Discussion Discussion: Discussed risks/options/alternatives of anesthesia and questions answered. Patient consents. Nursing pain assessment noted. Present for Discussion: family member Attestation Statement: Prior to the delivery of any anesthetic medication, I examined the patient, developed the plan, obtained the patient's consent and discussed the risk and benefits of the procedure with the patient/guardian. - Additional Information Seen by Anesthesia: Yes
[2017-07-26] MEDS ORDERED: EPHEDRINE 50mg/ml INJECTION ONE (11:50)
[2017-07-26] MEDS ORDERED: TRANEXAMIC ACID TOP ONE (12:04)
[2017-07-26] MEDS ORDERED: NS TOP ONE (12:04)
[2017-07-26] MEDS: FentaNYL 100 MCG/2 ML INJECTION IVP PRN ×4 (12:36→13:19)
--- NOTE | 2017-07-26 12:42 | Post Procedure Note ---
Date of Procedure: 07/26/17 Orthopedic Surgeon: Rivas Orthopedic Assisting Surgeon: Jose Ferrara Anesthesia: General TIVA Procedure: Procedures Operation Date: 07/26/17 12:00 Actual Procedures p Open Reduction Internal Fixation Intertrochanteric Hip (short)(Left) - Behzad Hathaway MD Condition: Stable Disposition: PACU
--- NOTE | 2017-07-26 12:55 | Remote Fluorsocopy Report ---
Indication: LT HIP FX PROCEDURE: RF hip LT 2 view: Encounter: Initial Comparison: Left hip MRI dated July 25, 2017 Findings: Five fluoroscopic spot images are submitted for interpretation. Images show open reduction and internal fixation of the left femoral neck fracture with placement of an intramedullary nail, compression screw and distal interlocking screw. Impression: Fluoroscopy as above. Fluoroscopy time is 63 seconds. Fluoroscopy dose is 1180 mRad. .
--- NOTE | 2017-07-26 13:42 | Anesthesia Postoperative Note ---
- Date and Time Date: 07/26/17 Time: 13:42 - Status Patient Participated in Evaluation: Patient Participated in Person Vital Signs: Temperature 98.2 F 07/26/17 12:28 Pulse Rate 61 07/26/17 13:35 Respiratory Rate 12 07/26/17 13:35 Blood Pressure 183/88 H 07/26/17 13:35 Pulse Oximetry 96 07/26/17 13:35 Respiratory Function: Airway Patent, Regular Respirations Cardiovascular Function: Regular Pulse EKG: Sinus Bradycardia Unable to Assess Pain Due to: Other (dementia) Hydration: IV Infusing Complications During Recover: None Apparent - Follow-Up Instructions Instructions: Per Surgeon
[2017-07-26] MEDS ORDERED: HYDROMORPHONE 2 MG/ML INJECTION IVP PRN (14:06)
[2017-07-26] MEDS: HYDROCODONE/APAP 5mg/325mg TABLET PO PRN (14:15)
[2017-07-26] MEDS: CEFAZOLIN 1 G in NS 100 ML IV SCH (16:58)
[2017-07-26] MEDS: NS 1,000 ML IV SCH (16:58)
[2017-07-26] MEDS: LISINOPRIL 10 MG TABLET PO SCH (17:23)
[2017-07-26] MEDS: SIMVASTATIN 20 MG TABLET PO SCH (20:30)
[2017-07-26] MEDS: CLOPIDOGREL 75 MG TABLET PO SCH (20:30)
[2017-07-26] MEDS: MIRTAZAPINE 15 MG TABLET PO SCH (20:30)
[2017-07-27] MEDS: CEFAZOLIN 1 G in NS 100 ML IV SCH (01:00)
[2017-07-27] MEDS: HYDROCODONE/APAP 5mg/325mg TABLET PO PRN ×2 (03:10→21:47)
[2017-07-27] MEDS: NS 1,000 ML IV SCH ×2 (06:24→19:59)
--- NOTE | 2017-07-27 10:16 | Progress Note ---
- Date 07/27/17 Subjective: Eating breakfast. Seems confused but nods "no" to pain. Would like some help cleaning up today. No fevers, chills, nausea. Eating well. Objective Vital signs: Temperature 98.2 F 07/27/17 07:36 Pulse Rate 67 07/27/17 07:36 Respiratory Rate 16 07/27/17 07:36 Blood Pressure 139/68 07/27/17 07:36 Pulse Oximetry 97 07/27/17 07:36 Height/Weight/BMI: Height 1.6 m Weight 52.8 kg Body Mass Index 20.5 - Constitutional Present: no acute distress, cooperative - Routine HEENT Exam Head: Present: normocephalic, atraumatic Eye: Present: PERRL. Absent: conjunctival icterus ENT: Present: mucous membranes moist, oropharynx clear - Routine Respiratory Exam Present: CTA bilaterally. Absent: rales - Routine Cardiovascular Exam Present: RRR. Absent: murmur - Routine Abdominal Exam Present: soft, non distended, non tender - Routine Extremities Exam Present: no edema, non tender - Routine Skin Exam Present: dry. Absent: rash - Routine Neurological Exam Present: alert, moving all extremities (flat affect, slow to answer) Results - Labs CBC & Chem 7: 07/27/17 03:52 07/27/17 03:52 Assessment and Plan Assessment and Plan: Impression Left IT hip fracture s/p mechanical fall. Ischemic stroke. 09/10/16. On Plavix. A. fib - occurred during CEA - not on anticoagulation Dyslipidemia. Hypertension CKD-stage III Hypothyroidism Macular degeneration. 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 Recheck CBC and renal panel in AM to ensure no worsening leukocytosis or electrolyte derangements. PT/OT evaluation; may need IRU care. Continue current medications but increase lisinopril to 20 mg daily and monitor BP. DVT Prophylaxis: SCD's, other (plavix resumed ) Resuscitation Status: Full Code - Physician Narrative Physician: Jaqui Doe MD Narrative: Date: 07/27/17 Time: 1012 Hospital Course Summary Disclaimer: The visit summary below is not to be considered part of the above Progress Note. Hospital Course: 07/25/17-hospital admission Admit, inpatient status under the hospitalist service with consultation placed to Dr. Hathaway. NPO at midnight. Consult PT/OT after surgery. History of A. fib and stroke - monitor heart rate/rhythm on telemetry and check EKG. She is not anticoagulated but does take Plavix and amiodarone. Will check platelet function test and hold Plavix. Preop labs were stable. Chest x-ray shows no acute abnormality on my read. We'll start senna plus, and MiraLAX for bowel motivation. Anticipate possibility of acute delirium/encephalopathy and provide safe environment. Could consider low-dose Haldol if needed. For pain control, [place] 5 or Fentanyl 50 mcg, PRN. She vomited once after a pain med was given in the ED - will have Zofran available PRN. Resume home meds including Lisinopril, Remeron, Zocor. CODE STATUS was discussed. Ramona's daughter, Yareli is her healthcare DPOA. While at the facility. She has a DO NOT RESUSCITATE order, at this time Ramona would like to retract that and requests full resuscitation. Yareli states that she is mentally clear at this time and would like to honor her wish. 07/26/17-day of surgery-ORIF left IT fx. 07/27/17- POD #1- increase lisinopril to 20 mg daily, monitor WBC.
[2017-07-27] MEDS: CLOPIDOGREL 75 MG TABLET PO SCH (10:17)
[2017-07-27] MEDS: LUTEIN 20 MG CAPSULE PO SCH (10:17)
[2017-07-27] MEDS: AMIODARONE 200 MG TABLET PO SCH ×2 (10:18→20:00)
[2017-07-27] MEDS: SENNA + DOCUSATE TABLET PO SCH ×2 (10:18→20:00)
[2017-07-27] MEDS: ASPIRIN 81 MG CHEWABLE TABLET PO SCH (10:18)
[2017-07-27] MEDS: LISINOPRIL 20 MG TABLET PO SCH (10:18)
[2017-07-27] MEDS: POLYETHYL GLYCOL 3350 17gm PACKET PO SCH (10:19)
[2017-07-27] MEDS: LISINOPRIL 10 MG TABLET PO SCH (11:53)
--- NOTE | 2017-07-27 11:57 | Operative Note ---
DATE OF SURGERY 07/26/2017 PREOPERATIVE DIAGNOSIS Left nondisplaced left trochanteric hip fracture, two part. POSTOPERATIVE DIAGNOSIS Left nondisplaced left trochanteric hip fracture, two part. PROCEDURE Intramedullary fixation of left intertrochanteric hip fracture. SURGEON Rich Hathaway MD ANESTHESIA TIVA COMPLICATIONS None. EBL/FLUIDS Please see anesthetic record. DESCRIPTION OF PROCEDURE Mrs. Nguyen and her left hip were identified and marked in her hospital room bed. She was brought back to the operating suite and placed under general anesthesia. She was then placed on the fracture table. Both feet were placed in well-padded traction boots. The left leg was placed into neutral position. The right leg was placed into extension. Fluoroscopic imaging confirmed the nondisplaced nature of the fracture. The left lower extremity was then prepped and draped in my normal sterile fashion. Time-out was performed. A 3-cm incision was made proximally to the greater trochanter. Sharp dissection was carried down to the trochanter. The proximal femur was then opened over a guide pin. I then placed a 12.5 reamer down the canal, then placed a short 11- mm Gamma nail into the proximal femur. An 85-mm lag screw was then placed over a guidewire into a center-center location to the femoral head. The lag screw was locked proximally with the locking screw. A interlocking screw was then placed distally through the nail using the aiming arm. The reamer was removed. All wounds were thoroughly irrigated and closed in layers. I then injected 3 g of TXA at the fracture site with a spinal needle. The drapes were then removed. The patient was taken out of the traction boots and allowed to awaken from general anesthesia and taken to the recovery room under the care of Anesthesia. She tolerated the procedure well. There were no complications. ROGER
[2017-07-27] MEDS: ACETAMINOPHEN 500 MG TABLET PO PRN (16:27)
[2017-07-27] MEDS: MIRTAZAPINE 15 MG TABLET PO SCH (20:00)
[2017-07-27] MEDS: SIMVASTATIN 20 MG TABLET PO SCH (20:00)
[2017-07-28] MEDS: NS 1,000 ML IV SCH ×3 (04:11→19:26)
[2017-07-28] MEDS: SENNA + DOCUSATE TABLET PO SCH ×2 (08:00→20:16)
[2017-07-28] MEDS: LISINOPRIL 20 MG TABLET PO SCH (08:00)
[2017-07-28] MEDS: LUTEIN 20 MG CAPSULE PO SCH (08:00)
[2017-07-28] MEDS: ASPIRIN 81 MG CHEWABLE TABLET PO SCH (08:00)
[2017-07-28] MEDS: POLYETHYL GLYCOL 3350 17gm PACKET PO SCH (08:01)
[2017-07-28] MEDS: AMIODARONE 200 MG TABLET PO SCH ×2 (08:01→20:17)
[2017-07-28] MEDS: CLOPIDOGREL 75 MG TABLET PO SCH (08:01)
--- NOTE | 2017-07-28 10:27 | Progress Note ---
- Date 07/28/17 Subjective: Remains pleasantly confused. Doesn't eat much but her son is at the bedside and helping to feed her. He is angry that she is not getting physical therapy three times daily. He states that they have made arrangements for her discharge to [facility] tomorrow. Ramona denies pain currently, is up to the chair and eating some breakfast. No fevers, chills. Objective Vital signs: Temperature 99.1 F 07/28/17 07:12 Pulse Rate 61 07/28/17 08:00 Respiratory Rate 07/28/17 07:12 Blood Pressure 157/68 H 07/28/17 07:12 Pulse Oximetry 96 07/28/17 07:12 Height/Weight/BMI: Height 1.6 m Weight 52.8 kg Body Mass Index 20.5 - Constitutional Present: no acute distress, well nourished, well developed, cooperative - Routine HEENT Exam Head: Present: normocephalic, atraumatic Eye: Present: PERRL. Absent: conjunctival icterus ENT: Present: mucous membranes moist, oropharynx clear - Routine Respiratory Exam Present: CTA bilaterally. Absent: rhonchi, wheezes, crackles - Routine Cardiovascular Exam Present: RRR, no murmur - Routine Abdominal Exam Present: soft, non distended, non tender - Routine Extremities Exam Present: no edema, pulses intact - Routine Skin Exam Present: dry, warm. Absent: rash - Routine Neurological Exam Present: alert, normal speech - Routine Psychiatric Exam Present: unable to assess Results - Labs CBC & Chem 7: 07/28/17 09:21 07/28/17 06:45 Labs: UA assessed at admission and normal with no evidence of infection. Assessment and Plan Assessment and Plan: Impression Left IT hip fracture s/p mechanical fall. Ischemic stroke. 09/10/16. On Plavix. A. fib - occurred during CEA - not on anticoagulation Dyslipidemia. Hypertension CKD-stage III Hypothyroidism Macular degeneration. 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 Recheck CBC and renal panel in AM to ensure no worsening leukocytosis or electrolyte derangements. PT/OT evaluation; may need IRU care. Continue current medications but increase lisinopril to 20 mg daily and monitor BP. DVT Prophylaxis: SCD's, other (plavix) Resuscitation Status: Full Code - Physician Narrative Physician: Jaqui Doe MD Narrative: Date: 07/28/17 Time: 1024 Hospital Course Summary Disclaimer: The visit summary below is not to be considered part of the above Progress Note. Hospital Course: 07/25/17-hospital admission Admit, inpatient status under the hospitalist service with consultation placed to Dr. Hathaway. NPO at midnight. Consult PT/OT after surgery. History of A. fib and stroke - monitor heart rate/rhythm on telemetry and check EKG. She is not anticoagulated but does take Plavix and amiodarone. Will check platelet function test and hold Plavix. Preop labs were stable. Chest x-ray shows no acute abnormality on my read. We'll start senna plus, and MiraLAX for bowel motivation. Anticipate possibility of acute delirium/encephalopathy and provide safe environment. Could consider low-dose Haldol if needed. For pain control, [place] 5 or Fentanyl 50 mcg, PRN. She vomited once after a pain med was given in the ED - will have Zofran available PRN. Resume home meds including Lisinopril, Remeron, Zocor. CODE STATUS was discussed. Ramona's daughter, Yareli is her healthcare DPOA. While at the facility. She has a DO NOT RESUSCITATE order, at this time Ramona would like to retract that and requests full resuscitation. Yareli states that she is mentally clear at this time and would like to honor her wish. 07/26/17-day of surgery-ORIF left IT fx. 07/27/17- POD #1- increase lisinopril to 20 mg daily, monitor WBC. 07/28/17 - POD #2- working with PT yesterday and tolerating well. She remains pleasant confused (baseline per family). Not eating well but this is also chronic per report. WBC normalized. BP improved with lisinopril back to home dose 20 mg today. Continue to monitor. Will discuss with case management regarding DC planning. IRU screen was placed but per her son the patient is going to be discharged to [facility] tomorrow.
[2017-07-28] MEDS: ACETAMINOPHEN 500 MG TABLET PO PRN (19:25)
[2017-07-28] MEDS: MIRTAZAPINE 15 MG TABLET PO SCH (20:17)
[2017-07-28] MEDS: SIMVASTATIN 20 MG TABLET PO SCH (20:17)
[2017-07-29] MEDS: NS 1,000 ML IV SCH ×2 (05:17→08:22)
[2017-07-29 08:25] VITALS: RESP 18
[2017-07-29] MEDS: POLYETHYL GLYCOL 3350 17gm PACKET PO SCH (09:42)
[2017-07-29] MEDS: CLOPIDOGREL 75 MG TABLET PO SCH (09:44)
[2017-07-29] MEDS: LUTEIN 20 MG CAPSULE PO SCH (09:44)
[2017-07-29] MEDS: ASPIRIN 81 MG CHEWABLE TABLET PO SCH (09:44)
[2017-07-29] MEDS: SENNA + DOCUSATE TABLET PO SCH (09:45)
[2017-07-29] MEDS: AMIODARONE 200 MG TABLET PO SCH (10:06)
[2017-07-29] MEDS: LISINOPRIL 20 MG TABLET PO SCH (10:06)
--- NOTE | 2017-07-29 11:32 | Extended Care Facility Orders ---
Admission Orders Admit to:: Group Home Allergies/Adverse Reactions: Allergies morphine Adverse Reaction (Mild, Verified 09/26/15 08:04) VOMITS Admitting Diagnosis: Left IT fracture Admitting Physician: Kalli Ellis MD Attending Physician: Kalli Ellis MD Code Status: Full Code Anticiapted Length of Stay: 30 days or less Rehab Potential: fair Rehab Prognosis: fair Diet: 07/26/17 Dinner Regular Diet [DIET] Diet Modifications: Food Consistency: REGCON May use Facility Protocol or Standing Orders: Yes May have flu vaccine: Yes Evaluations/Treatment: PT, OT Group Home Certification: I certify that SNF services are required to be given on an Inpatient basis because of the patients need for assisted care on a continuing basis for the condition(s) for which he/she received inpatient hospital services prior to his/her transfer to the SNF. SNF inpatient care is necessary for the following reasons Indication for Group Home: Wound Care/Assessment, Med Admininistration, Other (PT, OT) - Additional Information In Event of Arrest: Start CPR,call 911,send patient to the ER Resident is Aware of Diagnosis: Yes Referrals: Evan Mason PA [Physician Gamma Ray Operator] - 3 Weeks Barry Reyes DO [Family Provider] - (f-u in 1 week, or if he is not seeing patient while in SNU, f-u with him on dismissal from SNU.) Additional Orders: Continue bladder training. DC Self tomorrow if pt doing well with bladder training. Repeat CBC and BMP 08/05/17
--- NOTE | 2017-07-29 12:05 | Discharge Summary ---
Discharge Information Date of admission: 07/25/17 17:37 Anticipated date of discharge: 07/29/17 Attending Physician: Kalli Ellis MD Primary care physician: Barry Reyes DO Consults: 07/25/17 19:05 Physician Consult [CONS] Routine Consulting Provider: Behzad Hathaway Reason For Exam: hip fracture - Discharge Diagnosis (1) Intertrochanteric fracture of left hip Status: Acute Left IT hip fracture s/p mechanical fall. Ischemic stroke. 09/10/16. On Plavix. A. fib - occurred during CEA - not on anticoagulation Dyslipidemia. Hypertension CKD-stage III Hypothyroidism Macular degeneration. 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 PROCEDURE Intramedullary fixation of left intertrochanteric hip fracture. SURGEON Rich Hathaway MD - Laboratory Labs: 07/29/17 05:05 07/29/17 05:05 Creatinine trend 07/25/17 07/26/17 07/27/17 17:42 04:23 03:52 Creatinine 1.1 1.4 H D 0.5 L D 07/28/17 07/29/17 06:45 05:05 Creatinine 1.1 D 1.2 Hemoglobin trend 07/25/17 07/27/17 07/28/17 17:42 03:52 09:21 Hgb 12.9 11.3 L 9.6 L D 07/29/17 05:05 Hgb 9.8 L - Radiology Radiology: Date of Exam: 07/25/17 Indication: Fall. L hip Pain PROCEDURE: XR pelvis w/ 2 view LT hip: Findings: Irregularity of the lateral cortex of the left femoral neck which is partially obscured by overlapping greater trochanter. No additional area concerning for acute fracture. No dislocation. Diffuse bony demineralization limiting detection of nondisplaced fractures. Large calcified fibroid in the pelvis. Impression: Possible left femoral neck fracture. Recommend CT or MRI for further evaluation. Date of Exam: 07/25/17 PROCEDURE: MR hip LT wo con: Comparison: Left hip radiographs and CT from earlier today Findings: Vertically oriented linear edema in the intertrochanteric area of the left femur consistent with a nondisplaced fracture. This exits the lateral cortex of the neck at the area of cortical irregularity seen by CT and x-ray. This extends inferiorly and posteriorly into the greater trochanter and intertrochanteric region. No additional acute fractures seen. 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 Mild overlying subcutaneous edema. There is also edema within the obturator musculature probably due to partial tearing or strain. The remaining muscular signal intensity is normal. Impression: Nondisplaced intertrochanteric left femoral fracture. Date of Exam: 07/25/17 Indication: L Hip Injury PROCEDURE: CT hip LT wo con: Findings: Bony demineralization limiting detection of nondisplaced fractures. Although there is an area of cortical irregularity on the lateral basal cervical portion of the left femoral neck, there is no discrete fracture line appreciated. No dislocation. Hip joint spaces obtained. Self catheter within the bladder. Soft tissues of the pelvis are otherwise unremarkable. There is soft tissue contusion in the left hip area subcutaneous fat. Muscular attenuation is grossly normal. Impression: No definite fracture of the left hip. If there is continued pain or clinical concern, further evaluation with MRI would be recommended given the patient's age and bony demineralization. Date of Exam: 07/25/17 Indication: Pain, Injury, fall, dementia PROCEDURE: CT head/brain wo con: FINDINGS: The ventricles are of normal size, shape, and configuration for the patient's age. Old right frontal lobe infarct and bilateral basal ganglia lacunar infarcts. There is no evidence of acute intracranial hemorrhage, midline displacement, or mass effect. There are scattered areas of low attenuation in the white matter which most likely represent changes of chronic microvascular ischemia. The CT attenuation of the brain parenchyma is otherwise normal within the cerebellum, brain stem, and cerebral hemispheres. The tympanic cavities and mastoid air cells are free of appreciable disease. There are no definite fractures of the skull base, calvarium, or visualized portion of the midface. IMPRESSION: No CT evidence of acute traumatic intracranial injury. Date of Exam: 07/25/17 Indication: hip fx - surgical clearance PROCEDURE: XR chest 1V: Findings: The lungs are stable in appearance without new focal airspace consolidation. There is no pleural effusion or pneumothorax. The heart size, pulmonary vascularity and mediastinal contours are unchanged. T11 compression fracture. IMPRESSION: No acute cardiopulmonary disease. Date of Exam: 07/25/17 Ordering Provider: Tristian Goldstein DO PROCEDURE: CT cervical spine wo con: FINDINGS: The alignment of the cervical spine is normal. Multilevel degenerative changes are present. There is no evidence of acute fracture or subluxation of the cervical spine. The atlantoaxial articulation, dens, and upper cervical spine demonstrate no subluxation. The paraspinal soft tissues and spinal canal appear unremarkable. IMPRESSION: No acute traumatic abnormality of the cervical spine. History of Present Illness HPI: Ramona Nguyen is an 87-year-old who was standing out from her breakfast table and states her left foot got caught on the table leg, causing her to fall onto her left hip. She cannot recall if she hit her head. She has a history suspicious for dementia, according to her daughter. Her daughter was also present for interview, and provided collateral history. Stable state Ramona has been in good health recently without illnesses, fevers, cardiac complaints, Neurologic changes, or GI/urinary concerns. She has chronic visual loss and can only see people out of the corner of her eyes. She also is hard of hearing. She does not tend to fall frequently, but does use a walker for ambulation. She had a stroke in spring which also affected the left side. She takes Plavix due to stroke. She was transported to [facility] emergency department, where an initial hip x-ray and CT scans were inconclusive for hip fracture. However, on hip MRI. An intertrochanteric fracture was identified. Cervical spine CT was also obtained showing multilevel degenerative changes without acute abnormality. Head CT likewise was negative for acute findings, but did demonstrate old right frontal lobe infarct in bilateral basal ganglia lacunar infarcts. Labs were overwhelmingly stable with a normal white count, normal hemoglobin of 12.9, and normal chemistry panel. Chest x-ray did not show any acute findings. Dr. Hathaway and Dr. Ellis were notified, and Ramona was admitted to inpatient status for surgical fixation of her hip fracture. Objective Vital signs: Temperature 97.6 F 07/29/17 08:24 Pulse Rate 52 L 07/29/17 08:24 Respiratory Rate 18 07/29/17 08:24 Blood Pressure 153/87 H 07/29/17 08:24 Pulse Oximetry 95 07/29/17 08:24 Height/Weight/BMI: Height 1.6 m Weight 57.7 kg Body Mass Index 20.5 - Constitutional Present: no acute distress, well developed, thin - Routine HEENT Exam Head: Present: normocephalic, atraumatic - Routine Respiratory Exam Present: CTA bilaterally. Absent: wheezes - Routine Cardiovascular Exam Present: RRR, no murmur - Routine Abdominal Exam Present: soft, non distended, non tender - Routine Extremities Exam Present: no edema, normal capillary refill - Routine Skin Exam Present: dry, warm - Routine Neurological Exam Present: alert, normal speech - Routine Lymphatic Exam Lymphatic: Absent: adenopathy - Routine Psychiatric Exam Present: normal affect, cooperative Hospital Course This is a general summary of the patient's hospital course. For more details refer to the complete medical record. Hospital course: 07/25/17-hospital admission Admit, inpatient status under the hospitalist service with consultation placed to Dr. Hathaway. NPO at midnight. Consult PT/OT after surgery. History of A. fib and stroke - monitor heart rate/rhythm on telemetry and check EKG. She is not anticoagulated but does take Plavix and amiodarone. Will check platelet function test and hold Plavix. Preop labs were stable. Chest x-ray shows no acute abnormality on my read. We'll start senna plus, and MiraLAX for bowel motivation. Anticipate possibility of acute delirium/encephalopathy and provide safe environment. Could consider low-dose Haldol if needed. For pain control, [place] 5 or Fentanyl 50 mcg, PRN. She vomited once after a pain med was given in the ED - will have Zofran available PRN. Resume home meds including Lisinopril, Remeron, Zocor. CODE STATUS was discussed. Ramona's daughter, Yareli is her healthcare DPOA. While at the facility. She has a DO NOT RESUSCITATE order, at this time Ramona would like to retract that and requests full resuscitation. Yareli states that she is mentally clear at this time and would like to honor her wish. 07/26/17-day of surgery-ORIF left IT fx. 07/27/17- POD #1- increase lisinopril to 20 mg daily, monitor WBC. 07/28/17 - POD #2- working with PT yesterday and tolerating well. She remains pleasant confused (baseline per family). Not eating well but this is also chronic per report. WBC normalized. BP improved with lisinopril back to home dose 20 mg today. Continue to monitor. Will discuss with case management regarding DC planning. IRU screen was placed but per her son the patient is going to be discharged to [facility] tomorrow. 07/29/17-POD #3-patient discharged to [facility] in [place] today. Labs are stable. Pain is controlled. Will need to continue to trend hemoglobin. Time spent with patient: discharge greater than 30 minutes Resuscitation Status: Full Code Discharge Plan - Discharge Disposition Discharge Date: 07/29/17 Disposition: 03 To [facility] (SNF) *Condition: Stable Reason For Visit (Visit label in EMR): Left IT fracture - Discharge Medications *Discharge Medications: New Hydrocodone/APAP 5/325 [[place] 5/325] 1 - 2 tab PO Q6H PRN #20 tab PRN Reason: Pain PEG 3350 17gm PACKET [Miralax] 17 gm PO DAILY packet Senna + Docusate [Senna Plus Tablet] 1 tab PO BID tab Acetaminophen [Tylenol] 650 mg PO Q5H PRN tab PRN Reason: Discomfort Aspirin Chewable [ASA] 81 mg PO DAILY tab.chew Continue Lutein 20 mg PO DAILY #0 Clopidogrel Bisulfate [Clopidogrel] 75 mg PO DAILY #0 Simvastatin [Zocor] 20 mg PO HS 30 Days #30 tab Amiodarone [Pacerone] 200 mg PO BID Lisinopril [Prinivil] 20 mg PO DAILY Mirtazapine [Remeron] 15 mg PO HS - Discharge Packet/Instructions *Diet: regular diet *Activity: PT / OT to work with mobility, txfrs, ADLs, and exercises. Use walker with WBAT. *Wound Care: Keep the wound clean and dry for 2 weeks. Report any drainage or other concerns. Change the dressing PRN. Remove the dressing after 2 weeks if there are no concerns. Additional Instructions: TYlenol, Atwater per MAR *Expected Signs/Symptoms: improvement in strength and pain *Notify Physician if: you develop fever, redness around wound, or other symptoms *During Business Hours Contact: your nurse at [facility] *After Business Hours Contact: your nurse at [facility] *Pending Lab/Results: No Pending Lab - Referrals/Follow Up *Referrals/Follow Up: Evan Mason PA [Physician Oxyacetylene Burner] - 3 Weeks Barry Reyes DO [Family Provider] - (f-u in 1 week, or if he is not seeing patient while in SNU, f-u with him on dismissal from [facility].) - Patient Handouts Patient [place]outs: [facility] [place] [facility] [place] - Dismissal Complete Discharge Instructions are:: Complete Physician Narrative - Narrative Attestation Narrative: Date: 07/29/17 Time: 2300 I have independently evaluated and examined this patient. I reviewed the chart, the patient's history, and the CLINIC SPECIALIST/PA's documented findings as above. We discussed and formulated the assessment and plan as above with additions as below: Mrs. Nguyen up in a chair when seen in nursing reports she tolerated pivoting to the chair with minimal difficulty although the patient does not recall how she got from the bed to the chair. Patient denies pain but really is unable to provide any meaningful history at the time of assessment. Self catheter remains in place and bladder training will be initiated with recommendation to catheter be discontinued tomorrow. NAD, pleasantly confused Respirations are nonlabored with good airflow and clear breath sounds Regular cardiac rhythm, no peripheral edema Bradycardia noted, blood pressure is stable-Dr. De Luna notified of the relatively low heart rate for follow-up purposes. Stable for discharge to continue postoperative recovery and more aggressive physical therapy in halfway setting.
[2017-07-29 12:13] VITALS: BP 127/73; PULSE 53; TEMP 98.8; O2SAT 92
--- NOTE | 2017-07-29 12:44 | Orthopedic Progress Note ---
Date: Date: 07/29/17 Time: 1241 Subjective/Severity of Illness: Ramona is sitting in her chair this AM. She appears comfortable but is not communicating. Her son is in the room and he reports she is at her baseline mentally. The son is frustrated with the lack of PT on the weekend but otherwise had no concerns. Orthopedic Objective PO Vital signs: Temperature 98.8 F 07/29/17 12:12 Pulse Rate 53 L 07/29/17 12:12 Respiratory Rate 18 07/29/17 12:12 Blood Pressure 127/73 07/29/17 12:12 Pulse Oximetry 92 07/29/17 12:12 Height and Weight: Height 5 ft 3 in Weight 127 lb 3.307 oz Body Mass Index 20.5 - Constitutional General Appearance: Present: alert, other (Very hard of hearing and doesn't interact much this AM.) - Respiratory Exam Present: non-labored - Surgical Site Incision: dressing intact, no drainage - Integumentary Exam Present: pink, warm, dry - Neurological Exam Present: no deficits - Psychiatric Exam Present: alert - Labs Result Diagrams: 07/29/17 05:05 07/29/17 05:05 Abnormal lab results 07/29/17 07/29/17 Range/Units 05:05 05:05 RBC 3.29 L (4.00-5.20) M/MM3 Hgb 9.8 L (12-16) GM/DL Hct 31.5 L (36-46) % Chloride 114 H (98-107) MEQ/L BUN 22.0 H (7-17) MG/DL Calcium 8.3 L (8.4-10.2) MG/DL Albumin 3.3 L (3.5-5.0) G/DL H & H 07/25/17 07/26/17 07/27/17 Range/Units 17:42 04:23 03:52 Hgb 12.9 12.0 11.3 L (12-16) GM/DL Hct 39.8 37.4 36.0 (36-46) % 07/28/17 07/29/17 Range/Units 09:21 05:05 Hgb 9.6 L D 9.8 L (12-16) GM/DL Hct 29.7 L D 31.5 L (36-46) % Orthopedic Assessment and Plan (1) Intertrochanteric fracture of left hip Status: Acute Qualifiers: Encounter type: initial encounter Fracture type: closed Fracture alignment: nondisplaced Qualified Code(s): S72.145A - Nondisplaced intertrochanteric fracture of left femur, initial encounter for closed fracture Assessment and Plan: Pt to be discharge today. Will need f/u with me in 3 weeks. Dressing / wound care needs addressed on discharge sheet. Pt may be WBAT. Lovenox x 30 days post op for DVT protection. - Anticoagulation Therapy Anticoagulation: Lovenox 40 mg SQ Daily x 30 days from day of surgery Hospital Course Summary Disclaimer: The visit summary below is not to be considered part of the above Progress Note. Hospital Course: 07/25/17-hospital admission Admit, inpatient status under the hospitalist service with consultation placed to Dr. Hathaway. NPO at midnight. Consult PT/OT after surgery. History of A. fib and stroke - monitor heart rate/rhythm on telemetry and check EKG. She is not anticoagulated but does take Plavix and amiodarone. Will check platelet function test and hold Plavix. Preop labs were stable. Chest x-ray shows no acute abnormality on my read. We'll start senna plus, and MiraLAX for bowel motivation. Anticipate possibility of acute delirium/encephalopathy and provide safe environment. Could consider low-dose Haldol if needed. For pain control, [place] 5 or Fentanyl 50 mcg, PRN. She vomited once after a pain med was given in the ED - will have Zofran available PRN. Resume home meds including Lisinopril, Remeron, Zocor. CODE STATUS was discussed. Ramona's daughter, Yareli is her healthcare DPOA. While at the facility. She has a DO NOT RESUSCITATE order, at this time Ramona would like to retract that and requests full resuscitation. Yareli states that she is mentally clear at this time and would like to honor her wish. 07/26/17-day of surgery-ORIF left IT fx. 07/27/17- POD #1- increase lisinopril to 20 mg daily, monitor WBC. 07/28/17 - POD #2- working with PT yesterday and tolerating well. She remains pleasant confused (baseline per family). Not eating well but this is also chronic per report. WBC normalized. BP improved with lisinopril back to home dose 20 mg today. Continue to monitor. Will discuss with case management regarding DC planning. IRU screen was placed but per her son the patient is going to be discharged to [facility] tomorrow. 07/29/17-POD #3-patient discharged to [facility] in [place] today. Labs are stable. Pain is controlled. Will need to continue to trend hemoglobin.
== END 2017-07-29 14:00 | DRG 482 ==
LOC: ED 11:27 → SRG 17:37
PROVIDERS: ADMIT Internal Medicine; ATTEND Internal Medicine

== ENCOUNTER 2017-09-12 14:05 | Inpatient (IN) ==
--- NOTE | 2017-09-12 15:15 | History & Physical Report ---
History of Present Illness Date: 09/12/17 Chief complaint: ALDEN, dehydration, bradycardia HPI: Smiley is a pleasant 87-year-old female who is known to the hospitalist services from recent admission in July 2017. Was admitted that time following a fall with a left hip fracture. She tolerated this well, was discharged to the [facility] for skilled rehabilitation and return home with her family last week on 09/04/17. Since that time. Family has noted that she is had a decrease in her appetite and oral intake. She has been able to get up and ambulate with assistance. On Saturday09/10/17. She fell which was witnessed by a nurse at home. At that time it was not felt that she had indicate any injuries and she was not evaluated. She was taken to see primary care provider, Dr. Reyes today for evaluation. At that time she was found to be hypotensive 80s systolic. Basic labs were obtained that did reveal elevation in creatinine up to 2.3, baseline 1.3. Electrolytes were also abnormal, which was concerning for dehydration. She was noted to be bradycardic 38-42 per minute. Given these findings the hospitalist services were contacted and accepted patient for direct admission to [facility] for further evaluation and workup. She is admitted as outpatient observation. She is alert and oriented on arrival to [facility]. She is accompanied with 2 daughters and a granddaughter who is an RN that helps care for her. All history is obtained from family at the bedside. They do report she had recently had a urinary tract infection and has been on Bactrim for 1 week. We did discuss advance directives and she is a DNR. Review of Systems All systems PM: 10-point ROS was reviewed, no additional remarkable complaints except Review of systems: She denies ROS on examination Past Medical History Patient Stated Medical History Cerebrovascular Accident- 09/2016 Atrial fibrillation Hypertension Carotid stenosis GERD Hypothyroidism Dyslipidemia Macular degeneration Surgical History: Right CEA 09/24/[address] Kendrick Elizabeth. Cataracts. Breast biopsy, benign Family History Updates: Father of old age at age 92, mother had an enlarged heart. Her siblings had diabetes, Alzheimer's, pancreatic cancer and breast cancer. - Social History Smoking status: Never smoker Substance use type: does not use Alcohol intake frequency: does not drink Housing: house (children) Current occupational status: retired () Current residence: Apartment/Private Home Social history: Primary care provider Dr. Reyes [employer] Dr. De Luna Medications Home Medications Medication Instructions Recorded Confirmed Type Clopidogrel Bisulfate [Clopidogrel] 75 mg PO DAILY #0 10/15/16 09/12/17 History Lutein 20 mg PO DAILY #0 10/15/16 09/12/17 History Simvastatin [Zocor] 20 mg PO HS 30 Days #30 tab 10/25/16 09/12/17 Rx Amiodarone [Pacerone] 200 mg PO BID 07/25/17 09/12/17 History Lisinopril [Prinivil] 20 mg PO DAILY 07/25/17 09/12/17 History Mirtazapine [Remeron] 15 mg PO HS 07/25/17 09/12/17 History Aspirin Chewable [ASA] 81 mg PO DAILY tab.chew 07/29/17 09/12/17 Rx PEG 3350 17gm PACKET [Miralax] 17 gm PO DAILY packet 07/29/17 09/12/17 Rx Acetaminophen [Tylenol Arthritis] 650 mg PO BID 09/12/17 09/12/17 History Docusate Sodium 100 mg PO DAILY 09/12/17 09/12/17 History Levothyroxine Tab [Synthroid] 25 mcg PO ACB 09/12/17 09/12/17 History Melatonin 5 mg PO HS 09/12/17 09/12/17 History Allergies Allergy/AdvReac Type Severity Reaction Status Date / Time morphine AdvReac Mild VOMITS Verified 09/12/17 15:24 Exam Telemetry Rhythm: Sinus Bradycardia Height/Weight/BMI: Height 1.57 m Weight 52.5 kg Body Mass Index 21.2 - Constitutional Present: no acute distress, well nourished, well developed - Routine HEENT Exam Eye: Present: EOMI ENT: Present: mucous membranes moist, dentition normal - Routine Respiratory Exam Present: CTA bilaterally. Absent: wheezes - Routine Cardiovascular Exam Present: RRR, S1, S2, bradycardia (40). Absent: murmur - Routine Abdominal Exam Present: soft, normoactive bowel sounds, non distended. Absent: tenderness - Routine Extremities Exam Present: normal capillary refill - Routine Back/Spine/Pelvis Exam Back/Spine: Present: full ROM - Routine Skin Exam Present: intact, dry, warm - Routine Neurological Exam Present: alert, oriented X3, CN II-XII intact - Routine Psychiatric Exam Present: normal affect, cooperative Results - Labs CBC & Chem 7: 09/12/17 16:07 09/12/17 16:07 Assessment and Plan (1) ALDEN (acute kidney injury) Current visit: Yes Status: Acute Assessment and Plan: Impression Acute kidney injury- creatinine today 2.3, baseline 1.3 Dehydration with Hyperkalemia and Hypernatremia Recent UTI (Has been on Bactrim 1 week) [id number] Atrial fibrillation Hypertension Carotid stenosis GERD Hypothyroidism Dyslipidemia Macular degeneration Plan Admit patient as outpatient observation under the care of Dr Kennedy for ALDEN, Dehydration Will obtain CBC and BMP on arrival for further medical workup. Initiate 1/2 NS at 100 ml/hr for hydration Will check UA given recent reported UTI. She has been on Bactrim for 1 week which has likely led to ALDEN and hyperkalemia. Monitor renal function closely. Monitor cardiac rhythm given bradycardia. Will stop Amiodarone, unfortunately the half life is approx 60 days. May need to discuss this with Dr De Luna prior to discharge. SCDs to bilateral lower ext for DVT ppx. She does wish to be a do not resuscitate and this order is written Will need to review other home medications once reconciled Will discuss further orders and plan of care with attending, Dr. Kennedy At time of discharge medical care will return to primary care provider, Dr Reyes [facility] hospital[facility] note: Seen and examined patient on same day as the above note. Agree with history, physical, assessment and plan. Comprehensive physical findings correlate to the above note. Subjective: receive report from Dr. Reyes. Concern of overdose of amiodarone, dehydration and possible UTI. Objective: no apparent distress. 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 Chest clear to auscultation bilaterally. S1 S2 +0. Heels have bilateral wounds chronically. Diffuse bruising with plausible mechanism from falls Assessment and plan: acute kidney failure secondary to medications. Beginning hydration. Will likely decrease amiodarone on home dose and discontinue Bactrim altogether. No UTI found. Changing patient to inpatient status as it will likely require 2 entire days of hydration at a moderate rate. She is older and thus more likely to have adverse effects from very aggressive rehydration. Documented on Dragon speech to text. Efforts to correct speech recognition errors performed, but variation may exist DVT Prophylaxis: SCD's Resuscitation Status: Do Not Resuscitate - Physician Narrative Narrative: Date: 09/12/17 Time: 1510 Hospital Course Summary Disclaimer: The visit summary below is not to be considered part of the above Progress Note. Hospital Course: Impression Acute kidney injury- creatinine today 2.3, baseline 1.3 Dehydration with Hyperkalemia and Hypernatremia Recent UTI (Has been on Bactrim 1 week) [id number] Atrial fibrillation Hypertension Carotid stenosis GERD Hypothyroidism Dyslipidemia Macular degeneration Plan Admit patient as outpatient observation under the care of Dr Kennedy for ALDEN, Dehydration Will obtain CBC and BMP on arrival for further medical workup. Initiate 1/2 NS at 100 ml/hr for hydration Will check UA given recent reported UTI. She has been on Bactrim for 1 week which has likely led to ALDEN and hyperkalemia. Monitor renal function closely. Monitor cardiac rhythm given bradycardia. Will stop Amiodarone, unfortunately the half life is approx 60 days. May need to discuss this with Dr De Luna prior to discharge. SCDs to bilateral lower ext for DVT ppx. She does wish to be a do not resuscitate and this order is written Will need to review other home medications once reconciled Will discuss further orders and plan of care with attending, Dr. Kennedy At time of discharge medical care will return to primary care provider, Dr Reyes
[2017-09-12] MEDS: 1/2 NS 1,000 ML IV SCH (19:45)
[2017-09-13] MEDS: 1/2 NS 1,000 ML IV SCH ×2 (05:47→16:32)
[2017-09-13] MEDS ORDERED: ACETAMINOPHEN 325 MG TABLET PO PRN ×2 (10:08→16:38)
[2017-09-13] MEDS ORDERED: ACETAMINOPHEN 325 MG TABLET PO ONE (11:15)
--- NOTE | 2017-09-13 15:37 | Wound Care Progress Note ---
Wound Center Progress Note: Pt seen for wound consult per Stacy BROWNING r/t bilateral heel wounds. Pt lying in bed, no complaints of pain, family at bedside. Pt is wearing bilateral foam [place] boots. Pt was recently discharged from [facility] skilled rehab unit. Family reports pt "spent a month in bed." Pt has bilateral heel pressure injuries present on admission. R heel: Deep tissue pressure injury, skin intact , nonblanchable erythema, small circular black area on superior aspect of wound , no drainage. Periwound: blanchable erythema, dry. L heel: Stage 3 pressure injury, 25% slough, 75% pink non-granulating tissue, scant serosanguineous drainage. Periwound: blanchable erythema, dry. Tender/painful upon palpation. Wound dressings tx plan: R heel: cleanse and moisturize daily, cover with 3 x 3 Mepilex, place in [place] boot, float heel. L heel: Cleanse, apply Aquacel Ag to wound bed, cover with 3 x 3 Mepilex, place in [place] boot, float heel, change Aquacel q 3 days.
--- NOTE | 2017-09-13 15:40 | Wound Care Progress Note ---
Wound Management - Patient Status Premedicated Prior to Dressing Change: No - Wound Right Heel Wound Type: Deep tissue pressure injury Wound Present on Admission?: Yes Length: 2 Width: 2 Depth: 0 Wound Bed Appearance: [place] Deborah Wound Appearance: Blanched/Dull Tunneling: No Undermining: No Drainage Amount: None Drainage Odor: No Odor Dressing Status: Changed Primary Dressing: Foam Dressing Dressing Change Date: 09/13/17 Dressing Change Time: 15:00 Dressing Change Patient Tolerance: Tolerated Well (DTPI: Moisturize daily, apply Mepilex and [place] boot.) Left Heel Wound Type: Pressure Injury Wound Present on Admission?: Yes Wound Staging: Stage III Length: 2.3 Width: 1.8 Depth: 0.2 Wound Bed Appearance: Slough Deborah Wound Appearance: Blanched/Dull Tunneling: No Undermining: No Drainage Description: Sanguineous Drainage Amount: Scant Drainage Odor: No Odor Dressing Status: Changed Primary Dressing: Alginate Secondary Dressing: Foam Dressing Dressing Change Date: 09/13/17 Dressing Change Time: 15:00 Dressing Change Patient Tolerance: Tolerated Well (Aqualcel Ag to wound bed, cover with Mepilex, apply [place] boot, change q 3 days)
--- NOTE | 2017-09-13 16:20 | XRay Report ---
Indication: back pain, chronic falls PROCEDURE: XR lumbar spine 2-3V: Encounter: Initial Comparison: CT lumbar and thoracic spine dated October 15, 2016 Findings: Alignment of the lumbar spine is stable. Interval development of mild superior endplate compression deformity of L2. There is also slight worsening in a T11 compression fracture with 30-40% height loss. No additional area concerning for fracture. Mild disk space narrowing at L2-L3. The remaining disk spaces are maintained. Prominent calcified uterine fibroid noted. Impression: New mild compression fracture of L2 and worsening in the existing T11 compression fracture. .
[2017-09-13] MEDS ORDERED: TRAMADOL 50 MG TABLET PO PRN (16:39)
[2017-09-13] MEDS: TRAMADOL 50 MG TABLET PO PRN (16:46)
[2017-09-13 17:53] VITALS: BMI 21.3
--- NOTE | 2017-09-13 18:46 | Progress Note ---
- Date 09/13/17 Subjective: Patient complaining of backache in the lumbar region. States the pain his worst on attempting to sit up and lie down less so with twisting and standing Objective Vital signs: Temperature 98.1 F 09/13/17 16:00 Pulse Rate 45 L 09/13/17 16:00 Respiratory Rate 14 09/13/17 16:00 Blood Pressure 152/58 H 09/13/17 16:00 Pulse Oximetry 95 09/13/17 16:00 Height/Weight/BMI: Height 5 ft 2 in Weight 53 kg Body Mass Index 21.3 - Constitutional Present: well developed, thin - Routine HEENT Exam Eye: Present: EOMI ENT: Present: mucous membranes moist, dentition normal - Routine Respiratory Exam Present: CTA bilaterally. Absent: wheezes - Routine Cardiovascular Exam Present: RRR. Absent: murmur - Routine Abdominal Exam Present: soft, normoactive bowel sounds, non distended. Absent: tenderness - Routine Extremities Exam Present: normal capillary refill - Routine Skin Exam Present: dry, warm - Routine Neurological Exam Present: alert, oriented X3, CN II-XII intact - Routine Lymphatic Exam Lymphatic: Absent: adenopathy - Routine Psychiatric Exam Present: normal affect Results - Labs CBC & Chem 7: 09/13/17 04:34 09/13/17 04:34 Assessment and Plan (1) ALDEN (acute kidney injury) Current visit: Yes Status: Acute (2) Lumbar compression fracture Current visit: Yes Status: Acute (3) Recurrent falls Current visit: Yes Status: Acute Assessment and Plan: Impression Acute kidney injury- creatinine today 1.6, baseline 1.3 Dehydration with Hyperkalemia and Hypernatremia Recent UTI (Has been on Bactrim 1 week) [id number] Atrial fibrillation Hypertension Carotid stenosis GERD Hypothyroidism Dyslipidemia Macular degeneration Plan Patient complaining of back pain. Have ordered plain films and images show new acute compression fracture. Fracture is mild and new at L2 and there is progression at T 11. Ordering physical therapy for the patient Renal function continues to improve but above her baseline. She will need an extra day of hydration. Will repeat lab work in the morning. UA shows no sign of infection sequential compression devices are ordered family continues to be anxious Documented on Dragon speech to text. Efforts to correct speech recognition errors performed, but variation may exist - Physician Narrative Narrative: Date: 09/13/17 Time: 1843 Hospital Course Summary Disclaimer: The visit summary below is not to be considered part of the above Progress Note. Hospital Course: Impression Acute kidney injury- creatinine today 2.3, baseline 1.3 Dehydration with Hyperkalemia and Hypernatremia Recent UTI (Has been on Bactrim 1 week) [id number] Atrial fibrillation Hypertension Carotid stenosis GERD Hypothyroidism Dyslipidemia Macular degeneration Plan Admit patient as outpatient observation under the care of Dr Kennedy for ALDEN, Dehydration Will obtain CBC and BMP on arrival for further medical workup. Initiate 1/2 NS at 100 ml/hr for hydration Will check UA given recent reported UTI. She has been on Bactrim for 1 week which has likely led to ALDEN and hyperkalemia. Monitor renal function closely. Monitor cardiac rhythm given bradycardia. Will stop Amiodarone, unfortunately the half life is approx 60 days. May need to discuss this with Dr De Luna prior to discharge. SCDs to bilateral lower ext for DVT ppx. She does wish to be a do not resuscitate and this order is written Will need to review other home medications once reconciled Will discuss further orders and plan of care with attending, Dr. Kennedy At time of discharge medical care will return to primary care provider, Dr Reyes
[2017-09-14] MEDS: TRAMADOL 50 MG TABLET PO PRN ×2 (02:28→14:20)
[2017-09-14] MEDS: 1/2 NS 1,000 ML IV SCH ×2 (03:37→13:49)
--- NOTE | 2017-09-14 13:18 | History & Physical Report ---
History of Present Illness Date: 09/14/17 HPI: Smiley is a pleasant 87-year-old female who is known to the hospitalist services from recent admission in July 2017. Was admitted that time following a fall with a left hip fracture. She tolerated this well, was discharged to the [facility] for skilled rehabilitation and return home with her family last week on 09/04/17. Since that time, family has noted that she is had a decrease in her appetite and oral intake. She has been able to get up and ambulate with assistance. On Saturday09/10/17. She fell which was witnessed by a nurse at home. At that time it was not felt that she had sustained any injuries and she was not evaluated. She was taken to see primary care provider, Dr. Reyes on the day of admission for evaluation. She was found to be hypotensive with systolic BP in the 80s. Basic labs were obtained that did reveal elevation in creatinine up to 2.3, (baseline 1.3). Electrolytes were also abnormal, which was concerning for dehydration. She was noted to be bradycardic 38-42 per minute. Given these findings the hospitalist services were contacted and accepted patient for direct admission to [facility] for further evaluation and workup. She is admitted as outpatient observation. Family reports she had recently been diagnosed with an urinary tract infection and has been on Bactrim for 1 week. We did discuss advance directives and she is a DNR. Today she is sitting up in the recliner. She appears comfortable. Several family members are in the room with her. She denies Fever, chills to me. She denies cough or sputum production. No SOA or BYERS but she is not ambulating. She denies CP or palp. No N/V/D/C. She denies symptoms. She does have some back pain when moving. Review of Systems All systems PM: 10-point ROS was reviewed, no additional remarkable complaints except Past Medical History Patient Stated Medical History Cerebrovascular Accident Yes: September 2016 Dementia Yes Macular Degeneration Yes: bilateral Cardiac Arrhythmia Yes: AFib Hypertension Yes Other Cardiology Yes: Carotid Stenosis Gastroesophageal Reflux No Disease Hx Urinary Tract Infection Yes Anesthesia Reactions No Surgical History: Right CEA 09/24/[address] Kendrick Elizabeth. Cataracts. Breast biopsy, benign - Social History Current residence: Apartment/Private Home Medications Home Medications Medication Instructions Recorded Confirmed Type Clopidogrel Bisulfate [Clopidogrel] 75 mg PO DAILY #0 10/15/16 09/12/17 History Lutein 20 mg PO DAILY #0 10/15/16 09/12/17 History Simvastatin [Zocor] 20 mg PO HS 30 Days #30 tab 10/25/16 09/12/17 Rx Amiodarone [Pacerone] 200 mg PO BID 07/25/17 09/12/17 History Lisinopril [Prinivil] 20 mg PO DAILY 07/25/17 09/12/17 History Mirtazapine [Remeron] 15 mg PO HS 07/25/17 09/12/17 History Aspirin Chewable [ASA] 81 mg PO DAILY tab.chew 07/29/17 09/12/17 Rx PEG 3350 17gm PACKET [Miralax] 17 gm PO DAILY packet 07/29/17 09/12/17 Rx Acetaminophen [Tylenol Arthritis] 650 mg PO BID 09/12/17 09/12/17 History Docusate Sodium 100 mg PO DAILY 09/12/17 09/12/17 History Levothyroxine Tab [Synthroid] 25 mcg PO ACB 09/12/17 09/12/17 History Melatonin 5 mg PO HS 09/12/17 09/12/17 History Allergies Allergy/AdvReac Type Severity Reaction Status Date / Time morphine AdvReac Mild VOMITS Verified 09/12/17 15:24 Exam Vital Signs: Temperature 98.3 F 09/14/17 07:33 Pulse Rate 52 L 09/14/17 07:33 Respiratory Rate 14 09/14/17 07:33 Blood Pressure 161/71 H 09/14/17 07:33 Pulse Oximetry 97 09/14/17 07:33 Height/Weight/BMI: Height 1.57 m Weight 54 kg Body Mass Index 21.3 Results - Labs CBC & Chem 7: 09/14/17 09:48 09/14/17 09:48 Assessment and Plan (1) ALDEN (acute kidney injury) Current visit: Yes Status: Acute (2) Lumbar compression fracture Current visit: Yes Status: Acute (3) Recurrent falls Current visit: Yes Status: Acute Assessment and Plan: Impression Acute kidney injury- creatinine today 1.6, baseline 1.3 Dehydration with Hyperkalemia and Hypernatremia Recent UTI (Has been on Bactrim 1 week) [id number] Atrial fibrillation Hypertension Carotid stenosis GERD Hypothyroidism Dyslipidemia Macular degeneration Plan Patient complaining of back pain. Have ordered plain films and images show new acute compression fracture. Fracture is mild and new at L2 and there is progression at T 11. Ordering physical therapy for the patient Renal function continues to improve but above her baseline. She will need an extra day of hydration. Will repeat lab work in the morning. UA shows no sign of infection sequential compression devices are ordered family continues to be anxious Documented on Dragon speech to text. Efforts to correct speech recognition errors performed, but variation may exist - Physician Narrative Narrative: Date: 09/14/17 Time: 1314 Hospital Course Summary Disclaimer: The visit summary below is not to be considered part of the above Progress Note. Hospital Course: Impression Acute kidney injury- creatinine today 2.3, baseline 1.3 Dehydration with Hyperkalemia and Hypernatremia Recent UTI (Has been on Bactrim 1 week) [id number] Atrial fibrillation Hypertension Carotid stenosis GERD Hypothyroidism Dyslipidemia Macular degeneration Plan Admit patient as outpatient observation under the care of Dr Kennedy for ALDEN, Dehydration Will obtain CBC and BMP on arrival for further medical workup. Initiate 1/2 NS at 100 ml/hr for hydration Will check UA given recent reported UTI. She has been on Bactrim for 1 week which has likely led to ALDEN and hyperkalemia. Monitor renal function closely. Monitor cardiac rhythm given bradycardia. Will stop Amiodarone, unfortunately the half life is approx 60 days. May need to discuss this with Dr De Luna prior to discharge. SCDs to bilateral lower ext for DVT ppx. She does wish to be a do not resuscitate and this order is written Will need to review other home medications once reconciled Will discuss further orders and plan of care with attending, Dr. Kennedy At time of discharge medical care will return to primary care provider, Dr Reyes
--- NOTE | 2017-09-14 13:25 | Progress Note ---
- Date 09/14/17 Subjective: Smiley is a pleasant 87-year-old female who is known to the hospitalist services from recent admission in July 2017. Was admitted that time following a fall with a left hip fracture. She tolerated this well, was discharged to the [facility] for skilled rehabilitation and return home with her family last week on 09/04/17. Since that time, family has noted that she is had a decrease in her appetite and oral intake. She has been able to get up and ambulate with assistance. On Saturday09/10/17. She fell which was witnessed by a nurse at home. At that time it was not felt that she had sustained any injuries and she was not evaluated. She was taken to see primary care provider, Dr. Reyes on the day of admission for evaluation. She was found to be hypotensive with systolic BP in the 80s. Basic labs were obtained that did reveal elevation in creatinine up to 2.3, (baseline 1.3). Electrolytes were also abnormal, which was concerning for dehydration. She was noted to be bradycardic 38-42 per minute. Given these findings the hospitalist services were contacted and accepted patient for direct admission to [facility] for further evaluation and workup. She is admitted as outpatient observation. Family reports she had recently been diagnosed with an urinary tract infection and has been on Bactrim for 1 week. We did discuss advance directives and she is a DNR. Today she is sitting up in the recliner. She appears comfortable. Several family members are in the room with her. She denies Fever, chills to me. She denies cough or sputum production. No SOA or BYERS but she is not ambulating. She denies CP or palp. No N/V/D/C. She denies symptoms. She does have some back pain when moving. Objective Vital signs: Temperature 98.3 F 09/14/17 07:33 Pulse Rate 52 L 09/14/17 07:33 Respiratory Rate 14 09/14/17 07:33 Blood Pressure 161/71 H 09/14/17 07:33 Pulse Oximetry 97 09/14/17 07:33 Height/Weight/BMI: Height 1.57 m Weight 54 kg Body Mass Index 21.3 Comments: Gen: alert and oriented. NAD. Pleasant and conversive, [place] Skin: warm and dry. Bilateral heel skin breakdown HEENT: NC/AT PERRL, EOMI, Sclera,lids and conjunctiva wnl. MMM. OP clear. Neck: supple. No JVD. Carotids 2+ without bruits Lungs: clear. No rales, rhonchi or wheezes CV: regular rhythm. [place] at times. 2/6 murmur. No edema. Pedal pulses are palpable Abd: soft. +BS. NT/ND MS: reasonable strength and ROM. Neuro: no focal deficit. psy: flat affect Results - Labs CBC & Chem 7: 09/14/17 09:48 09/14/17 09:48 Assessment and Plan (1) ALDEN (acute kidney injury) Current visit: Yes Status: Acute (2) Lumbar compression fracture Current visit: Yes Status: Acute (3) Recurrent falls Current visit: Yes Status: Acute Assessment and Plan: Assessment and Plan: 1. dehydration -IVF -Encourage po intake 2. ALDEN (acute kidney injury) -due to dehydration from poor po intake 3. Lumbar compression fracture -PT to work with her -may need kyphoplasty if pain uncontrollable 4. Recurrent falls -PT 5. HTN -On lisinopril at home which has been held here due to ALDEN and hypotension -BP are climbing. -No known EF. -Will start Norvasc 5 mg daily for now. 6. Hypothyroid -Continue home replacements -Check TSH,FT4 7. PAF -in SR at present. -She is bradycardic. Amio discontinued -If goes back into afib lucas if RVR, may need ppm in order to treat afib/Heart rates -No a candidate for OAC due to falls. -Her Canvas Repairer is Dr. De Luna. Will need to communicate with him at time of dc. -She is on ASA and Plavix at home, will continue that 8. GERD -add ppi 9. HLP -On zocor 20mg at home, resume 10. Recent UTI -Treated with bactrim -Current UA unremarkable 11. Hyperkalemia -Resolved with hydration 12. Hypernatremia -resolved with hydration 13. CVA in 2017 -On ASA, plavix and statin 14. Carotid stenosis -S/P CEA 2016 15. Prophylaxis -SCDs and PPI - Physician Narrative Narrative: Date: 09/14/17 Time: 1321 Hospital Course Summary Disclaimer: The visit summary below is not to be considered part of the above Progress Note.
[2017-09-14] MEDS ORDERED: AMLODIPINE 5 MG TABLET PO SCH (13:45)
[2017-09-14] MEDS: ASPIRIN 81 MG CHEWABLE TABLET PO SCH (13:51)
[2017-09-14] MEDS: CLOPIDOGREL 75 MG TABLET PO SCH (13:51)
[2017-09-14] MEDS: MELATONIN 5 MG TABLET PO SCH (21:23)
[2017-09-14] MEDS: MIRTAZAPINE 15 MG TABLET PO SCH (21:24)
[2017-09-14] MEDS: SIMVASTATIN 20 MG TABLET PO SCH (21:24)
[2017-09-15] MEDS: 1/2 NS 1,000 ML IV SCH ×3 (00:50→14:14)
[2017-09-15] MEDS: PANTOPRAZOLE 20 MG TABLET PO SCH (06:24)
[2017-09-15] MEDS ORDERED: LEVOTHYROXINE 25 MCG TABLET PO SCH (06:30)
[2017-09-15] MEDS ORDERED: AMLODIPINE 10 MG TABLET PO SCH (06:58)
[2017-09-15] MEDS: ASPIRIN 81 MG CHEWABLE TABLET PO SCH (10:26)
[2017-09-15] MEDS: LUTEIN 20 MG CAPSULE PO SCH (10:26)
[2017-09-15] MEDS: DOCUSATE SODIUM 100 MG CAPSULE PO SCH (10:26)
[2017-09-15] MEDS: CLOPIDOGREL 75 MG TABLET PO SCH (10:27)
[2017-09-15] MEDS: LISINOPRIL 5 MG TABLET PO SCH (10:27)
[2017-09-15] MEDS: POLYETHYL GLYCOL 3350 17gm PACKET PO SCH (10:32)
--- NOTE | 2017-09-15 11:41 | Progress Note ---
- Date 09/15/17 Subjective: Smiley is a pleasant 87-year-old female who is known to the hospitalist services from recent admission in July 2017. Was admitted that time following a fall with a left hip fracture. She tolerated this well, was discharged to the [facility] for skilled rehabilitation and return home with her family last week on 09/04/17. Since that time, family has noted that she is had a decrease in her appetite and oral intake. She has been able to get up and ambulate with assistance. On Saturday09/10/17. She fell which was witnessed by a nurse at home. At that time it was not felt that she had sustained any injuries and she was not evaluated. She was taken to see primary care provider, Dr. Reyes on the day of admission for evaluation. She was found to be hypotensive with systolic BP in the 80s. Basic labs were obtained that did reveal elevation in creatinine up to 2.3, (baseline 1.3). Electrolytes were also abnormal, which was concerning for dehydration. She was noted to be bradycardic 38-42 per minute. Given these findings the hospitalist services were contacted and accepted patient for direct admission to [facility] for further evaluation and workup. She is admitted as outpatient observation. Family reports she had recently been diagnosed with an urinary tract infection and has been on Bactrim for 1 week. We did discuss advance directives and she is a DNR. Today she in bed. She does not have her hearing aides in and she is very [place]. She appears comfortable. No family in room today. She states she is "tired". She did not eat breakfast. She is not taking in much po. She denies Fever, chills to me. She denies cough or sputum production. No SOA or BYERS but she is not ambulating. She denies CP or palp. No N/V/D/C. She denies symptoms. She does have some back pain when moving. Objective Vital signs: Temperature 98.6 F 09/15/17 08:00 Pulse Rate 48 L 09/15/17 08:00 Respiratory Rate 16 09/15/17 08:00 Blood Pressure 134/60 09/15/17 08:00 Pulse Oximetry 98 09/15/17 08:00 Height/Weight/BMI: Height 1.57 m Weight 53.9 kg Body Mass Index 21.3 Comments: Gen: alert and oriented. NAD. [place] Skin: warm and dry. Bilateral heel skin breakdown HEENT: NC/AT PERRL, EOMI, Sclera,lids and conjunctiva wnl. MMM. OP clear. Neck: supple. No JVD. Carotids 2+ without bruits Lungs: clear. No rales, rhonchi or wheezes CV: regular rhythm. [place] at times into the low 30s. 2/6 murmur. No edema. Pedal pulses are palpable Abd: soft. +BS. NT/ND MS: reasonable strength and ROM. Neuro: no focal deficit. psy: flat affect Results - Labs CBC & Chem 7: 09/15/17 05:05 09/15/17 05:05 Assessment and Plan (1) ALDEN (acute kidney injury) Current visit: Yes Status: Acute (2) Lumbar compression fracture Current visit: Yes Status: Acute (3) Recurrent falls Current visit: Yes Status: Acute Assessment and Plan: Assessment and Plan: 1. dehydration -IVF, increase for now. -Encourage po intake 2. ALDEN (acute kidney injury) -due to dehydration from poor po intake -Probably near baseline but still appears dry, will increase IVF back to 100ml/ hr 3. Lumbar compression fracture -PT to work with her -may need kyphoplasty if pain uncontrollable 4. Recurrent falls -PT -She may need placement 5. HTN -On lisinopril at home which has been held here due to ALDEN and hypotension -BP are climbing. -No known EF. -Norvasc 5 mg daily and lisinopirl 5mg daily 6. Hypothyroid -Continue home replacements -TSH is high (10.3), FT4 pending. Will increase levothyroxine dose -I suspect she is hypothyroid and this could be contributing to the bradycardia 7. PAF -in SR at present. -She is bradycardic. Amio discontinued -I think she is likely going to need a ppm. We need to communicate with Dr. De Luna this coming week -No a candidate for OAC due to falls. -She is on ASA and Plavix at home, will continue 8. GERD -ppi 9. HLP -On zocor 20mg at home, resume 10. Recent UTI -Treated with bactrim -Current UA unremarkable 11. Hyperkalemia -Resolved with hydration 12. Hypernatremia -A bit elevated again today, will increase IVF back to 100mg/hr 13. CVA in 2017 -On ASA, plavix and statin 14. Carotid stenosis -S/P CEA 2017 15. Prophylaxis -SCDs and PPI - Physician Narrative Narrative: Date: 09/15/17 Time: 1131 Hospital Course Summary Disclaimer: The visit summary below is not to be considered part of the above Progress Note.
[2017-09-15] MEDS ORDERED: ATROPINE 1 MG/ML INJECTION IVP PRN ×2 (12:07→12:40)
[2017-09-15] MEDS ORDERED: ATROPINE 1 MG/ML INJECTION IVP ONE (12:13)
[2017-09-15] MEDS: SIMVASTATIN 20 MG TABLET PO SCH (20:08)
[2017-09-15] MEDS: MIRTAZAPINE 15 MG TABLET PO SCH (20:08)
[2017-09-15] MEDS: MELATONIN 5 MG TABLET PO SCH (20:08)
[2017-09-15] MEDS ORDERED: FALL RISK - PHARMACY CONSULT XX ONE (22:58)
[2017-09-16] MEDS: LEVOTHYROXINE 50 MCG TABLET PO SCH (06:16)
[2017-09-16] MEDS: PANTOPRAZOLE 20 MG TABLET PO SCH (06:16)
[2017-09-16] MEDS: 1/2 NS 1,000 ML IV SCH ×2 (08:26→08:31)
[2017-09-16] MEDS: ASPIRIN 81 MG CHEWABLE TABLET PO SCH (08:34)
[2017-09-16] MEDS: LISINOPRIL 5 MG TABLET PO SCH (08:34)
[2017-09-16] MEDS: DOCUSATE SODIUM 100 MG CAPSULE PO SCH (08:34)
[2017-09-16] MEDS: POLYETHYL GLYCOL 3350 17gm PACKET PO SCH ×2 (08:35→12:58)
[2017-09-16] MEDS: LUTEIN 20 MG CAPSULE PO SCH (08:35)
[2017-09-16] MEDS: CLOPIDOGREL 75 MG TABLET PO SCH (08:35)
[2017-09-16] MEDS ORDERED: AMLODIPINE 5 MG TABLET PO SCH (09:00)
--- NOTE | 2017-09-16 09:54 | Cardiology Consult Note ---
<Deepali Coombs - Last Filed: 09/17/17 09:36> History of Present Illness Consult date: 09/15/17 Requesting physician: Don Mojica Chief complaint: Bradycardia History of present illness: Ramona is an 87-year-old female who was recently admitted in July 2017 following a fall with a left hip fracture. She was discharged to the [facility] for skilled rehabilitation and return home with her family last week on . Since then her family has noted that she has had a decrease in her appetite and oral intake. She has been able to get up and ambulate with assistance. On Saturday09/10/17. She fell which was witnessed by a nurse at home. At that time it was not felt that she had any injuries and she was taken to see primary care provider, Dr. Reyes on 09/12/17 for evaluation. At that time she was found to be hypotensive 80s systolic. Basic labs were obtained that did reveal elevation in creatinine up to 2.3, baseline 1.3. Electrolytes were also abnormal , which was concerning for dehydration. She was noted to be bradycardic 38-42 per minute. Given these findings the hospitalist services were contacted and accepted patient for direct admission to [facility] for further evaluation and workup. Review of Systems - Constitutional Constitutional: Present: anorexia, fatigue, malaise. Absent: chills, fever(s) - EENMT Eyes: Absent: change in vision Balance: Absent: vertigo Mouth/Throat: Absent: sore throat - Cardiovascular Cardiovascular: Present: syncope (falls). Absent: chest pain, palpitations, dyspnea on exertion, orthopnea, edema Rhythm: Present: abnormal rhythm (PAF) Vascular: Absent: pedal edema - Respiratory Respiratory: Absent: cough, dyspnea - Gastrointestinal Gastrointestinal: Absent: constipation, diarrhea, nausea, vomiting - Genitourinary Genitourinary: Absent: dysuria - Musculoskeletal Musculoskeletal: Present: back pain, limited range of motion (hip fx in July) - Integumentary/Breasts Integumentary: Present: wounds (heels bilaterally). Absent: rash - Neurological Neurological: Present: frequent falls, weakness. Absent: dizziness, vertigo - Endocrine Endocrine: Absent: palpitations [facility] Patient Stated Medical History Cerebrovascular Accident Yes: September 2016 Dementia Yes Macular Degeneration Yes: bilateral Cardiac Arrhythmia Yes: AFib Hypertension Yes Other Cardiology Yes: Carotid Stenosis Gastroesophageal Reflux No Disease Hx Urinary Tract Infection Yes Anesthesia Reactions No Surgical History: Right CEA 09/24/[address] Kendrick Elizabeth. Cataracts. Breast biopsy, benign Family History Updates: Father of old age at age 92, mother had an enlarged heart. Her siblings had diabetes, Alzheimer's, pancreatic cancer and breast cancer. - Social History Smoking status: Never smoker Substance use type: does not use Alcohol intake frequency: does not drink Housing: house (children) Current occupational status: retired () Current residence: Apartment/Private Home Medications Home Medications Medication Instructions Recorded Confirmed Type Clopidogrel Bisulfate [Clopidogrel] 75 mg PO DAILY #0 10/15/16 09/12/17 History Lutein 20 mg PO DAILY #0 10/15/16 09/12/17 History Simvastatin [Zocor] 20 mg PO HS 30 Days #30 tab 10/25/16 09/12/17 Rx Mirtazapine [Remeron] 15 mg PO HS 07/25/17 09/12/17 History Aspirin Chewable [ASA] 81 mg PO DAILY tab.chew 07/29/17 09/12/17 Rx PEG 3350 17gm PACKET [Miralax] 17 gm PO DAILY packet 07/29/17 09/12/17 Rx Acetaminophen [Tylenol Arthritis] 650 mg PO BID 09/12/17 09/12/17 History Docusate Sodium 100 mg PO DAILY 09/12/17 09/12/17 History Melatonin 5 mg PO HS 09/12/17 09/12/17 History Amlodipine [Norvasc] 5 mg PO DAILY #30 tab 09/18/17 Rx Levothyroxine Sodium [Synthroid] 50 mcg PO ACB tab 09/18/17 Rx Milk of Magnesia [Mom] 30 ml PO DAILY PRN udc 09/18/17 Rx Pantoprazole Sodium [Protonix] 20 mg PO ACB tablet. 09/18/17 Rx Tramadol [Ultram] 50 - 100 mg PO Q6H PRN #30 tab 09/18/17 Rx Trazodone [Desyrel] 50 mg PO HS #30 tab 09/18/17 Rx Allergies Allergy/AdvReac Type Severity Reaction Status Date / Time morphine AdvReac Mild VOMITS Verified 09/12/17 15:24 Exam Vital signs: Temperature 97 F 09/16/17 07:48 Pulse Rate 51 L 09/16/17 07:48 Respiratory Rate 14 09/16/17 07:48 Blood Pressure 161/85 H 09/16/17 07:48 Pulse Oximetry 97 09/16/17 07:48 - Constitutional no acute distress, thin, cooperative - Routine HEENT Exam Head: Present: normocephalic ENT: Present: mucous membranes moist - Routine Neck Exam Absent: JVD, carotid bruit - Routine Chest/Breast/Axilla Exam Chest wall: Absent: tenderness - Routine Respiratory Exam Present: CTA bilaterally. Absent: rales, wheezes - Routine Cardiovascular Exam Present: S1, S2, no murmur, bradycardia - Routine Abdominal Exam Present: soft, normoactive bowel sounds - Routine Extremities Exam Present: no edema - Routine Skin Exam Present: intact, dry, warm - Routine Neurological Exam Present: alert. Absent: hearing grossly intact - Routine Psychiatric Exam Present: normal affect, normal thought process Results 09/17/17 03:55 09/17/17 03:55 CBC 09/16/17 Range/Units 05:06 WBC 3.4 L (4.5-11.0) T/MM3 RBC 3.65 L (4.00-5.20) M/MM3 Hgb 11.2 L (12-16) GM/DL Hct 36.0 (36-46) % Plt Count 229 (130-400) T/MM3 Neut # (Auto) 2.3 (1.8-7.7) T/MM3 Lymph # (Auto) 0.5 L (1-4.8) T/MM3 [place] # (Auto) 0.3 (0-0.8) T/MM3 Eos # (Auto) 0.2 (0-0.5) T/MM3 Baso # (Auto) 0.0 (0-0.2) T/MM3 Comprehensive Metabolic Panel 09/16/17 Range/Units 05:06 Sodium 144 (134-144) MEQ/L Potassium 4.4 (3.6-5) MEQ/L Chloride 112 H (98-107) MEQ/L Carbon Dioxide 22 (22-30) MEQ/L BUN 20.0 H (7-17) MG/DL Creatinine 1.3 H D (0.7-1.2) mg/dL Glucose 90 (65-110) MG/DL Calcium 9.1 (8.4-10.2) MG/DL Intake and Output 09/15/17 09/16/17 09/16/17 22:59 06:59 14:59 Intake Total 0 / 0 50 / 50 1000 / 1000 Output Total 400 / 400 425 / 425 550 / 550 Balance -400 / -400 -375 / -375 450 / 450 Intake: IV 1000 / 1000 1/2 Ns 1,000 ml @ 100 mls/hr IV 1000 / 1000 .Q10H YING Rx#:[id number] Oral 0 / 0 50 / 50 Output: Urine 400 / 400 425 / 425 550 / 550 Other: Urine Appearance Clear Clear Clear Urine Color Yellow Yellow Pale Yellow Weight 119 lb 0.794 oz Patient Weight 09/17/17 06:59 Weight 119 lb 0.794 oz - Imaging and Cardiology Imaging & Cardiology Narrative: Date of Exam: 09/13/17 Ordering Provider: Jackson Kennedy MD Type of Exam(s): XR lumbar spine 2-3V Reason for Exam(s): back pain, chronic falls Indication: back pain, chronic falls PROCEDURE: XR lumbar spine 2-3V: Encounter: Initial Comparison: CT lumbar and thoracic spine dated October 15, 2016 Findings: Alignment of the lumbar spine is stable. Interval development of mild superior endplate compression deformity of L2. There is also slight worsening in a T11 compression fracture with 30-40% height loss. No additional area concerning for fracture. Mild disk space narrowing at L2-L3. The remaining disk spaces are maintained. Prominent calcified uterine fibroid noted. Impression: New mild compression fracture of L2 and worsening in the existing T11 compression fracture. 09/16/17 09:57 EKG interpretations - EKG EKG results cardiology: sinus rhythm EKG shows: bradycardia - Blocks, axis, hypertrophy, ST abn AV and intraventricular conduction: 1 AV block Repolarization changes or abnormalities: nonspecific abnormality, ST segment, and/or T wave Assessment and Plan - Assessment and Plan (1) Sinus bradycardia Status: Acute denies syncope - 2 recent falls with injuries - May need Linq implant to monitor HR at home - Amiodarone stopped (2) ALDEN (acute kidney injury) Status: Acute per attending -Scr 1.3 today, down from 2.1 (3) Lumbar compression fracture Status: Acute (4) Recurrent falls Status: Acute (5) Essential (primary) hypertension Status: Chronic Suboptimal control - Increase Amlodipine to 10mg - Lasix 40mg IV Q8H - Continue Lisinopril (6) Mixed hyperlipidemia Status: Chronic HLD: Continue Simvastatin (7) Carotid arterial disease Status: Chronic (8) History of CVA (cerebrovascular accident) Problem details: September 2016 Status: Resolved Hx CVA: Continue Aspirin & Plavix - Assessment and Plan Sinus Bradycardia: denies syncope - 2 recent falls with injuries - May need Linq implant to monitor HR at home - Amiodarone stopped ALDEN: Scr 1.3 today, down from 2.1 HTN: Suboptimal control - Increase Amlodipine to 10mg - Lasix 40mg IV Q8H - Continue Lisinopril HLD: Continue Simvastatin Hx CVA: Continue Aspirin & Plavix Thank you for allowing us to participate in the care of this patient. Hospital Course Summary Disclaimer: The visit summary below is not to be considered part of the above Progress Note. <Angelo Rogers - Last Filed: 09/25/17 12:32> [facility] Patient Stated Medical History Cerebrovascular Accident Yes: September 2016 Dementia Yes Macular Degeneration Yes: bilateral Cardiac Arrhythmia Yes: AFib Hypertension Yes Other Cardiology Yes: Carotid Stenosis Gastroesophageal Reflux No Disease Hx Urinary Tract Infection Yes Anesthesia Reactions No Exam Vital signs: Temperature 96.5 F L 09/18/17 08:45 Pulse Rate 45 L 09/18/17 08:45 Respiratory Rate 12 09/18/17 08:45 Blood Pressure 126/66 09/18/17 08:45 Pulse Oximetry 95 09/18/17 08:45 Results 09/18/17 05:00 09/18/17 05:00 Assessment and Plan - Attestation Attestation Narrative: 09/25/17 12:32 Recommendation After examining the patient I agree with the above assessment. I am involved in the formulation of the patient's plan of care. - Assessment and Plan (1) ALDEN (acute kidney injury) Status: Acute (2) Lumbar compression fracture Status: Acute (3) Recurrent falls Status: Acute (4) Sinus bradycardia Status: Acute (5) Essential (primary) hypertension Status: Chronic (6) Mixed hyperlipidemia Status: Chronic (7) Carotid arterial disease Status: Chronic (8) History of CVA (cerebrovascular accident) Problem details: September 2016 Status: Resolved Hospital Course Summary Disclaimer: The visit summary below is not to be considered part of the above Progress Note.
--- NOTE | 2017-09-16 12:04 | Progress Note ---
- Date 09/16/17 Subjective: Ramona is seen today in follow up. She is up in the chair working with speech therapy. She is doing good with swallowing however cannot head verbal cues due to her severe hearing loss. She does deny having pain or shortness of breath. Remains bradycardic in the 50's. Objective Vital signs: Temperature 97 F 09/16/17 07:48 Pulse Rate 52 L 09/16/17 08:00 Respiratory Rate 14 09/16/17 07:48 Blood Pressure 161/85 H 09/16/17 07:48 Pulse Oximetry 97 09/16/17 07:48 Height/Weight/BMI: Height 1.57 m Weight 54 kg Body Mass Index 21.3 Results - Labs CBC & Chem 7: 09/16/17 05:06 09/16/17 05:06 Assessment and Plan (1) ALDEN (acute kidney injury) Current visit: Yes Status: Acute (2) Lumbar compression fracture Current visit: Yes Status: Acute (3) Recurrent falls Current visit: Yes Status: Acute Assessment and Plan: Assessment Acute kidney injury-improved Dehydration-improved Lumbar compression fracture Recent falls Hypertension Hypothyroidism PAF Bradycardia Hyperlipidemia GERD Stage III CKD Plan Cardiology consultation by Dr Rogers. Will await for his recommendations. Remains bradycardia in the 50's. Will need to speak with Dr De Luna (pts motor setter) at time of Dc ECHO pending ALDEN improved. Administrative Judge is 1.3 which is close to baseline Continue to work with PT/OT and pain control of compression fx Miralax, Mom for bowel motivation Spoke with daughter Arlene regarding safe discharge plan. Encouraged her to speak with other siblings regarding returning home with HH for PT, or facility for ongoing SNU Case discussed with attending, Dr. Mojica DVT Prophylaxis: SCD's Resuscitation Status: Do Not Resuscitate - Time spent with patient Time with patient PN: 25 minutes - Physician Narrative Physician: Don Mojica MD Narrative: Date: 09/16/17 Time: 1849 Have independently interviewed and examined pt. Chart reviewed. Case discussed with my DIESEL CRANE OPERATOR. Care plan developed with my supervision; agree with above. Resting this afternoon-was sleeping when I came in to visit at about 1400, still sleeping now. Awakens readily. Dinner tray at bedside, but has not touched food. Lungs: decreased, no distress CV: regular, bradycardic. HR in 50s MSE: awake alert, not agitated. Plan: In discussion with Dr Rogers, he would like to continue to monitor HR. Possible pacemaker vs Link for monitoring. Encourage oral intake. Monitor lab. Will continue with IVF for now. Hospital Course Summary Disclaimer: The visit summary below is not to be considered part of the above Progress Note. Hospital Course: 09/12- admission Impression Acute kidney injury- creatinine today 2.3, baseline 1.3 Dehydration with Hyperkalemia and Hypernatremia Recent UTI (Has been on Bactrim 1 week) [id number] Atrial fibrillation Hypertension Carotid stenosis GERD Hypothyroidism Dyslipidemia Macular degeneration Plan Admit patient as outpatient observation under the care of Dr Kennedy for ALDEN, Dehydration Will obtain CBC and BMP on arrival for further medical workup. Initiate 1/2 NS at 100 ml/hr for hydration Will check UA given recent reported UTI. She has been on Bactrim for 1 week which has likely led to ALDEN and hyperkalemia. Monitor renal function closely. Monitor cardiac rhythm given bradycardia. Will stop Amiodarone, unfortunately the half life is approx 60 days. May need to discuss this with Dr De Luna prior to discharge. SCDs to bilateral lower ext for DVT ppx. She does wish to be a do not resuscitate and this order is written Will need to review other home medications once reconciled Will discuss further orders and plan of care with attending, Dr. Kennedy At time of discharge medical care will return to primary care provider, Dr Reyes 09/13 Patient complaining of back pain. Have ordered plain films and images show new acute compression fracture. Fracture is mild and new at L2 and there is progression at T 11. Ordering physical therapy for the patient Renal function continues to improve but above her baseline. She will need an extra day of hydration. Will repeat lab work in the morning. UA shows no sign of infection sequential compression devices are ordered family continues to be anxious 09/14 Continue IV fluids for hydration. Was started on Norvasc daily for HTN. PPI added for chronic GERD 09/15 1. dehydration -IVF, increase for now. -Encourage po intake 2. ALDEN (acute kidney injury) -due to dehydration from poor po intake -Probably near baseline but still appears dry, will increase IVF back to 100ml/ hr 3. Lumbar compression fracture -PT to work with her -may need kyphoplasty if pain uncontrollable 4. Recurrent falls -PT -She may need placement 5. HTN -On lisinopril at home which has been held here due to ALDEN and hypotension -BP are climbing. -No known EF. -Norvasc 5 mg daily and lisinopirl 5mg daily 6. Hypothyroid -Continue home replacements -TSH is high (10.3), FT4 pending. Will increase levothyroxine dose -I suspect she is hypothyroid and this could be contributing to the bradycardia 7. PAF -in SR at present. -She is bradycardic. Amio discontinued -I think she is likely going to need a ppm. We need to communicate with Dr. De Luna this coming week -No a candidate for OAC due to falls. -She is on ASA and Plavix at home, will continue 8. GERD -ppi 9. HLP -On zocor 20mg at home, resume 10. Recent UTI -Treated with bactrim -Current UA unremarkable 11. Hyperkalemia -Resolved with hydration 12. Hypernatremia -A bit elevated again today, will increase IVF back to 100mg/hr 13. CVA in 2017 -On ASA, plavix and statin 09/[address] Rogers. Will await for his recommendations. Remains bradycardia in the 50's. Will need to speak with Dr De Luna (pts motor setter) at time of Dc. ECHO pending. ALDEN improved. Administrative Judge is 1.3 which is close to baseline. Continue to work with PT/OT and pain control of compression fx. Miralax, Mom for bowel motivation. Spoke with daughter Arlene regarding safe discharge plan. Encouraged her to speak with other siblings regarding returning home with HH for PT, or facility for ongoing SNU.
[2017-09-16] MEDS: FUROSEMIDE 40 MG/4 ML INJECTION IVP SCH (18:21)
[2017-09-16] MEDS: SIMVASTATIN 20 MG TABLET PO SCH (20:49)
[2017-09-16] MEDS: MIRTAZAPINE 15 MG TABLET PO SCH (20:49)
[2017-09-16] MEDS: MELATONIN 5 MG TABLET PO SCH (20:49)
[2017-09-17] MEDS: FUROSEMIDE 40 MG/4 ML INJECTION IVP SCH ×2 (01:00→09:44)
[2017-09-17] MEDS: 1/2 NS 1,000 ML IV SCH ×3 (04:26→21:42)
[2017-09-17] MEDS ORDERED: SALINE FLUSH 10ml SYRINGE IV PRN (06:22)
[2017-09-17] MEDS: PANTOPRAZOLE 20 MG TABLET PO SCH (06:27)
[2017-09-17] MEDS: LEVOTHYROXINE 50 MCG TABLET PO SCH (06:27)
[2017-09-17] MEDS ORDERED: AMLODIPINE 10 MG TABLET PO SCH (07:40)
[2017-09-17] MEDS: ASPIRIN 81 MG CHEWABLE TABLET PO SCH (09:26)
[2017-09-17] MEDS ORDERED: FUROSEMIDE 40 MG/4 ML INJECTION IVP SCH (09:26)
[2017-09-17] MEDS: TRAMADOL 50 MG TABLET PO PRN ×2 (09:26→21:40)
[2017-09-17] MEDS: LISINOPRIL 5 MG TABLET PO SCH (09:26)
[2017-09-17] MEDS: DOCUSATE SODIUM 100 MG CAPSULE PO SCH (09:26)
[2017-09-17] MEDS: POLYETHYL GLYCOL 3350 17gm PACKET PO SCH ×2 (09:27)
[2017-09-17] MEDS: CLOPIDOGREL 75 MG TABLET PO SCH (09:27)
[2017-09-17] MEDS: LUTEIN 20 MG CAPSULE PO SCH (09:27)
--- NOTE | 2017-09-17 09:30 | XRay Report ---
Indication: bradycardia PROCEDURE: XR chest 1V: Encounter: Initial Comparison: July 25, 2017 Findings: New airspace disease in the left lower lobe with a small left effusion. Right lung appears clear. No pneumothorax. Cardiac silhouette remains moderately enlarged. Mediastinal contours are stable. Pulmonary vascularity appears normal. Impression: New left effusion and basilar airspace disease. .
--- NOTE | 2017-09-17 09:44 | Cardiology Progress Note ---
<Deepali Coombs M - Last Filed: 09/17/17 14:13> Subjective Principal diagnosis: bradycardia Interval history: Ramona is seen in follow up for bradycardia. Rate this morning in the 60s while she sleeps in bed. She denies cardiac complaints. Exam Vital signs: Temperature 96.1 F L 09/17/17 07:35 Pulse Rate 65 09/17/17 07:35 Respiratory Rate 14 09/17/17 07:35 Blood Pressure 149/85 H 09/17/17 07:35 Pulse Oximetry 98 09/17/17 07:35 Inpatient Medications: Generic Name Dose Route Start Last Admin Trade Name Freq PRN Reason Stop Dose Admin Acetaminophen 650 mg 09/13/17 16:38 Tylenol PO Q6H PRN Pain Acetaminophen 650 mg 09/14/17 21:00 09/17/17 09:27 Tylenol Arthritis PO 650 mg BID YING Administration Amlodipine Besylate 10 mg 09/17/17 07:40 09/17/17 09:37 Norvasc PO 10 mg DAILY YING Administration Aspirin 81 mg 09/14/17 13:45 09/17/17 09:26 Asa PO 81 mg DAILY YING Administration Atropine Sulfate 0.5 mg 09/15/17 12:40 Atropine IVP AD PRN bradycardia, HR < 40 Clopidogrel Bisulfate 75 mg 09/14/17 13:45 09/17/17 09:27 Plavix PO 75 mg DAILY YING Administration Docusate Sodium 100 mg 09/15/17 09:00 09/17/17 09:26 Colace PO 100 mg DAILY YING Administration Furosemide 40 mg 09/17/17 09:26 09/17/17 09:37 Lasix IVP 40 mg DAILY YING Administration Sodium Chloride 1,000 mls @ 100 mls/hr 09/14/17 13:45 09/17/17 05:14 1/2 Normal Saline IV 50 mls/hr .Q10H YING Administration Levothyroxine Sodium 50 mcg 09/16/17 06:30 09/17/17 06:27 Synthroid PO 50 mcg ACB YING Administration Lisinopril 5 mg 09/15/17 09:00 09/17/17 09:26 Prinivil PO 5 mg DAILY YING Administration Lutein 20 mg 09/15/17 09:00 09/17/17 09:27 PO 20 mg DAILY YING Administration Magnesium Hydroxide 30 ml 09/17/17 09:00 Mom PO DAILY PRN Constipation Melatonin 5 mg 09/14/17 21:00 09/16/17 20:49 Melatonin PO 5 mg HS YING Administration Mirtazapine 15 mg 09/14/17 21:00 09/16/17 20:49 Remeron PO 15 mg HS YING Administration Pantoprazole Sodium 20 mg 09/15/17 06:30 09/17/17 06:27 Protonix PO 20 mg ACB YING Administration Polyethylene Glycol 17 gm 09/15/17 09:00 09/17/17 09:27 Miralax PO 17 gm DAILY YING Administration Polyethylene Glycol 17 gm 09/16/17 12:15 09/17/17 09:27 Miralax PO Not Given DAILY YING Simvastatin 20 mg 09/14/17 21:00 09/16/17 20:49 Zocor PO 20 mg HS YING Administration Sodium Chloride 10 ml 09/17/17 06:22 09/17/17 06:31 Iv Flush IV 10 ml PRN PRN Administration Flushing Tramadol HCl 50 - 100 mg 09/13/17 16:44 09/17/17 09:26 Ultram PO 50 mg Q6H PRN Administration Discontinued Medications Generic Name Dose Route Start Last Admin Trade Name Freq PRN Reason Stop Dose Admin Acetaminophen 650 mg 09/13/17 10:08 09/13/17 10:14 Tylenol PO 650 mg O PRN Administration Pain Amlodipine Besylate 5 mg 09/14/17 13:45 09/14/17 14:20 Norvasc PO 5 mg DAILY YING Administration Amlodipine Besylate 10 mg 09/15/17 06:58 09/15/17 10:26 Norvasc PO 10 mg DAILY YING Administration Amlodipine Besylate 5 mg 09/16/17 09:00 09/16/17 08:34 Norvasc PO 5 mg DAILY YING Administration Atropine Sulfate 0.4 mg 09/15/17 12:07 Atropine IVP PRN PRN bradycardia, HR < 40 Atropine Sulfate 0.5 mg 09/15/17 12:13 09/15/17 12:38 Atropine IVP 09/15/17 12:14 0.5 mg O ONE Administration Furosemide 40 mg 09/16/17 18:15 09/17/17 01:00 Lasix IVP 40 mg Q8HR YING Administration Sodium Chloride 1,000 mls @ 100 mls/hr 09/12/17 19:15 09/15/17 00:50 1/2 Normal Saline IV Not Given .Q10H COUNTS INCLUDE 234 BEDS AT THE [facility] Levothyroxine Sodium 25 mcg 09/15/17 06:30 09/15/17 06:24 Synthroid PO 25 mcg ACB YING Administration Magnesium Hydroxide 30 ml 09/16/17 12:12 09/16/17 13:00 Mom PO 09/16/17 12:13 30 ml O ONE Administration Pharmacy Consult 1 each 09/15/17 22:58 Pharmacy Consult - Fall Risk XX 09/15/17 22:59 ONE TIME ONE Tramadol HCl 100 mg 09/13/17 16:39 Ultram PO Q6H PRN - Constitutional no acute distress, thin, cooperative - Routine HEENT Exam Head: Present: normocephalic ENT: Present: mucous membranes moist - Routine Neck Exam Absent: JVD, carotid bruit - Routine Chest/Breast/Axilla Exam Chest wall: Absent: tenderness, pacemaker - Routine Respiratory Exam Present: CTA bilaterally. Absent: rales, wheezes - Routine Cardiovascular Exam Present: no murmur, bradycardia - Routine Abdominal Exam Present: soft, normoactive bowel sounds - Routine Extremities Exam Present: no edema - Routine Skin Exam Present: intact, dry, warm - Routine Neurological Exam Present: alert - Routine Psychiatric Exam Present: normal affect, normal thought process - Additional findings Additional findings: Acetaminophen (Tylenol) 650 mg PO Q6H PRN PRN Reason: Pain Acetaminophen (Tylenol Arthritis) 650 mg PO BID COUNTS INCLUDE 234 BEDS AT THE [facility] Last Admin: 09/17/17 09:27 Dose: 650 mg Amlodipine Besylate (Norvasc) 10 mg PO DAILY COUNTS INCLUDE 234 BEDS AT THE [facility] Last Admin: 09/17/17 09:37 Dose: 10 mg Aspirin (Asa) 81 mg PO DAILY COUNTS INCLUDE 234 BEDS AT THE [facility] Last Admin: 09/17/17 09:26 Dose: 81 mg Atropine Sulfate (Atropine) 0.5 mg IVP AD PRN PRN Reason: bradycardia, HR < 40 Clopidogrel Bisulfate (Plavix) 75 mg PO DAILY COUNTS INCLUDE 234 BEDS AT THE [facility] Last Admin: 09/17/17 09:27 Dose: 75 mg Docusate Sodium (Colace) 100 mg PO DAILY COUNTS INCLUDE 234 BEDS AT THE [facility] Last Admin: 09/17/17 09:26 Dose: 100 mg Furosemide (Lasix) 40 mg IVP DAILY COUNTS INCLUDE 234 BEDS AT THE [facility] Last Admin: 09/17/17 09:37 Dose: 40 mg Sodium Chloride (1/2 Normal Saline) 1,000 mls @ 100 mls/hr IV .Q10H COUNTS INCLUDE 234 BEDS AT THE [facility] Last Admin: 09/17/17 05:14 Dose: 50 mls/hr Levothyroxine Sodium (Synthroid) 50 mcg PO ACB COUNTS INCLUDE 234 BEDS AT THE [facility] Last Admin: 09/17/17 06:27 Dose: 50 mcg Lisinopril (Prinivil) 5 mg PO DAILY COUNTS INCLUDE 234 BEDS AT THE [facility] Last Admin: 09/17/17 09:26 Dose: 5 mg Lutein () 20 mg PO DAILY COUNTS INCLUDE 234 BEDS AT THE [facility] Last Admin: 09/17/17 09:27 Dose: 20 mg Magnesium Hydroxide (Mom) 30 ml PO DAILY PRN PRN Reason: Constipation Melatonin (Melatonin) 5 mg PO HS COUNTS INCLUDE 234 BEDS AT THE [facility] Last Admin: 09/16/17 20:49 Dose: 5 mg Mirtazapine (Remeron) 15 mg PO HS COUNTS INCLUDE 234 BEDS AT THE [facility] Last Admin: 09/16/17 20:49 Dose: 15 mg Pantoprazole Sodium (Protonix) 20 mg PO ACB COUNTS INCLUDE 234 BEDS AT THE [facility] Last Admin: 09/17/17 06:27 Dose: 20 mg Polyethylene Glycol (Miralax) 17 gm PO DAILY COUNTS INCLUDE 234 BEDS AT THE [facility] Last Admin: 09/17/17 09:27 Dose: 17 gm Polyethylene Glycol (Miralax) 17 gm PO DAILY COUNTS INCLUDE 234 BEDS AT THE [facility] Last Admin: 09/17/17 09:27 Dose: Not Given Simvastatin (Zocor) 20 mg PO HS COUNTS INCLUDE 234 BEDS AT THE [facility] Last Admin: 09/16/17 20:49 Dose: 20 mg Sodium Chloride (Iv Flush) 10 ml IV PRN PRN PRN Reason: Flushing Last Admin: 09/17/17 06:31 Dose: 10 ml Tramadol HCl (Ultram) 50 - 100 mg PO Q6H PRN Last Admin: 09/17/17 09:26 Dose: 50 mg Results 09/17/17 03:55 09/17/17 03:55 Cardiac Enzymes 09/17/17 Range/Units 03:55 AST 26 (14-36) U/L CBC 09/17/17 Range/Units 03:55 WBC 3.8 L (4.5-11.0) T/MM3 RBC 3.81 L (4.00-5.20) M/MM3 Hgb 11.8 L (12-16) GM/DL Hct 36.8 (36-46) % Plt Count 238 (130-400) T/MM3 Neut # (Auto) 2.8 (1.8-7.7) T/MM3 Lymph # (Auto) 0.5 L (1-4.8) T/MM3 Dillon # (Auto) 0.4 (0-0.8) T/MM3 Eos # (Auto) 0.1 (0-0.5) T/MM3 Baso # (Auto) 0.0 (0-0.2) T/MM3 Comprehensive Metabolic Panel 09/17/17 Range/Units 03:55 Sodium 143 (134-144) MEQ/L Potassium 4.1 (3.6-5) MEQ/L Chloride 108 H (98-107) MEQ/L Carbon Dioxide 24 (22-30) MEQ/L BUN 22.0 H (7-17) MG/DL Creatinine 1.4 H D (0.7-1.2) mg/dL Glucose 95 (65-110) MG/DL Calcium 9.3 (8.4-10.2) MG/DL AST 26 (14-36) U/L ALT 30 (9-52) U/L Alkaline Phosphatase 124 (38-126) U/L Total Protein 7.5 (6.3-8.2) g/dL Albumin 4.0 (3.5-5.0) g/dL Intake and Output 09/16/17 09/17/17 09/17/17 22:59 06:59 14:59 Intake Total 100 / 100 1000 / 1000 Output Total 1700 / 1700 800 / 800 Balance -1600 / -1600 200 / 200 Intake: IV 1000 / 1000 1/2 Ns 1,000 ml @ 100 mls/hr IV 1000 / 1000 .Q10H COUNTS INCLUDE 234 BEDS AT THE [facility] Rx#:[id number] Oral 100 / 100 0 / 0 Output: Urine 1700 / 1700 800 / 800 Other: Urine Appearance Clear Clear Urine Color Yellow Straw # Incontinent Voids 1 Assessment and Plan - Assessment and Plan (1) Sinus bradycardia Status: Acute (2) ALDEN (acute kidney injury) Status: Acute (3) Lumbar compression fracture Status: Acute (4) Recurrent falls Status: Acute (5) Essential (primary) hypertension Status: Chronic (6) Mixed hyperlipidemia Status: Chronic (7) Carotid arterial disease Status: Chronic (8) History of CVA (cerebrovascular accident) Problem details: September 2016 Status: Resolved - Assessment and Plan 09/16/17 Sinus Bradycardia: denies syncope - 2 recent falls with injuries - May need Linq implant to monitor HR at home - Amiodarone stopped ALDEN: Scr 1.3 today, down from 2.1 HTN: Suboptimal control - Increase Amlodipine to 10mg - Lasix 40mg IV Q8H - Continue Lisinopril HLD: Continue Simvastatin Hx CVA: Continue Aspirin & Plavix Thank you for allowing us to participate in the care of this patient. 09/17/17 - No clear indication of need for PPM - Continue to monitor - Linq device would be helpful to record episodes of bradycardia, this could be done outpatient. Hospital Course Summary Disclaimer: The visit summary below is not to be considered part of the above Progress Note. Hospital Course: 09/12- admission Impression Acute kidney injury- creatinine today 2.3, baseline 1.3 Dehydration with Hyperkalemia and Hypernatremia Recent UTI (Has been on Bactrim 1 week) [id number] Atrial fibrillation Hypertension Carotid stenosis GERD Hypothyroidism Dyslipidemia Macular degeneration Plan Admit patient as outpatient observation under the care of Dr Kennedy for ALDEN, Dehydration Will obtain CBC and BMP on arrival for further medical workup. Initiate 1/2 NS at 100 ml/hr for hydration Will check UA given recent reported UTI. She has been on Bactrim for 1 week which has likely led to ALDEN and hyperkalemia. Monitor renal function closely. Monitor cardiac rhythm given bradycardia. Will stop Amiodarone, unfortunately the half life is approx 60 days. May need to discuss this with Dr De Luna prior to discharge. SCDs to bilateral lower ext for DVT ppx. She does wish to be a do not resuscitate and this order is written Will need to review other home medications once reconciled Will discuss further orders and plan of care with attending, Dr. Kennedy At time of discharge medical care will return to primary care provider, Dr Reyes 09/13 Patient complaining of back pain. Have ordered plain films and images show new acute compression fracture. Fracture is mild and new at L2 and there is progression at T 11. Ordering physical therapy for the patient Renal function continues to improve but above her baseline. She will need an extra day of hydration. Will repeat lab work in the morning. UA shows no sign of infection sequential compression devices are ordered family continues to be anxious 09/14 Continue IV fluids for hydration. Was started on Norvasc daily for HTN. PPI added for chronic GERD 09/15 1. dehydration -IVF, increase for now. -Encourage po intake 2. ALDEN (acute kidney injury) -due to dehydration from poor po intake -Probably near baseline but still appears dry, will increase IVF back to 100ml/ hr 3. Lumbar compression fracture -PT to work with her -may need kyphoplasty if pain uncontrollable 4. Recurrent falls -PT -She may need placement 5. HTN -On lisinopril at home which has been held here due to ALDEN and hypotension -BP are climbing. -No known EF. -Norvasc 5 mg daily and lisinopirl 5mg daily 6. Hypothyroid -Continue home replacements -TSH is high (10.3), FT4 pending. Will increase levothyroxine dose -I suspect she is hypothyroid and this could be contributing to the bradycardia 7. PAF -in SR at present. -She is bradycardic. Amio discontinued -I think she is likely going to need a ppm. We need to communicate with Dr. De Luna this coming week -No a candidate for OAC due to falls. -She is on ASA and Plavix at home, will continue 8. GERD -ppi 9. HLP -On zocor 20mg at home, resume 10. Recent UTI -Treated with bactrim -Current UA unremarkable 11. Hyperkalemia -Resolved with hydration 12. Hypernatremia -A bit elevated again today, will increase IVF back to 100mg/hr 13. CVA in 2017 -On ASA, plavix and statin 09/[address] Rogers. Will await for his recommendations. Remains bradycardia in the 50's. Will need to speak with Dr De Luna (pts forestry aid technician) at time of Dc. ECHO pending. ALDEN improved. Sheather is 1.3 which is close to baseline. Continue to work with PT/OT and pain control of compression fx. Miralax, Mom for bowel motivation. Spoke with daughter Arlene regarding safe discharge plan. Encouraged her to speak with other siblings regarding returning home with HH for PT, or facility for ongoing SNU. <Angelo Rogers - Last Filed: 09/25/17 12:35> Exam Vital signs: Temperature 96.5 F L 09/18/17 08:45 Pulse Rate 45 L 09/18/17 08:45 Respiratory Rate 12 09/18/17 08:45 Blood Pressure 126/66 09/18/17 08:45 Pulse Oximetry 95 09/18/17 08:45 Inpatient Medications: Discontinued Medications Generic Name Dose Route Start Last Admin Trade Name Freq PRN Reason Stop Dose Admin Acetaminophen 650 mg 09/13/17 10:08 09/13/17 10:14 Tylenol PO 650 mg O PRN Administration Pain Acetaminophen 650 mg 09/13/17 16:38 Tylenol PO Q6H PRN Pain Acetaminophen 650 mg 09/14/17 21:00 09/18/17 10:07 Tylenol Arthritis PO 650 mg BID YING Administration Amlodipine Besylate 5 mg 09/14/17 13:45 09/14/17 14:20 Norvasc PO 5 mg DAILY YING Administration Amlodipine Besylate 10 mg 09/15/17 06:58 09/15/17 10:26 Norvasc PO 10 mg DAILY YING Administration Amlodipine Besylate 5 mg 09/16/17 09:00 09/16/17 08:34 Norvasc PO 5 mg DAILY YING Administration Amlodipine Besylate 10 mg 09/17/17 07:40 09/17/17 09:37 Norvasc PO 10 mg DAILY YING Administration Amlodipine Besylate 5 mg 09/18/17 09:00 09/18/17 10:08 Norvasc PO 5 mg DAILY YING Administration Aspirin 81 mg 09/14/17 13:45 09/18/17 10:08 Asa PO 81 mg DAILY YING Administration Atropine Sulfate 0.4 mg 09/15/17 12:07 Atropine IVP PRN PRN bradycardia, HR < 40 Atropine Sulfate 0.5 mg 09/15/17 12:13 09/15/17 12:38 Atropine IVP 09/15/17 12:14 0.5 mg O ONE Administration Atropine Sulfate 0.5 mg 09/15/17 12:40 Atropine IVP AD PRN bradycardia, HR < 40 Clopidogrel Bisulfate 75 mg 09/14/17 13:45 09/18/17 10:08 Plavix PO 75 mg DAILY YING Administration Docusate Sodium 100 mg 09/15/17 09:00 09/18/17 10:09 Colace PO 100 mg DAILY YING Administration Furosemide 40 mg 09/16/17 18:15 09/17/17 09:44 Lasix IVP Not Given Q8HR YING Furosemide 40 mg 09/17/17 09:26 09/17/17 09:37 Lasix IVP 40 mg DAILY YING Administration Sodium Chloride 1,000 mls @ 100 mls/hr 09/12/17 19:15 09/15/17 00:50 1/2 Normal Saline IV Not Given .Q10H YING Sodium Chloride 1,000 mls @ 75 mls/hr 09/14/17 13:45 09/17/17 21:42 1/2 Normal Saline IV Infused .[id number] YING Infusion Sodium Chloride 1,000 mls @ 50 mls/hr 09/17/17 18:45 09/18/17 17:11 1/2 Normal Saline IV Not Given .Q20H YING Levothyroxine Sodium 25 mcg 09/15/17 06:30 09/15/17 06:24 Synthroid PO 25 mcg ACB YING Administration Levothyroxine Sodium 50 mcg 09/16/17 06:30 09/18/17 06:29 Synthroid PO 50 mcg ACB YING Administration Lisinopril 5 mg 09/15/17 09:00 09/17/17 09:26 Prinivil PO 5 mg DAILY YING Administration Lutein 20 mg 09/15/17 09:00 09/18/17 10:08 PO 20 mg DAILY YING Administration Magnesium Hydroxide 30 ml 09/17/17 09:00 Mom PO DAILY PRN Constipation Magnesium Hydroxide 30 ml 09/16/17 12:12 09/16/17 13:00 Mom PO 09/16/17 12:13 30 ml O ONE Administration Melatonin 5 mg 09/14/17 21:00 09/17/17 20:18 Melatonin PO 5 mg HS YING Administration Mirtazapine 15 mg 09/14/17 21:00 09/17/17 20:18 Remeron PO 15 mg HS YING Administration Pantoprazole Sodium 20 mg 09/15/17 06:30 09/18/17 06:29 Protonix PO 20 mg ACB YING Administration Pharmacy Consult 1 each 09/15/17 22:58 Pharmacy Consult - Fall Risk XX 09/15/17 22:59 ONE TIME ONE Polyethylene Glycol 17 gm 09/15/17 09:00 09/18/17 10:09 Miralax PO 17 gm DAILY YING Administration Polyethylene Glycol 17 gm 09/16/17 12:15 09/17/17 09:27 Miralax PO Not Given DAILY YING Simvastatin 20 mg 09/14/17 21:00 09/17/17 20:18 Zocor PO 20 mg HS YING Administration Sodium Chloride 10 ml 09/17/17 06:22 09/17/17 06:31 Iv Flush IV 10 ml PRN PRN Administration Flushing Tramadol HCl 100 mg 09/13/17 16:39 Ultram PO Q6H PRN Tramadol HCl 50 - 100 mg 09/13/17 16:44 09/17/17 21:40 Ultram PO 50 mg Q6H PRN Administration Trazodone HCl 50 mg 09/17/17 21:00 09/17/17 20:19 Desyrel PO 50 mg HS YING Administration Results 09/18/17 05:00 09/18/17 05:00 Assessment and Plan - Assessment and Plan (1) ALDEN (acute kidney injury) Status: Acute (2) Lumbar compression fracture Status: Acute (3) Recurrent falls Status: Acute (4) Sinus bradycardia Status: Acute (5) Essential (primary) hypertension Status: Chronic (6) Mixed hyperlipidemia Status: Chronic (7) Carotid arterial disease Status: Chronic (8) History of CVA (cerebrovascular accident) Problem details: September 2016 Status: Resolved - Attestation Attestation Narrative: 09/25/17 12:35 Recommendation After examining the patient I agree with the above assessment. I am involved in the formulation of the patient's plan of care. Hospital Course Summary Disclaimer: The visit summary below is not to be considered part of the above Progress Note.
--- NOTE | 2017-09-17 10:39 | Echocardiogram ---
DATE OF PROCEDURE September 16, [address] Jackson Kennedy This is a two-dimensional echo with spectral Doppler, color-flow and M-mode. It was obtained in a patient with bradycardia and falls and presyncope. Left atrium is dilated. Left ventricular end-diastolic dimension is normal. Left ventricle wall thickness increased. LV systolic function is normal with ejection fraction of 65%. Right atrium is dilated. Right ventricle is normal. Aortic root dimension is normal. Mitral valve is morphologically normal with mild mitral regurgitation. Aortic valve shows mild aortic insufficiency with no stenosis. Tricuspid valve shows severe tricuspid regurgitation with moderate -to-severe pulmonary hypertension with estimated pulmonary artery systolic pressure of 62. Pulmonary valve shows [id number] pulmonary insufficiency. There is no pericardial effusion. IMPRESSION 1. Normal LV systolic function with ejection fraction of 65%. 2. Biatrial dilation. 3. Left ventricular hypertrophy. 4. Pleural effusion present. 5. Mild mitral regurgitation. 6. Mild aortic insufficiency. 7. Severe tricuspid regurgitation with [id number] pulmonary hypertension with estimated pulmonary artery systolic pressure of 62. 8. [id number] pulmonary insufficiency. MTDD
--- NOTE | 2017-09-17 11:05 | Progress Note ---
- Date 09/17/17 Subjective: F/U: Bradycardia, ALDEN, generalized weakness. Ramona is seen while sitting up in her chair. She complains of generalized lower back "aching" which she reports has been present for the past few weeks. She denies any other complaints. No chest pain, shortness of breath, abdominal pain, nausea, vomiting or dysuria. Nursing reports that her appetite and oral intake is poor. No bowel movement since admission. Dr. Rogers is not recommending a pacemaker at this time but feels a Linq device would be beneficial to record bradycardia and could be placed as an outpatient . Echocardiogram on 09/16 revealed normal LV systolic function with EF 65%, LVH, biatrial dilation, pleural effusion and severe tricuspid regurgitation with moderate-severe pulmonary hypertension (pressure 62). Weight is down 7# since yesterday. Renal function stable at SCr 1.4. Objective Vital signs: Temperature 96.1 F L 09/17/17 07:35 Pulse Rate 65 09/17/17 07:35 Respiratory Rate 14 09/17/17 07:35 Blood Pressure 149/85 H 09/17/17 07:35 Pulse Oximetry 98 09/17/17 07:35 Rhythm: Normal Sinus Rhythm (rate 60 on telemetry at time of exam) Height/Weight/BMI: Height 5 ft 2 in Weight 112 lb 6.972 oz Body Mass Index 21.3 Comments: Patient seen while sitting in recliner. Requests to get back in bed at the conclusion of the exam. - Constitutional Present: no acute distress, well nourished, well developed, thin, cooperative - Routine HEENT Exam Head: Present: normocephalic, atraumatic Eye: Present: PERRL. Absent: conjunctival icterus ENT: Present: mucous membranes moist - Routine Respiratory Exam Present: CTA bilaterally. Absent: rales, respiratory distress, rhonchi, stridor , wheezes, crackles Comments: Limited exam due to poor inspiratory effort. No cough or conversational dyspnea. Breathing easily on room air. - Routine Cardiovascular Exam Present: RRR, S1, S2 - Routine Abdominal Exam Present: soft, normoactive bowel sounds, non distended, non tender - Routine Extremities Exam Present: no edema, non tender, pulses intact - Routine Back/Spine/Pelvis Exam Back/Spine: Present: full ROM, kyphosis. Absent: CVA tenderness, vertebral tenderness - Routine Musculoskeletal Exam Musculoskeletal: Present: moving extremities well - Routine Skin Exam Present: dry, warm. Absent: jaundice Comments: afebrile. - Routine Neurological Exam Present: alert, moving all extremities, hearing grossly intact, normal speech - Routine Lymphatic Exam Lymphatic: Absent: lymphedema - Routine Psychiatric Exam Present: cooperative Results - Labs CBC & Chem 7: 09/17/17 03:55 09/17/17 03:55 - Echocardiogram History of Echocardiogram: Date of Exam: 09/16/17. Type of Exam(s): US echo doppler complete. This is a two-dimensional echo with spectral Doppler, color- flow and M-mode. It was obtained in a patient with bradycardia and falls and presyncope. Left atrium is dilated. Left ventricular end-diastolic dimension is normal. Left ventricle wall thickness increased. LV systolic function is normal with ejection fraction of 65%. Right atrium is dilated. Right ventricle is normal. Aortic root dimension is normal. Mitral valve is morphologically normal with mild mitral regurgitation. Aortic valve shows mild aortic insufficiency with no stenosis. Tricuspid valve shows severe tricuspid regurgitation with [id number] pulmonary hypertension with estimated pulmonary artery systolic pressure of 62. Pulmonary valve shows mild-to- moderate pulmonary insufficiency. There is no pericardial effusion. IMPRESSION. 1. Normal LV systolic function with ejection fraction of 65%. 2. Biatrial dilation. 3. Left ventricular hypertrophy. 4. Pleural effusion present. 5. Mild mitral regurgitation. 6. Mild aortic insufficiency. 7. Severe tricuspid regurgitation with [id number] pulmonary hypertension with estimated pulmonary artery systolic pressure of 62. 8. Flxe-hx-khtvhnkg pulmonary insufficiency. Assessment and Plan (1) ALDEN (acute kidney injury) Current visit: Yes Status: Acute (2) Lumbar compression fracture Current visit: Yes Status: Acute (3) Recurrent falls Current visit: Yes Status: Acute Assessment and Plan: Assessment Acute kidney injury-improved Dehydration-improved Lumbar compression fracture Recent falls Hypertension Hypothyroidism - elevated TSH, Synthroid dose increased PAF Bradycardia, present on admission - improving Hyperlipidemia GERD Stage III CKD Bilateral heel ulcerations (POA) Leukopenia (POA) - stable Anemia (POA) improving Severe tricuspid regurgitation with mod-severe pulmonary hypertension (pressure 62) - 09/16/17 - NEW DIAGNOSIS. Plan - 09/17/17 Dr. Rogers is not recommending pacemaker at this time, though feels a Linq device would be beneficial to monitor bradycardia. Could be placed as outpatient. Will need to speak with Dr De Luna (pts flight operations manager) at time of DC. Plan to continue to monitor. Current telemetry with heart rate 60. Continue to monitor closely on telemetry. Echo 09/16/17: normal systolic LV function, EF 65%, LVH, biatrial dilation, pleural effusion and severe tricuspid regurg with mod-severe pulmonary hypertension (pressure 62). Oral intake remains poor. Continue 1/2NS at 75cc/hr for gentle hydration. Monitor urinary output and daily weight. Slight increase in SCr to 1.4. Will continue to monitor closely. Continue to encourage participation in therapies for strengthening and improvement in functional abilities. No BM since admission. Continue bowel motivation. Bilateral heal ulcerations examined - stage 3 ulceration left heel; unstageable ulceration to right heel. Continue care per wound care team. [place] boots and off load pressure to heels as able. Recheck labs in AM to monitor blood counts, electrolytes and renal function. Case discussed with attending, Dr. Mojica. Yunior Will decrease 1/2NS to 50 cc/hr and stop IV Lasix. Decrease Norvasc to 5mg daily to decrease likelihood for low BP. In discussion with patient's daughter, it seems pt having difficulty sleeping at night. They had asked Dr Reyes about Trazodone at clinic visit, but directly admitted. Would be reasonable to try- will start 50mg nightly. Did also discuss about possible Hospice care if patient not making rally with still care-family is contemplating that. DVT Prophylaxis: SCD's GI Prophylaxis: Protonix Resuscitation Status: Do Not Resuscitate - Time spent with patient Time with patient PN: 35 minutes - Physician Narrative Physician: Don Mojica MD Narrative: Date: 09/17/17 Time: 1739 Have independently interviewed and examined pt. Chart reviewed. Case discussed with CM, pt's daughter, and my PA. Care plan developed with my supervision; agree with above. Resting in chair this evening. Readily awakens to verbal stimuli. Did work with therapy today-walked in halls. Therapy reports she did better today-able to go further and had less pain. Oral drive still decreased. Denies ab pain or nausea. Breathing okay. BP did decrease this afternoon-Norvasc increased to 10mg this am. Daughter reports family against pacemaker. Discussed about IRU for care, but they worry it may be too intensive for her to tolerate. Leaning towards [facility] for care-reports that patient seemed to eat better there ( she liked the food bowel-was colorful and made mechanism of eating easier). Lungs: decreased, no distress CV: bradycardic MSE: awake alert Plan: Will decrease 1/2NS to 50 cc/hr and stop IV Lasix. Decrease Norvasc to 5mg daily to decrease likelihood for low BP. In discussion with patient's daughter, it seems pt having difficulty sleeping at night. They had asked Dr Reyes about Trazodone at clinic visit, but directly admitted. Would be reasonable to try-will start 50mg nightly. Did also discuss about possible Hospice care if patient not making rally with still care-family is contemplating that. Hospital Course Summary Disclaimer: The visit summary below is not to be considered part of the above Progress Note. Hospital Course: 09/12- admission Impression Acute kidney injury- creatinine today 2.3, baseline 1.3 Dehydration with Hyperkalemia and Hypernatremia Recent UTI (Has been on Bactrim 1 week) [id number] Atrial fibrillation Hypertension Carotid stenosis GERD Hypothyroidism Dyslipidemia Macular degeneration Plan Admit patient as outpatient observation under the care of Dr Kennedy for ALDEN, Dehydration Will obtain CBC and BMP on arrival for further medical workup. Initiate 1/2 NS at 100 ml/hr for hydration Will check UA given recent reported UTI. She has been on Bactrim for 1 week which has likely led to ALDEN and hyperkalemia. Monitor renal function closely. Monitor cardiac rhythm given bradycardia. Will stop Amiodarone, unfortunately the half life is approx 60 days. May need to discuss this with Dr De Luna prior to discharge. SCDs to bilateral lower ext for DVT ppx. She does wish to be a do not resuscitate and this order is written Will need to review other home medications once reconciled Will discuss further orders and plan of care with attending, Dr. Kennedy At time of discharge medical care will return to primary care provider, Dr Reyes 09/13 Patient complaining of back pain. Have ordered plain films and images show new acute compression fracture. Fracture is mild and new at L2 and there is progression at T 11. Ordering physical therapy for the patient Renal function continues to improve but above her baseline. She will need an extra day of hydration. Will repeat lab work in the morning. UA shows no sign of infection sequential compression devices are ordered family continues to be anxious 09/14 Continue IV fluids for hydration. Was started on Norvasc daily for HTN. PPI added for chronic GERD 09/15 1. dehydration -IVF, increase for now. -Encourage po intake 2. ALDEN (acute kidney injury) -due to dehydration from poor po intake -Probably near baseline but still appears dry, will increase IVF back to 100ml/ hr 3. Lumbar compression fracture -PT to work with her -may need kyphoplasty if pain uncontrollable 4. Recurrent falls -PT -She may need placement 5. HTN -On lisinopril at home which has been held here due to ALDEN and hypotension -BP are climbing. -No known EF. -Norvasc 5 mg daily and lisinopril 5mg daily 6. Hypothyroid -Continue home replacements -TSH is high (10.3), FT4 pending. Will increase levothyroxine dose -I suspect she is hypothyroid and this could be contributing to the bradycardia 7. PAF -in SR at present. -She is bradycardic. Amiodarone discontinued -I think she is likely going to need a ppm. We need to communicate with Dr. De Luna this coming week -No a candidate for OAC due to falls. -She is on ASA and Plavix at home, will continue 8. GERD -ppi 9. HLP -On Zocor 20mg at home, resume 10. Recent UTI -Treated with Bactrim -Current UA unremarkable 11. Hyperkalemia -Resolved with hydration 12. Hypernatremia -A bit elevated again today, will increase IVF back to 100mg/hr 13. CVA in 2017 -On ASA, Plavix and statin 09/[address] Rogers. Will await for his recommendations. Remains bradycardia in the 50's. Will need to speak with Dr De Luna (pts flight operations manager) at time of Dc. ECHO pending. ALDEN improved. Creatinine is 1.3 which is close to baseline. Continue to work with PT/OT and pain control of compression fx. Miralax, Mom for bowel motivation. Spoke with daughter Arlene regarding safe discharge plan. Encouraged her to speak with other siblings regarding returning home with HH for PT, or facility for ongoing SNU. 09/17 Dr. Rogers is not recommending pacemaker at this time, though feels a Linq device would be beneficial to monitor bradycardia. Could be placed as outpatient. Will need to speak with Dr De Luna (pt's flight operations manager) at time of DC. Plan to continue to monitor. Current telemetry with heart rate 60. Continue to monitor closely on telemetry. Echo 09/16/17: normal systolic LV function, EF 65%, LVH, biatrial dilation, pleural effusion and severe tricuspid regurgitation with mod-severe pulmonary hypertension (pressure 62). Oral intake remains poor. Decrease 1/2NS to 50cc/hr for gentle hydration; will stop IV Lasix. Monitor urinary output and daily weight. Slight increase in creatinine to 1.4. Continue to monitor . Continue to encourage participation in therapies for strengthening and improvement in functional abilities. IRU screen placed. Family with concern that IRU may be too intensive for patient. CM looking into [facility] for skilled care. With patient's declining oral drive and functional status, did discuss about possible hospice care. Family considering this. No BM since admission. Continue bowel motivation. Sleep has been problematic. Family discussed with Dr Reyes about Trazodone at clinic visit, but directly admitted. Would be reasonable to Trazodone 50mg nightly to help sleep/mood. Bilateral heal ulcerations examined - stage 3 ulceration left heel; unstageable ulceration to right heel. Continue care per wound care team. Ed boots and off load pressure to heels as able. Norvasc increased to 10mg this morning as BP has been running high. Afternoon BP decrease to 80s. Will decrease Norvasc to 5mg daily. Recheck labs in AM to monitor blood counts, electrolytes and renal function.
[2017-09-17] MEDS: MIRTAZAPINE 15 MG TABLET PO SCH (20:18)
[2017-09-17] MEDS: MELATONIN 5 MG TABLET PO SCH (20:18)
[2017-09-17] MEDS: SIMVASTATIN 20 MG TABLET PO SCH (20:18)
[2017-09-17] MEDS ORDERED: TRAZODONE 50 MG TABLET PO SCH (21:00)
[2017-09-18] MEDS: PANTOPRAZOLE 20 MG TABLET PO SCH (06:29)
[2017-09-18] MEDS: LEVOTHYROXINE 50 MCG TABLET PO SCH (06:29)
[2017-09-18 08:46] VITALS: BP 126/66; PULSE 45; RESP 12; TEMP 96.5; O2SAT 95
[2017-09-18] MEDS ORDERED: AMLODIPINE 5 MG TABLET PO SCH (09:00)
--- NOTE | 2017-09-18 09:20 | Progress Note ---
- Date 09/18/17 Subjective: Ramona is seen while resting in bed. She is just waking up for the morning and resistant to being awake. No complaints or concerns. Breathing easily on room air. Case management reported that she had been accepted to the [facility] with anticipated discharge later this morning. Hypotension noted yesterday. Norvasc was decreased to 5mg daily to decrease likelihood for hypotension. IV lasix was also discontinued and 1/2NS was decreased to 50cc.hr. Trazadone initiated last night for insomnia which could explain some of her increased somnolence and resistance to wake up this morning. Objective Vital signs: Temperature 96.5 F L 09/18/17 08:45 Pulse Rate 45 L 09/18/17 08:45 Respiratory Rate 12 09/18/17 08:45 Blood Pressure 126/66 09/18/17 08:45 Pulse Oximetry 95 09/18/17 08:45 Rhythm: Normal Sinus Rhythm (rate 60 on telemetry at time of exam) Height/Weight/BMI: Height 5 ft 2 in Weight 112 lb 6.972 oz Body Mass Index 21.3 Comments: Resting in bed, arouses with soft voice and touch but quickly falls back to sleep. - Constitutional Present: no acute distress, well nourished, well developed, thin, cooperative - Routine HEENT Exam Head: Present: normocephalic, atraumatic Eye: Present: PERRL. Absent: conjunctival icterus ENT: Present: mucous membranes dry - Routine Respiratory Exam Present: CTA bilaterally. Absent: rales, respiratory distress, rhonchi, stridor - Routine Cardiovascular Exam Present: S1, S2, bradycardia - Routine Abdominal Exam Present: soft, normoactive bowel sounds, non distended, non tender - Routine Extremities Exam Present: edema (trace), pulses intact - Routine Back/Spine/Pelvis Exam Back/Spine: Absent: vertebral tenderness - Routine Musculoskeletal Exam Musculoskeletal: Present: moving extremities well - Routine Skin Exam Present: dry, warm. Absent: jaundice Comments: afebrile. - Routine Neurological Exam Present: moving all extremities, normal speech limited exam due to patient sleeping and arouses only briefly. - Routine Psychiatric Exam Present: cooperative Results - Labs CBC & Chem 7: 09/18/17 05:00 09/18/17 05:00 Assessment and Plan (1) ALDEN (acute kidney injury) Current visit: Yes Status: Acute (2) Lumbar compression fracture Current visit: Yes Status: Acute (3) Recurrent falls Current visit: Yes Status: Acute Assessment and Plan: Assessment Acute kidney injury-improved Dehydration-improved Lumbar compression fracture Recent falls Hypertension Hypothyroidism - elevated TSH, Synthroid dose increased PAF Bradycardia, present on admission - improving Hyperlipidemia GERD Stage III CKD Bilateral heel ulcerations (POA) Leukopenia (POA) - stable Anemia (POA) improving Severe tricuspid regurgitation with mod-severe pulmonary hypertension (pressure 62) - 09/16/17 - NEW DIAGNOSIS. Plan - 09/18/17 Some hypotension noted yesterday. Norvasc decreased to 5mg daily and Lasix discontinued. / NS decreased to 50cc/hr for gentle hydration. Current telemetry with heart rate 45. Continue to monitor closely on telemetry. Family resistant to surgical treatment with pacemaker. Oral intake remains poor. Increase in SCr to 2.1. Will continue to monitor closely. Continue to encourage participation in therapies for strengthening and improvement in functional abilities. Bilateral heal ulcerations examined - stage 3 ulceration left heel; unstageable ulceration to right heel. Continue care per wound care team. [place] boots and off load pressure to heels as able. Trazodone initiated last night for insomnia. Increased somnolence this morning most likely to trazodone. Continue to monitor closely. Patient accepted to [facility] with anticipated discharge today. DVT Prophylaxis: SCD's GI Prophylaxis: Protonix Resuscitation Status: Do Not Resuscitate - Time spent with patient Time with patient PN: 25 minutes - Physician Narrative Physician: Don Mojica MD Narrative: Date: 09/18/17 Time: 1235 Have independently interviewed and examined pt. Chart reviewed. Case discussed with CM and my PA. Care plan developed with my supervision; agree with above. Doing okay this afternoon. Sitting up in chair. Denies feeling SOA or congested. Chest pressure or pain. Not having nausea or ab pain. Did eat more breakfast today than prior days. Lungs: decreased, no distress CV: bradycardic, regular MSE: awake alert. Plan: Can discharge to Skilled care. Encourage oral intake of foods/liquids - house nutritional supplement TID. Lisinopril stopped. Amiodarone stopped. Check Lab in 1 week. Can F/U with Dr Interiano in 1 week. See orders for details. Hospital Course Summary Disclaimer: The visit summary below is not to be considered part of the above Progress Note. Hospital Course: 09/12- admission Impression Acute kidney injury- creatinine today 2.3, baseline 1.3 Dehydration with Hyperkalemia and Hypernatremia Recent UTI (Has been on Bactrim 1 week) [id number] Atrial fibrillation Hypertension Carotid stenosis GERD Hypothyroidism Dyslipidemia Macular degeneration Plan Admit patient as outpatient observation under the care of Dr Kennedy for ALDEN, Dehydration Will obtain CBC and BMP on arrival for further medical workup. Initiate 1/2 NS at 100 ml/hr for hydration Will check UA given recent reported UTI. She has been on Bactrim for 1 week which has likely led to ALDEN and hyperkalemia. Monitor renal function closely. Monitor cardiac rhythm given bradycardia. Will stop Amiodarone, unfortunately the half life is approx 60 days. May need to discuss this with Dr De Luna prior to discharge. SCDs to bilateral lower ext for DVT ppx. She does wish to be a do not resuscitate and this order is written Will need to review other home medications once reconciled Will discuss further orders and plan of care with attending, Dr. Kennedy At time of discharge medical care will return to primary care provider, Dr Reyes 09/13 Patient complaining of back pain. Have ordered plain films and images show new acute compression fracture. Fracture is mild and new at L2 and there is progression at T 11. Ordering physical therapy for the patient Renal function continues to improve but above her baseline. She will need an extra day of hydration. Will repeat lab work in the morning. UA shows no sign of infection sequential compression devices are ordered family continues to be anxious 09/14 Continue IV fluids for hydration. Was started on Norvasc daily for HTN. PPI added for chronic GERD 09/15 1. dehydration -IVF, increase for now. -Encourage po intake 2. ALDEN (acute kidney injury) -due to dehydration from poor po intake -Probably near baseline but still appears dry, will increase IVF back to 100ml/ hr 3. Lumbar compression fracture -PT to work with her -may need kyphoplasty if pain uncontrollable 4. Recurrent falls -PT -She may need placement 5. HTN -On lisinopril at home which has been held here due to ALDEN and hypotension -BP are climbing. -No known EF. -Norvasc 5 mg daily and lisinopril 5mg daily 6. Hypothyroid -Continue home replacements -TSH is high (10.3), FT4 pending. Will increase levothyroxine dose -I suspect she is hypothyroid and this could be contributing to the bradycardia 7. PAF -in SR at present. -She is bradycardic. Amiodarone discontinued -I think she is likely going to need a ppm. We need to communicate with Dr. De Luna this coming week -No a candidate for OAC due to falls. -She is on ASA and Plavix at home, will continue 8. GERD -ppi 9. HLP -On Zocor 20mg at home, resume 10. Recent UTI -Treated with Bactrim -Current UA unremarkable 11. Hyperkalemia -Resolved with hydration 12. Hypernatremia -A bit elevated again today, will increase IVF back to 100mg/hr 13. CVA in 2017 -On ASA, Plavix and statin 09/[address] Rogers. Will await for his recommendations. Remains bradycardia in the 50's. Will need to speak with Dr De Luna (pts implant coordinator) at time of Dc. ECHO pending. ALDEN improved. Creatinine is 1.3 which is close to baseline. Continue to work with PT/OT and pain control of compression fx. Miralax, Mom for bowel motivation. Spoke with daughter Arlene regarding safe discharge plan. Encouraged her to speak with other siblings regarding returning home with HH for PT, or facility for ongoing SNU. 09/17 Dr. Rogers is not recommending pacemaker at this time, though feels a Linq device would be beneficial to monitor bradycardia. Could be placed as outpatient. Will need to speak with Dr De Luna (pt's implant coordinator) at time of DC. Plan to continue to monitor. Current telemetry with heart rate 60. Continue to monitor closely on telemetry. Echo 09/16/17: normal systolic LV function, EF 65%, LVH, biatrial dilation, pleural effusion and severe tricuspid regurgitation with mod-severe pulmonary hypertension (pressure 62). Oral intake remains poor. Decrease 1/2NS to 50cc/hr for gentle hydration; will stop IV Lasix. Monitor urinary output and daily weight. Slight increase in creatinine to 1.4. Continue to monitor . Continue to encourage participation in therapies for strengthening and improvement in functional abilities. IRU screen placed. Family with concern that IRU may be too intensive for patient. CM looking into [facility] for skilled care. With patient's declining oral drive and functional status, did discuss about possible hospice care. Family considering this. No BM since admission. Continue bowel motivation. Sleep has been problematic. Family discussed with Dr Reyes about Trazodone at clinic visit, but directly admitted. Would be reasonable to Trazodone 50mg nightly to help sleep/mood. Bilateral heal ulcerations examined - stage 3 ulceration left heel; unstageable ulceration to right heel. Continue care per wound care team. [place] boots and off load pressure to heels as able. Norvasc increased to 10mg this morning as BP has been running high. Afternoon BP decrease to 80s. Will decrease Norvasc to 5mg daily. Recheck labs in AM to monitor blood counts, electrolytes and renal function. Plan - 09/18/17 Some hypotension noted yesterday. Norvasc decreased to 5mg daily and Lasix discontinued. 1/2 NS decreased to 50cc/hr for gentle hydration. Current telemetry with heart rate 45. Continue to monitor closely on telemetry. Family resistant to surgical treatment with pacemaker. Oral intake remains poor. Increase in SCr to 2.1. Will continue to monitor closely. Continue to encourage participation in therapies for strengthening and improvement in functional abilities. Bilateral heal ulcerations examined - stage 3 ulceration left heel; unstageable ulceration to right heel. Continue care per wound care team. Ed boots and off load pressure to heels as able. Trazodone initiated last night for insomnia. Increased somnolence this morning most likely to trazodone. Continue to monitor closely. Patient accepted to [facility] with anticipated discharge today.
[2017-09-18] MEDS: ASPIRIN 81 MG CHEWABLE TABLET PO SCH (10:08)
[2017-09-18] MEDS: CLOPIDOGREL 75 MG TABLET PO SCH (10:08)
[2017-09-18] MEDS: LUTEIN 20 MG CAPSULE PO SCH (10:08)
[2017-09-18] MEDS: POLYETHYL GLYCOL 3350 17gm PACKET PO SCH (10:09)
[2017-09-18] MEDS: DOCUSATE SODIUM 100 MG CAPSULE PO SCH (10:09)
--- NOTE | 2017-09-18 12:48 | Extended Care Facility Orders ---
Admission Orders Admit to:: Half-Way Allergies/Adverse Reactions: Allergies morphine Adverse Reaction (Mild, Verified 09/12/17 15:24) VOMITS Admitting Diagnosis: L2 compression fracture, Debility/Gait instability - needs strengthening. Admitting Physician: Don Mojica MD Attending Physician: Dr Reyes. Code Status: Do Not Resuscitate Anticiapted Length of Stay: 30 days or less Diet: Chopped meat diet. Regular liquids. House nutritional supplement TID. Encourage oral intake of foods/liquids Wound/Incision Care: Wound dressings tx plan: R heel: cleanse and moisturize daily, cover with 3 x 3 Mepilex, place in Ed boot, float heel. L heel: Cleanse, apply Aquacel Ag to wound bed, cover with 3 x 3 Mepilex, place in Ed boot, float heel, change Aquacel q 3 days. May use Facility Protocol or Standing Orders: Yes May have flu vaccine: Yes Evaluations/Treatment: PT, OT Half-Way Certification: I certify that SNF services are required to be given on an Inpatient basis because of the patients need for correction care on a continuing basis for the condition(s) for which he/she received inpatient hospital services prior to his/her transfer to the SNF. SNF inpatient care is necessary for the following reasons Indication for Half-Way: Wound Care/Assessment, Med Admininistration, Other (Skilled PT/OT to maximize functional status ) - Additional Information In Event of Arrest: Do Not Start CPR Resident is Aware of Diagnosis: No (Memory loss ) Additional Orders: F/U with Dr Reyes in 1 week. BMP in 1 week - Dx: Medication use, HTN
--- NOTE | 2017-09-18 12:56 | Discharge Summary ---
Discharge Information Date of admission: 09/12/17 19:13 Anticipated date of discharge: 09/18/17 Attending Physician: Don Mojica MD Primary care physician: Barry Reyes DO Consults: [facility] Consult Reason for consultation: Bilateral decubitus Ulcers Physician Consult: Angelo Rogers Reason For Exam: bradycardia PT/OT/SPEECH - Discharge Diagnosis (1) ALDEN (acute kidney injury) Status: Acute (2) Lumbar compression fracture Status: Acute (3) Recurrent falls Status: Acute Discharge diagnosis Acute kidney injury-improved Associated conditions and complications Hyperkalemia (POA) - resolved Dehydration-improved Lumbar compression fracture Recent falls Gait instability Hypertension Hypothyroidism - elevated TSH, Synthroid dose increased PAF Bradycardia (present on admission) Hyperlipidemia GERD Stage III CKD Bilateral heel ulcerations (POA) Leukopenia (POA) - stable Anemia (POA) improving Severe tricuspid regurgitation with mod-severe pulmonary hypertension (pressure 62) - Procedures Procedures: Date of Exam: 09/16/17 Type of Exam: US ECHO Doppler complete Left atrium is dilated. Left ventricular end-diastolic dimension is normal. Left ventricle wall thickness increased. LV systolic function is normal with ejection fraction of 65%. Right atrium is dilated. Right ventricle is normal. Aortic root dimension is normal. Mitral valve is morphologically normal with mild mitral regurgitation. Aortic valve shows mild aortic insufficiency with no stenosis. Tricuspid valve shows severe tricuspid regurgitation with moderate -to-severe pulmonary hypertension with estimated pulmonary artery systolic pressure of 62. Pulmonary valve shows [id number] pulmonary insufficiency. There is no pericardial effusion. IMPRESSION 1. Normal LV systolic function with ejection fraction of 65%. 2. Biatrial dilation. 3. Left ventricular hypertrophy. 4. Pleural effusion present. 5. Mild mitral regurgitation. 6. Mild aortic insufficiency. 7. Severe tricuspid regurgitation with [id number] pulmonary hypertension with estimated pulmonary artery systolic pressure of 62. 8. [id number] pulmonary insufficiency. - Laboratory Labs: Admit Lab 09/12/17 16:07 WBC 4.6 Hgb 11.2 L Hct 35.8 L MCV 99.7 Plt Count 205 Neut % (Auto) 78.4 H Lymph % (Auto) 12.1 L [place] % (Auto) 7.8 Eos % (Auto) 0.9 Baso % (Auto) 0.4 Admit Lab 09/12/17 16:07 Sodium 146 H Potassium 5.3 H Chloride 114 H Carbon Dioxide 19 L Anion Gap 13 BUN 42.0 H Creatinine 2.1 H D GFR Calculation 22 BUN/Creatinine Ratio 20 Glucose 94 Calculated Osmolality 292 H Calcium 8.9 Thyroid tests 09/15/17 09/15/17 05:05 05:05 TSH 10.30 H Free T4 2.32 H Liver Function Tests 09/17/17 03:55 Total Bilirubin 0.70 AST 26 ALT 30 Alkaline Phosphatase 124 Total Protein 7.5 Albumin 4.0 Globulin 3.5 Albumin/Globulin Ratio 1.1 09/18/17 05:00 09/18/17 05:00 - Radiology Radiology: Date of Exam: 09/13/17 PROCEDURE: XR lumbar spine 2-3V Findings: Alignment of the lumbar spine is stable. Interval development of mild superior endplate compression deformity of L2. There is also slight worsening in a T11 compression fracture with 30-40% height loss. No additional area concerning for fracture. Mild disk space narrowing at L2-L3. The remaining disk spaces are maintained. Prominent calcified uterine fibroid noted. Impression: New mild compression fracture of L2 and worsening in the existing T11 compression fracture. Date of Exam: 09/16/17 PROCEDURE: XR chest 1V Findings: New airspace disease in the left lower lobe with a small left effusion. Right lung appears clear. No pneumothorax. Cardiac silhouette remains moderately enlarged. Mediastinal contours are stable. Pulmonary vascularity appears normal. Impression: New left effusion and basilar airspace disease. History of Present Illness HPI: Smiley is a pleasant 87-year-old female who is known to the hospitalist services from recent admission in July 2017. Was admitted that time following a fall with a left hip fracture. She tolerated this well, was discharged to the [facility] for skilled rehabilitation and return home with her family last week on 09/04/17. Since that time. Family has noted that she is had a decrease in her appetite and oral intake. She has been able to get up and ambulate with assistance. On Saturday09/10/17. She fell which was witnessed by a nurse at home. At that time it was not felt that she had indicate any injuries and she was not evaluated. She was taken to see primary care provider, Dr. Reyes today for evaluation. At that time she was found to be hypotensive 80s systolic. Basic labs were obtained that did reveal elevation in creatinine up to 2.3, baseline 1.3. Electrolytes were also abnormal, which was concerning for dehydration. She was noted to be bradycardic 38-42 per minute. Given these findings the hospitalist services were contacted and accepted patient for direct admission to [facility] for further evaluation and workup. She is admitted as outpatient observation. She is alert and oriented on arrival to [facility]. She is accompanied with 2 daughters and a granddaughter who is an RN that helps care for her. All history is obtained from family at the bedside. They do report she had recently had a urinary tract infection and has been on Bactrim for 1 week. We did discuss advance directives and she is a DNR. For complete details of the H&P refer to that document. Objective Vital signs: Temperature 96.5 F L 09/18/17 08:45 Pulse Rate 45 L 09/18/17 08:45 Respiratory Rate 12 09/18/17 08:45 Blood Pressure 126/66 09/18/17 08:45 Pulse Oximetry 95 09/18/17 08:45 Rhythm: Normal Sinus Rhythm (rate 60 on telemetry at time of exam) Height/Weight/BMI: Height 1.57 m Weight 51 kg Body Mass Index 21.3 Hospital Course This is a general summary of the patient's hospital course. For more details refer to the complete medical record. Hospital course: 09/12/17 - Admission Admit patient as outpatient observation under the care of Dr Kennedy for ALDEN, Dehydration Will obtain CBC and BMP on arrival for further medical workup. Initiate 1/2 NS at 100 ml/hr for hydration Will check UA given recent reported UTI. She has been on Bactrim for 1 week which has likely led to ALDEN and hyperkalemia. Monitor renal function closely. Monitor cardiac rhythm given bradycardia. Will stop Amiodarone, unfortunately the half life is approx 60 days. May need to discuss this with Dr De Luna prior to discharge. SCDs to bilateral lower ext for DVT ppx. She does wish to be a do not resuscitate and this order is written Will need to review other home medications once reconciled Will discuss further orders and plan of care with attending, Dr. Kennedy At time of discharge medical care will return to primary care provider, Dr Reyes 09/13 Patient complaining of back pain. Have ordered plain films and images show new acute compression fracture. Fracture is mild and new at L2 and there is progression at T 11. Ordering physical therapy for the patient Renal function continues to improve but above her baseline. She will need an extra day of hydration. Will repeat lab work in the morning. UA shows no sign of infection sequential compression devices are ordered family continues to be anxious 09/14 Continue IV fluids for hydration. Was started on Norvasc daily for HTN. PPI added for chronic GERD 09/15 1. dehydration -IVF, increase for now. -Encourage po intake 2. ALDEN (acute kidney injury) -due to dehydration from poor po intake -Probably near baseline but still appears dry, will increase IVF back to 100ml/ hr 3. Lumbar compression fracture -PT to work with her -may need kyphoplasty if pain uncontrollable 4. Recurrent falls -PT -She may need placement 5. HTN -On lisinopril at home which has been held here due to ALDEN and hypotension -BP are climbing. -No known EF. -Norvasc 5 mg daily and lisinopril 5mg daily 6. Hypothyroid -Continue home replacements -TSH is high (10.3), FT4 pending. Will increase levothyroxine dose -I suspect she is hypothyroid and this could be contributing to the bradycardia 7. PAF -in SR at present. -She is bradycardic. Amiodarone discontinued -I think she is likely going to need a ppm. We need to communicate with Dr. De Luna this coming week -No a candidate for OAC due to falls. -She is on ASA and Plavix at home, will continue 8. GERD -ppi 9. HLP -On Zocor 20mg at home, resume 10. Recent UTI -Treated with Bactrim -Current UA unremarkable 11. Hyperkalemia -Resolved with hydration 12. Hypernatremia -A bit elevated again today, will increase IVF back to 100mg/hr 13. CVA in 2017 -On ASA, Plavix and statin 09/[address] Rogers. Will await for his recommendations. Remains bradycardia in the 50's. Will need to speak with Dr De Luna (pts credit risk officer) at time of Dc. ECHO pending. ALDEN improved. Creatinine is 1.3 which is close to baseline. Continue to work with PT/OT and pain control of compression fx. Stefani, Mom for bowel motivation. Spoke with daughter Arlene regarding safe discharge plan. Encouraged her to speak with other siblings regarding returning home with HH for PT, or facility for ongoing SNU. 09/17 Dr. Rogers is not recommending pacemaker at this time, though feels a Linq device would be beneficial to monitor bradycardia. Could be placed as outpatient. Will need to speak with Dr De Luna (pt's credit risk officer) at time of DC. Plan to continue to monitor. Current telemetry with heart rate 60. Continue to monitor closely on telemetry. Echo 09/16/17: normal systolic LV function, EF 65%, LVH, biatrial dilation, pleural effusion and severe tricuspid regurgitation with mod-severe pulmonary hypertension (pressure 62). Oral intake remains poor. Decrease 1/2NS to 50cc/hr for gentle hydration; will stop IV Lasix. Monitor urinary output and daily weight. Slight increase in creatinine to 1.4. Continue to monitor . Continue to encourage participation in therapies for strengthening and improvement in functional abilities. IRU screen placed. Family with concern that IRU may be too intensive for patient. CM looking into [facility] for skilled care. With patient's declining oral drive and functional status, did discuss about possible hospice care. Family considering this. No BM since admission. Continue bowel motivation. Sleep has been problematic. Family discussed with Dr Reyes about Trazodone at clinic visit, but directly admitted. Would be reasonable to Trazodone 50mg nightly to help sleep/mood. Bilateral heal ulcerations examined - stage 3 ulceration left heel; unstageable ulceration to right heel. Continue care per wound care team. Sumner boots and off load pressure to heels as able. Norvasc increased to 10mg this morning as BP has been running high. Afternoon BP decrease to 80s. Will decrease Norvasc to 5mg daily. Recheck labs in AM to monitor blood counts, electrolytes and renal function. 09/18/17 Discharge Some hypotension noted yesterday. Norvasc decreased to 5mg daily and Lasix discontinued. Current telemetry with heart rate 45. Family resistant to surgical treatment with pacemaker. Oral intake remains poor. Increase in SCr to 2.1. Continue to encourage participation in therapies for strengthening and improvement in functional abilities. Bilateral heal ulcerations examined - stage 3 ulceration left heel; unstageable ulceration to right heel. Continue care per wound care team. Sumner boots and off load pressure to heels as able. Wound care: R heel: cleanse and moisturize daily, cover with 3 x 3 Mepilex, place in Sumner boot, float heel. L heel: Cleanse, apply Aquacel Ag to wound bed, cover with 3 x 3 Mepilex, place in Sumner boot, float heel, change Aquacel q 3 days. Trazodone initiated last night for insomnia. Increased somnolence this morning most likely to trazodone. Continue to monitor closely. Will discharge to [facility] for residential care today. Diet: Chopped meats, regular liquids. House nutritional supplement TID. Encourage oral intake of foods and liquids. Activities: as tolerated, walker for assistance. Recheck BMP in 1 week secondary to medication use. F/U with Dr Reyes in 1 week for medical evaluation. See orders for details. Time spent with patient: discharge greater than 30 minutes Resuscitation Status: Do Not Resuscitate Discharge Plan - Discharge Disposition Discharge Date: 09/18/17 Disposition: 03 To SNU Not [facility] (SNF) *Condition: Stable Reason For Visit (Visit label in EMR): ALDEN, Hyperkalemia, weakness - Discharge Medications *Discharge Medications: New Levothyroxine Sodium [Synthroid] 50 mcg PO ACB tab Milk of Magnesia [Mom] 30 ml PO DAILY PRN udc PRN Reason: Constipation Tramadol [Ultram] 50 - 100 mg PO Q6H PRN #30 tab PRN Reason: Pain Trazodone [Desyrel] 50 mg PO HS #30 tab Pantoprazole Sodium [Protonix] 20 mg PO ACB tablet. Amlodipine [Norvasc] 5 mg PO DAILY #30 tab Continue Lutein 20 mg PO DAILY #0 Clopidogrel Bisulfate [Clopidogrel] 75 mg PO DAILY #0 Simvastatin [Zocor] 20 mg PO HS 30 Days #30 tab PEG 3350 17gm PACKET [Miralax] 17 gm PO DAILY packet Docusate Sodium 100 mg PO DAILY Melatonin 5 mg PO HS Acetaminophen [Tylenol Arthritis] 650 mg PO BID Mirtazapine [Remeron] 15 mg PO HS Aspirin Chewable [ASA] 81 mg PO DAILY tab.chew Discontinued Amiodarone [Pacerone] 200 mg PO BID Lisinopril [Prinivil] 20 mg PO DAILY Levothyroxine Tab [Synthroid] 25 mcg PO ACB - Discharge Packet/Instructions *Diet: Chopped meats, regular liquids. House nutritional supplement TID. Encourage oral intake of foods and liquids. *Activity: As tolerated, walker for assitance. *Pain Management/Treatment: Tylenol and Tramdol for pain. *Wound Care: Wound dressings tx plan: R heel: cleanse and moisturize daily, cover with 3 x 3 Mepilex, place in Sumner boot, float heel. L heel: Cleanse, apply Aquacel Ag to wound bed, cover with 3 x 3 Mepilex, place in Sumner boot, float heel, change Aquacel q 3 days. *Expected Signs/Symptoms: Improvement of strenght and functional abilities. *Notify Physician if: Temp >100.4. Worsening back pain. *During Business Hours Contact: Nursing staff at care facility *After Business Hours Contact: Nursing staff at care facility *Pending Lab/Results: No Pending Lab - Referrals/Follow Up *Referrals/Follow Up: Barry Reyes DO [Family Provider] - 1 Week (Hospital follow up. ) - Patient Handouts Patient Handouts: Hyperkalemia (GEN), Weakness (GEN) - Dismissal Complete Discharge Instructions are:: Complete Physician Narrative - Narrative Physician: Don Mojica MD Attestation Narrative: Date: 09/18/17 Time: 1250 I have independently interviewed and examined patient prior to discharge. See my progress note from today for details. Medically stable for discharge to skilled care.
[2017-09-18] MEDS: 1/2 NS 1,000 ML IV SCH (17:11)
== END 2017-09-18 14:50 | DRG 682 ==
LOC: MED → SUATTDRO 19:13
PROVIDERS: ADMIT Family Medicine; ATTEND Hospitalist